=== PATIENT | male | born 1960 | race Caucasian/White ===

== ENCOUNTER → 2019-01-14 | Outpatient (CLI) | payer OTHER, SELFPAY ==
[2019-01-14 20:23] VITALS: BMI 35.0
[2019-01-14 22:23] LABS: Absolute Lymphocyte Count 1.96 X10^3/uL (0.83-4.51); Absolute Neutrophil Count 4.4 X10^3/uL (2.0-7.7); Basophil# 0.02 X10^3/uL; Basophil% 0.3 % (0-1); Eosinophil# 0.09 X10^3/uL; Eosinophils% 1.2 % (0-5); Hematocrit 44.5 % (40-54); Hemoglobin 14.8 g/dL (13.0-16.5); Lymphocyte # 1.96 X10^3/ul (4.0); Lymphocyte % 27.1 % (19-41); Mean Corp Hgb Conc 33.3 g/dL (32-36); Mean Corpuscular Hgb 30.7 pg (27.0-32.0); Mean Corpuscular Volume 92.3 fL (80-94); Mean Platelet Vol. 9.6 fl (6.2-12.0); Monocyte# 0.69 X10^3/uL; Monocyte% 9.6 % (0-10); NRBC Flagged by Analyzer 0 % (0-5); Neutrophil # 4.43 X10^3/uL (2.7-7.7); Neutrophil % 61.4 % (47-70); Platelet Count 278 K/mm3 (150-450); RBC Distribution Width CV 12.1 % (11.6-14.6); RBC Distribution Width SD 41.3 fl (35.1-43.9); Red Blood Count 4.82 M/mm3 (4.6-6.2); White Blood Count 7.2 K/mm3 (4.4-11.0)
[2019-01-14 22:40] LABS: AST(SGOT) 24 U/L (15-37); Alanine Aminotransfer ALT/SGPT 33 U/L (16-61); Albumin, Serum 3.4 g/dL (3.2-5.0); Alkaline Phosphatase 88 U/L (45-117); Anion Gap 6 (5-15); BUN 31 mg/dL (7-18); BUN/Creat Ratio 28.2 RATIO (10-20); Calcium,Total 8.9 mg/dL (8.5-10.1); Chloride 105 mmol/L (98-107); Cholesterol 221 mg/dL (200); EST Glomerular Filtration Rate 73 mL/min (>60); Est Glom Filt Rate - Afr Amer 89 mL/min (>60); Globulin 3.3 g/dL (2.2-4.2); Glucose 182 mg/dL (74-106); High Density Lipoprotein 46 mg/dL; PSA,Total - Annual Screen 0.44 ng/mL (0.00-4.00); Protein, Total 6.7 g/dL (6.4-8.2); Sodium Level 143 mmol/L (136-145); Triglycerides 277 mg/dL; Very Low Density Lipoprotein 55 mg/dL (5-40)
== END | disposition home or self-care (01) ==
PROVIDERS: Referring Provider Nurse Practitioner; Visit Provider Nurse Practitioner
DX: I10 Essential (primary) hypertension (principal); R35.0 Frequency of micturition
CPT/HCPCS: 80053; 80061; 84153; 85025; G0103

== ENCOUNTER → 2019-03-05 17:30 | Outpatient (CLI) | payer OTHER, SELFPAY ==
[2019-03-05 21:02] VITALS: BMI 34.7
[2019-03-06 01:35] LABS: Rheumatoid Factor < 10.0 IU/mL (<15); Thyroid Stim Hormone (TSH) 0.85 uIU/mL (0.358-3.74)
[2019-03-08 21:04] LABS: ANTINUCLEAR ANTIBODIES DIRECT Negative (Negative)
== END ==
PROVIDERS: Referring Provider Nurse Practitioner; Visit Provider Nurse Practitioner
DX: G62.9 Polyneuropathy, unspecified (principal); M25.50 Pain in unspecified joint; R73.9 Hyperglycemia, unspecified
CPT/HCPCS: 84443; 86038; 86225; 86235; 86431

== ENCOUNTER → 2020-01-26 | Outpatient (CLI) | payer OTHER, SELFPAY ==
[2020-01-26 17:58] VITALS: BMI 35.6
[2020-01-26 21:38] LABS: AST(SGOT) 28 U/L (15-37); Absolute Lymphocyte Count 2.03 X10^3/uL (0.83-4.51); Absolute Neutrophil Count 6.4 X10^3/uL (2.0-7.7); Alanine Aminotransfer ALT/SGPT 39 U/L (16-61); Albumin, Serum 3.6 g/dL (3.2-5.0); Alkaline Phosphatase 71 U/L (45-117); Anion Gap 6 (5-15); BUN 23 mg/dL (7-18); BUN/Creat Ratio 22.8 RATIO (10-20); Basophil# 0.03 X10^3/uL; Basophil% 0.3 % (0-1); Calcium,Total 9.4 mg/dL (8.5-10.1); Chloride 104 mmol/L (98-107); Cholesterol 229 mg/dL (200); Creatinine, Serum 1.01 mg/dL (0.70-1.30); EST Glomerular Filtration Rate 81 mL/min (>60); Eosinophil# 0.13 X10^3/uL; Eosinophils% 1.4 % (0-5); Est Glom Filt Rate - Afr Amer 98 mL/min (>60); Globulin 3.7 g/dL (2.2-4.2); Glucose 155 mg/dL (74-106); Hematocrit 46.4 % (40-54); Hemoglobin 15.3 g/dL (13.0-16.5); High Density Lipoprotein 56 mg/dL; Lymphocyte # 2.03 X10^3/ul (4.0); Lymphocyte % 21.6 % (19-41); Mean Corpuscular Hgb 31.2 pg (27.0-32.0); Mean Corpuscular Volume 94.5 fL (80-94); Mean Platelet Vol. 10.1 fl (6.2-12.0); Monocyte# 0.78 X10^3/uL; Monocyte% 8.3 % (0-10); NRBC Flagged by Analyzer 0 % (0-5); Neutrophil # 6.38 X10^3/uL (2.7-7.7); PSA,Total - Annual Screen 0.46 ng/mL (0.00-4.00); Platelet Count 284 K/mm3 (150-450); Potassium 3.5 mmol/L (3.5-5.1); Protein, Total 7.3 g/dL (6.4-8.2); RBC Distribution Width CV 12.4 % (11.6-14.6); RBC Distribution Width SD 42.8 fl (35.1-43.9); Red Blood Count 4.91 M/mm3 (4.6-6.2); Sodium Level 139 mmol/L (136-145); Triglycerides 142 mg/dL; Very Low Density Lipoprotein 28 mg/dL (5-40); White Blood Count 9.4 K/mm3 (4.4-11.0)
== END | disposition home or self-care (01) ==
LOC: OLS.AHF 21:12 → LABSPEC 01-27 07:18
PROVIDERS: Referring Provider Nurse Practitioner; Visit Provider Nurse Practitioner
DX: I10 Essential (primary) hypertension (principal); R35.0 Frequency of micturition; Z12.5 Encounter for screening for malignant neoplasm of prostate
CPT/HCPCS: 80053; 80061; 84153; 85025; G0103

== ENCOUNTER → 2021-02-07 00:01 | Outpatient (CLI) | payer OTHER, SELFPAY ==
[2021-02-07 00:08] LABS: Absolute Lymphocyte Count 1.69 X10^3/uL (0.83-4.51); Absolute Neutrophil Count 5.9 X10^3/uL (2.0-7.7); Basophil# 0.03 X10^3/uL; Basophil% 0.3 % (0-1); Eosinophil# 0.18 X10^3/uL; Hemoglobin 13.8 g/dL (13.0-16.5); Lymphocyte # 1.69 X10^3/ul (0.83-4.51); Lymphocyte % 18.6 % (19-41); Mean Corp Hgb Conc 32.9 g/dL (32-36); Mean Corpuscular Hgb 31.8 pg (27.0-32.0); Mean Corpuscular Volume 96.8 fL (80-94); Monocyte# 1.33 X10^3/uL; Monocyte% 14.6 % (0-10); NRBC Flagged by Analyzer 0 % (0-5); Neutrophil # 5.85 X10^3/uL (2.7-7.7); Neutrophil % 64.3 % (47-70); Platelet Count 288 K/mm3 (150-450); RBC Distribution Width CV 12.7 % (11.6-14.6); RBC Distribution Width SD 44.4 fl (35.1-43.9); Red Blood Count 4.34 M/mm3 (4.6-6.2); White Blood Count 9.1 K/mm3 (4.4-11.0)
[2021-02-07 00:29] LABS: ALB/GLOB Ratio 0.9 RATIO (0.9-2.4); AST(SGOT) 25 U/L (15-37); Alanine Aminotransfer ALT/SGPT 32 U/L (16-61); Albumin, Serum 3.3 g/dL (3.2-5.0); Alkaline Phosphatase 84 U/L (45-117); Anion Gap 4 (5-15); BUN 27 mg/dL (7-18); BUN/Creat Ratio 29.3 RATIO (10-20); Calcium,Total 9.1 mg/dL (8.5-10.1); Chloride 104 mmol/L (98-107); Cholesterol 187 mg/dL (200); Creatinine, Serum 0.92 mg/dL (0.70-1.30); EST Glomerular Filtration Rate 89 mL/min (>60); Est Glom Filt Rate - Afr Amer 108 mL/min (>60); Globulin 3.7 g/dL (2.2-4.2); Glucose 108 mg/dL (74-106); High Density Lipoprotein 46 mg/dL; Potassium 3.3 mmol/L (3.5-5.1); Sodium Level 136 mmol/L (136-145); Triglycerides 130 mg/dL; Very Low Density Lipoprotein 26 mg/dL (5-40)
[2021-02-07 00:30] LABS: PSA,Total - Annual Screen 0.56 ng/mL (0.00-4.00); Thyroid Stim Hormone (TSH) 0.86 uIU/mL (0.358-3.74)
== END ==
PROVIDERS: PCP Nurse Practitioner; Referring Provider Nurse Practitioner; Visit Provider Nurse Practitioner
DX: I10 Essential (primary) hypertension (principal); J30.2 Other seasonal allergic rhinitis; M25.521 Pain in right elbow; M25.522 Pain in left elbow; R35.0 Frequency of micturition
CPT/HCPCS: 80053; 80061; 84153; 84439; 84443; 85025; G0103

== ENCOUNTER → 2021-12-17 | Outpatient (CLI) | payer OTHER, SELFPAY ==
[2021-12-17 21:44] LABS: AST(SGOT) 38 U/L (15-37); Alanine Aminotransfer ALT/SGPT 57 U/L (16-61); Albumin, Serum 3.6 g/dL (3.2-5.0); Alkaline Phosphatase 85 U/L (45-117); Anion Gap 5 (5-15); BUN 21 mg/dL (7-18); BUN/Creat Ratio 15.9 RATIO (10-20); Calcium,Total 9.4 mg/dL (8.5-10.1); Chloride 103 mmol/L (98-107); Cholesterol 222 mg/dL (200); Creatinine, Serum 1.32 mg/dL (0.70-1.30); EST Glomerular Filtration Rate 59 mL/min (>60); Est Glom Filt Rate - Afr Amer 71 mL/min (>60); Globulin 3.5 g/dL (2.2-4.2); Glucose 94 mg/dL (74-106); High Density Lipoprotein 46 mg/dL; Potassium 4.3 mmol/L (3.5-5.1); Protein, Total 7.1 g/dL (6.4-8.2); Sodium Level 139 mmol/L (136-145); Triglycerides 305 mg/dL; Very Low Density Lipoprotein 61 mg/dL (5-40)
[2021-12-17 21:50] LABS: Absolute Lymphocyte Count 2.18 X10^3/uL (0.83-4.51); Absolute Neutrophil Count 5.3 X10^3/uL (2.0-7.7); Basophil# 0.02 X10^3/uL; Basophil% 0.2 % (0-1); Eosinophil# 0.23 X10^3/uL; Eosinophils% 2.6 % (0-5); Hematocrit 42.4 % (40-54); Hemoglobin 14.3 g/dL (13.0-16.5); Lymphocyte # 2.18 X10^3/ul (0.83-4.51); Lymphocyte % 24.5 % (19-41); Mean Corp Hgb Conc 33.7 g/dL (32-36); Mean Corpuscular Hgb 33.6 pg (27.0-32.0); Mean Corpuscular Volume 99.5 fL (80-94); Mean Platelet Vol. 9.6 fl (6.2-12.0); Monocyte# 1.15 X10^3/uL; Monocyte% 12.9 % (0-10); NRBC Flagged by Analyzer 0 % (0-5); Neutrophil # 5.29 X10^3/uL (2.7-7.7); Neutrophil % 59.4 % (47-70); Platelet Count 252 K/mm3 (150-450); RBC Distribution Width CV 13.4 % (11.6-14.6); RBC Distribution Width SD 48.2 fl (35.1-43.9); Red Blood Count 4.26 M/mm3 (4.6-6.2); White Blood Count 8.9 K/mm3 (4.4-11.0)
[2021-12-20 14:06] LABS: PSA, Free 0.16 ng/mL; PSA, Free % 29.9 % (.); PSA, Total Ultrasensitive 0.536 ng/mL (0.000-4.000)
== END | disposition home or self-care (01) ==
PROVIDERS: PCP Nurse Practitioner; Visit Provider Nurse Practitioner
DX: I10 Essential (primary) hypertension (principal)
CPT/HCPCS: 80053; 80061; 84153; 84154; 85025

== ENCOUNTER → 2023-03-19 | Outpatient (CLI) | payer BC, SELFPAY ==
[2023-03-19 22:15] LABS: Absolute Lymphocyte Count 2.55 X10^3/uL (0.83-4.51); Absolute Neutrophil Count 5.8 X10^3/uL (2.0-7.7); Basophil# 0.03 X10^3/uL; Basophil% 0.3 % (0-1); Eosinophil# 0.11 X10^3/uL; Eosinophils% 1.1 % (0-5); Hematocrit 44.3 % (40-54); Hemoglobin 14.6 g/dL (13.0-16.5); Lymphocyte # 2.55 X10^3/ul (0.83-4.51); Lymphocyte % 25.7 % (19-41); Mean Corpuscular Hgb 32.6 pg (27.0-32.0); Mean Corpuscular Volume 98.9 fL (80-94); Mean Platelet Vol. 9.5 fl (6.2-12.0); Monocyte# 1.41 X10^3/uL; Monocyte% 14.2 % (0-10); NRBC Flagged by Analyzer 0 % (0-5); Neutrophil # 5.78 X10^3/uL (2.7-7.7); Neutrophil % 58.4 % (47-70); Platelet Count 285 K/mm3 (150-450); RBC Distribution Width CV 13.9 % (11.6-14.6); RBC Distribution Width SD 50.4 fl (35.1-43.9); Red Blood Count 4.48 M/mm3 (4.6-6.2); White Blood Count 9.9 K/mm3 (4.4-11.0)
[2023-03-19 22:45] LABS: ALB/GLOB Ratio 0.9 RATIO (0.9-2.4); AST(SGOT) 26 U/L (15-37); Alanine Aminotransfer ALT/SGPT 40 U/L (16-61); Albumin, Serum 3.4 g/dL (3.2-5.0); Alkaline Phosphatase 81 U/L (45-117); Anion Gap 6 (5-15); BUN 22 mg/dL (7-18); BUN/Creat Ratio 20.2 RATIO (10-20); Calcium,Total 8.8 mg/dL (8.5-10.1); Chloride 104 mmol/L (98-107); Cholesterol 201 mg/dL (200); Creatinine, Serum 1.09 mg/dL (0.70-1.30); EST Glomerular Filtration Rate 73 mL/min (>60); Est Glom Filt Rate - Afr Amer 88 mL/min (>60); Globulin 3.6 g/dL (2.2-4.2); Glucose 104 mg/dL (74-106); High Density Lipoprotein 49 mg/dL; PSA,Total - Annual Screen 0.64 ng/mL (0.00-4.00); Potassium 3.7 mmol/L (3.5-5.1); Sodium Level 139 mmol/L (136-145); Thyroid Stim Hormone (TSH) 1.58 uIU/mL (0.358-3.74); Triglycerides 204 mg/dL; Very Low Density Lipoprotein 41 mg/dL (5-40)
== END | disposition home or self-care (01) ==
PROVIDERS: PCP Nurse Practitioner; Visit Provider Nurse Practitioner
DX: I10 Essential (primary) hypertension (principal); L40.50 Arthropathic psoriasis, unspecified; G62.9 Polyneuropathy, unspecified; R35.0 Frequency of micturition
CPT/HCPCS: 80053; 80061; 84153; 84443; 85025; G0103

== ENCOUNTER → 2024-09-23 | Outpatient (CLI) | payer BC, SELFPAY ==
--- OUTSIDE RECORDS SUMMARY | 2024-09-24 03:08 | XMS RPT_ITS | CCD ---
Author Organization [facility] CliniSytn Care Team Providers Care Fresh Work Wrapper Layer Name Role Phone TENNILLE COLBERT Unavailable Unavailable ROSNECK, TENNILLE Unavailable Unavailable MAIN, BENNETT A Referring Unavailable MAIN, BENNETT A Referring Unavailable MAIN, BENNETT A Referring Unavailable MAIN, BENNETT A Referring Unavailable MAIN, BENNETT A Referring Unavailable MAIN, BENNETT A Referring Unavailable MAIN, BENNETT A Referring Unavailable MAIN, BENNETT A Referring Unavailable MAIN, BENNETT A Referring Unavailable MAIN, BENNETT A Referring Unavailable MAIN, BENNETT A Referring Unavailable MAIN, BENNETT A Referring Unavailable MAIN, BENNETT A Referring Unavailable MAIN, BENNETT A Referring Unavailable MAIN, BENNETT A Referring Unavailable MAIN, BENNETT A Referring Unavailable MAIN, BENNETT A Referring Unavailable MAIN, BENNETT A Referring Unavailable MAIN, BENNETT A Referring Unavailable MAIN, BENNETT A Referring Unavailable MAIN, BENNETT A Referring Unavailable Pcp, No Unavailable Unavailable [place] DIRECTOR CHILD.ASSISTANT TRACK AND FIELD COACH, Dmitri L Primary Care Provide r Pcp, No Unavailable Unavailable [place] DIRECTOR CHILD.ASSISTANT TRACK AND FIELD COACH, Dmitri L Primary Care Provide r Ian CAKE STRIPPER, Dmitri Attending Unavailable [place] CAKE STRIPPER, Dmitri Primary Care Unavailable Pcp DIRECTOR CHILD, No Unavailable Unavailable [place] DIRECTOR CHILD.ASSISTANT TRACK AND FIELD COACH, Dmitri L Primary Care Provide r [place] DIRECTOR CHILD-ASSISTANT TRACK AND FIELD COACH, Dmitri L Primary Care Provide r Pcp DIRECTOR CHILD, No Unavailable Unavailable BOSTON, DMITRI L Primary Care Unavailable BOSTON, DMITRI L Primary Care Unavailable LOU LEAL Attending UnavailSRAVANI Jennings Attending Unavailable BOSTON, DMITRI L Primary Care Unavailable SRAVANI ALLEN Attending Unavailable [place], DMITRI L Primary Care Unavailable CASSANDRA SULLIVAN Attending Unavailab le BOSTON, DMITRI L Primary Care Unavailable CASSANDRA SULLIVAN Attending Unavailab DMITRI Carter Primary Care Unavailable CASSANDRA SULLIVAN Attending Unavailab DMITRI Carter Primary Care Unavailable Allergies Allergy Classification Reported Allergen(s) Allergy Type Date of Onset Reaction(s) Facility (3 sources) meloxicam; Translations: [MELOXICAM] Drug Allergy 07-22-2024 Rash [facility] Other [facility] Medications Current Medications Medication Drug Class(es) Dates Sig (Normalized) Sig (Original) 0.8 ml adalimumab 50 mg/ml auto-injector (11 sources) Tumor Necrosis Factor Shannan Start: 01-28-2022 HUMIRA PEN 40 mg/0.8 mL 01/28/2022 Active Start: 12-17-2021 Adalimumab (Hu ana) 40 mg/0.8 mL syringe kit Active 0 SC .COMPLEX December 16, 2021 11:00pm inject one - 40 mg/0.8 mL syringe every 2 weeks subcut [id number] 200 actuat albuterol 0.09 mg/actuat metered dose inhaler (9 sources) beta2-Adrenergic Agonist Start: 07-22-2024 take 2 puff(s) by inhalation every four hours as needed for wheezing albuterol HFA (PROVENTIL HFA, VENTOLIN HFA) 90 mcg/actuation inhaler Inhale 2 puffs as instructed every 4 hours as needed for wheezing/shortness of breath. 1 each 07/22/2024 Active Start: 08-27-2019 End: 03-19-2023 take 1 puff(s) by inhalation every four hours Albuterol Sulfate (Proair Hfa) 90 mcg/actuation HFA aerosol inhaler Active 2 PUFF INHALATION Q4H 8.5 March 19, 2023 7:40pm take 2 puff(s) by in halation every six hours for wheezing albuterol 90 mcg/actuation inhaler Inhale 2 puffs every 6 hours if needed for wheezing. Active ascorbic acid 1000 mg oral tablet (6 sources) Vitamin C take 1 tablet by mouth once daily Ascorbic Acid 1,000 mg tablet 1 tab(s) orally once a day for 30 day(s) Active b complex 0.4 mg tablet (1 source) take 1 tablet by mouth once daily b complex 0.4 mg tablet Take 1 tablet by mouth once daily. Active chlorthalidone 25 mg oral tablet (19 sources) Thiazide-like Diuretic Start: 01-15-20 End: 03-19-20 take 25 mg by mouth once daily Chlorthalidone Active 25 MG PO DAILY 90 March 19, 2023 7:40pm Comment on above: Take 25 mg by mouth once daily. cholecalciferol 0.01 mg oral tablet (6 sources) Vitamin D cholecalciferol (VITAMIN D3) 400 unit tab as directed orally once a day for 30 day(s) Active take 1 tablet by mouth once brian y cholecalciferol (Vitamin D3) 25 MCG (1000 UT) tablet Take 1,000 Units by mouth once daily. Active cyclobenzaprine hydrochloride 10 mg oral tablet (8 sources) Muscle Relaxant Start: 03-19-2023 take 10 mg by mouth three times daily Cyclobenzaprine Active 10 MG PO THREE TIMES A DAY 60 March 19, 2023 12:00am Start: 03-18-2023 End: 09-13-2024 take 1 tablet by mouth every eight hours as needed cyclobenzaprine (FLEXERIL) 10 mg tablet Take 1 tablet by mouth every 8 hours as needed. 8 tablet 03/18/2023 09/13/2024 Discontinued folic acid 1 mg oral tablet (12 sources) Start: 08-18-2020 folic acid 1 m g tablet 08/18/2020 Active lifitegrast 50 mg/ml ophthalmic solution (11 sources) Lymphocyte Function-Associate d Antigen-1 Antagonist Start: 02-15-2022 End: 02-15-2023 take 1 drop(s) into the eye(s) twice daily XIIDRA 5 % ophthalmic drops INSTILL 1 DROP IN BOTH EYES TWICE DAILY 60 mL 2 03/01/2022 Active Start: 06-27-2021 End: 02-15-2022 take 1 drop(s) into the eye(s) twice daily XIIDRA 5 % ophthalmic drops USE 1 DROP IN EYES TWICE DAILY. 60 mL 2 06/27/2021 02/15/2022 Discontinued Comment on above: Use 1 Drop in both e yes twice daily. USE 1 DROP IN EYES T WICE DAILY. INSTILL 1 DROP IN JANE TH EYES TWICE DAILY lisinopril 10 mg oral tablet (18 sources) Angiotensin Converting Enzyme Inhibitor Start: 01-15-20 End: 03-19-20 take 10 mg by mouth once daily Lisinopril Active 10 MG PO DAILY March 19, 2023 7:41pm Comment on above: Take 10 mg by mouth once daily. loratadine 10 mg disintegrating oral tablet (1 source) take 1 tablet by mouth once daily loratadine (Claritin Reditabs) 10 mg disintegrating tablet Dissolve 10 mg in the mouth once daily. Active methotrexate 2.5 mg oral tablet (12 sources) Folate Analog Metabolic Inhibitor Start: 02-07-20 take 7.5 mg by mouth every week Methotrexate Sodium Active 7.5 MG PO EVERY WEEK February 05, 2021 11:00pm Start: 08-30-2020 methotrexate 2 .5 mg tablet 08/30/2020 Active methylPREDNISolone (1 source) Corticosteroid Start: 05-20-2024 methylPREDNISolone (Medrol Dospak) 4 mg tablets Indications: Pharyngitis, unspecified etiology , Dysfunction of both eustachian tubes Follow schedule on package instructions 21 tablet 05/20/2024 Active 24 hr metoprolol succinate 50 mg extended release oral tablet (6 sources) beta-Adrenergic Shannan take 1 tablet by mouth once daily metoprolol succinate ER (TOPROL XL) 50 mg 24 hr tablet TAKE 1 TABLET (50 MG) ORALLY DAILY Active phenylephrine hydrochloride 25 mg/ml ophthalmic solution (1 source) alpha-1 Adrenergic Agonist Start: 02-15-2022 End: 02-16-2022 PHENYLephrine 2.5 % 1 Drop (AK-DILATE, SUDHA-SYNEPHRINE) predniSONE 20 mg oral tablet (1 source) Start: 03-19-2023 take 40 mg by mouth once daily Prednisone Active 40 MG PO DAILY March 19, 2023 12:00am proparacaine hydrochloride 5 mg/ml ophthalmic solution (1 source) Local Anesthetic Start: 02-15-2022 End: 02-16-2022 proparacaine 0.5 % 1 Drop (ALCAINE) sulfaSALAzine 500 mg delayed release oral tablet (10 sources) Aminosalicylate Start: 04-06-2024 take 3 tablets by mouth twice daily sulfaSALAzine (Azulfidine) [address] tablet TAKE 3 TABLETS ORALLY 2 TIMES A DAY 30 DAY(S) 04/06/2024 Active Start: 04-10-2021 take 2 tablets by mo [facility] twice daily sulfaSALAzine EC (AZULFIDINE EN) 500 mg EC tablet 2 TAB(S) ORALLY 2 TIMES A DAY 30 DAYS 04/10/2021 Active Comment on above: 2 TAB(S) ORALLY 2 TI MES A DAY 30 DAYS traMADol hydrochloride 50 mg oral tablet (1 source) Opioid Agonist Start: 03-19-20 take 50 mg by mouth twice daily Tramadol Active 50 MG PO TWICE A DAY 28 March 19, 2023 12:00am tropicamide 10 mg/ml ophthalmic solution (1 source) Anticholinergic Start: 02-16-20 End: 02-17-20 tropicamide 1 % 1 Drop (MYDRIACYL) 24 hr upadacitinib 15 mg extended release oral tablet (6 sources) Start: 04-09-19 Rinvoq 15 mg tablet extended release 24 hr 04/09/2024 Active Start: 08-22-2023 take 1 tablet by lena th once daily RINVOQ 15 mg tablet 1 tablet Orally Once a day for 30 days 08/22/2023 Active vitamin b12 1 mg oral tablet (6 sources) Vitamin B12 take 1 tablet by mouth once daily cyanocobalamin (VITAMIN B-12) 1,000 mcg tab 1 tab(s) orally once a day for 30 day(s) Active vitamin e 180 mg oral capsule (1 source) take 1 capsule by mouth once daily vitamin E 180 mg (400 unit) capsule Take 400 Units by mouth once daily. Active Completed/Discontinued Medications Medication Drug Class(es) Dates Sig (Normalized) Sig (Original) acetaminophen 500 mg oral tablet (1 source) Start: 01-26-2018 End: 02-15-2022 take 500-1000 mg by mouth every six hours as needed acetaminophen (ACETAMINOPHEN EXTRA STRENGTH) 500 mg tablet Take 1-2 tablets by mouth every 6 hours as needed for Pain. 60 tablet 0 01/26/2018 02/15/2022 Discontinued (Discontinued by another Health Care Provider) Comment on above: Take 1-2 tablets by mouth every 6 hours as needed for Pain. amoxicillin 875 mg / clavulanate 125 mg oral tablet (2 sources) Penicillin-class Antibacterial Start: 12-23-2017 End: 03-26-2018 take 1 tablet by mouth twice daily Amoxicillin-Pot Clavulanate Discontinued 1 TABLET PO TWICE A DAY December 22, 2017 11:00pm March 26, 2018 8:49pm baloxavir marboxil 40 mg oral tablet (2 sources) Start: 03-26-2018 End: 03-05-2019 take 1 tablet by mouth once Baloxavir Marboxil (Xofluza) 40 mg tablet Discontinued 40 MG PO ONCE March 26, 2018 12:00am March 05, 2019 5:20pm as a single dose betamethasone 3 mg/ml / betamethasone acetate 3 mg/ml injectable suspension (4 sources) Corticosteroid Start: 09-13-2024 End: 09-13-2024 betamethasone acetate-betamethas one sodium phosphate 12 mg injection (CELESTONE) Start: 09-13-2024 End: 09-13-2024 12 mg, Injection - FOR ORTHO USE ONLY, ONCE, 1 dose, Starting on Fri09/13/24 at 0837, Until Fri09/13/24 at 0837 Start: 06-11-2024 End: 06-11-2024 betamethasone acetate-betame thasone sodium phosphate 12 mg injection (CELESTONE) Start: 06-11-2024 End: 06-11-2024 12 mg, Injection - FOR ORTHO USE ONLY, ONCE, 1 dose, Starting on Fri06/11/24 at 0814, Until Fri06/11/24 at 0814 30 ml bupivacaine hydrochloride 5 mg/ml injection (4 sources) Amide Local Anesthetic Start: 02-27-2024 End: 02-27-2024 BUPivacaine (PF) 0.5 % (5 mg/mL) 8 mL injection Start: 02-27-2024 End: 02-27-2024 8 mL, Injection - FOR ORTHO USE ONLY, ONCE, 1 dose, Starting on Fri02/27/24 at 1124, Until Fri02/27/24 at 1124 Start: 10-31-2023 End: 10-31-2023 BUPivacaine (PF) 0.5 % (5 mg /mL) 8 mL injection cefuroxime 500 mg oral tablet (3 sources) Cephalosporin Antibacterial Start: 07-31-2022 End: 03-19-2023 take 500 mg by mouth twice daily Cefuroxime Axetil Discontinued 500 MG PO TWICE A DAY July 30, 2022 11:00pm March 19, 2023 7:40pm Start: 03-26-2018 End: 04-05-2018 take 500 mg by mouth every twelve hours Cefuroxime Axetil Discontinued 500 MG PO Q12H 24 01March 26, 2018 12:00am April 05, 2018 12:09am gabapentin 100 mg oral capsule (2 sources) Anti-epileptic Agent Start: 03-05-2019 End: 01-26-2020 take 100 mg by mouth four times daily Gabapentin Discontinued 100 MG PO .qid 120 March 05, 2019 12:00am January 26, 2020 4:59pm hydroxychloroquine sulfate 200 mg oral tablet (1 source) Antimalarial, Antirheumatic Agent Start: 07-14-2020 End: 02-15-2022 take 2 tablets by mouth once daily hydrOXYchloroQUINE (PLAQUENIL) 200 mg tablet Take 400 mg by mouth once daily. 0 07/14/2020 02/15/2022 Discontinued (Discontinued by another Health Care Provider) Comment on above: Take 400 mg by mouth once daily. 10 ml lidocaine hydrochloride 10 mg/ml injection (4 sources) Antiarrhythmic, Amide Local Anesthetic Start: 09-13-2024 End: 09-13-2024 lidocaine (PF) 10 mg/mL (1 %) 3 mL injection (XYLOCAINE) Start: 09-13-2024 End: 09-13-2024 3 mL, Injection - FOR ORTHO USE ONLY, ONCE, 1 dose, Starting on Fri09/13/24 at 0837, Until Fri09/13/24 at 0837 Start: 06-11-2024 End: 06-11-2024 lidocaine (PF) 10 mg/mL (1 % ) 3 mL injection (XYLOCAINE) Start: 06-11-2024 End: 06-11-2024 3 mL, Injection - FOR ORTHO USE ONLY, ONCE, 1 dose, Starting on Fri06/11/24 at 0814, Until Fri06/11/24 at 0814 meloxicam 15 mg oral tablet (2 sources) Nonsteroidal Anti-inflammatory Drug Start: 03-15-2019 End: 01-26-2020 take 15 mg by mouth once daily Meloxicam Discontinued 15 MG PO daily March 15, 2019 12:00am January 26, 2020 5:00pm oseltamivir 75 mg oral capsule (2 sources) Neuraminidase Inhibitor Start: 03-26-2018 End: 03-31-2018 take 1 capsule by mouth twice daily Oseltamivir (Tamiflu) 75 mg capsule Discontinued 75 MG PO TWICE A DAY 10 March 26, 2018 12:00am March 31, 2018 12:09am 1 ml triamcinolone acetonide 40 mg/ml injection (4 sources) Corticosteroid Start: 02-27-2024 End: 02-27-2024 triamcinolone acetonide 80 mg injection (KeNALog 40) Start: 02-27-2024 End: 02-27-2024 80 mg, Injection - FOR ORTHO USE ONLY, ONCE, 1 dose, Starting on Fri02/27/24 at 1124, Until Fri02/27/24 at 1124 Start: 10-31-2023 End: 10-31-2023 triamcinolone acetonide 80 m g injection (KeNALog 40) Problems Active Problems Problem Classification Problem Date Documented Date Episodic/Chronic Cataract (1 source) Bilateral senile combined form cataracts of eyes; Translations: [Combined forms of age-related cataract, bilateral] Chronic Chronic obstructive pulmonary disease and bronchiectasis (3 sources) Bronchitis; Translations: [Bronchitis, not specified as acute or chronic] Onset: 07-22-2024 12-23-2017 Episodic Essential hypertension (14 sources) Hypertensive disorder; Translations: [Essential (primary) hypertension] Onset: 01-22-2018 01-22-2018 Chronic Gout and other crystal arthropathies (5 sources) Calcium pyrophosphate deposition disease; Translations: [Other chondrocalcinosis, unspecified site] 10-31-2023 Chronic Inflammation; infection of eye (except that caused by tuberculosis or sexually transmitteddisease) (9 sources) Bilateral punctate keratitis of eyes; Translations: [Punctate keratitis, bilateral] Onset: 07-03-2019 07-03-2019 Chronic Osteoarthritis (10 sources) Arthritis of elbow; Translations: [Primary osteoarthritis, unspecified elbow] Onset: 11-14-2009 11-14-2009 Chronic Other connective tissue disease (2 sources) Other symptoms and signs involving the musculoskeletal system; Translations: [Left leg weakness] Onset: 07-06-2018 Episodic Other eye disorders (1 source) Bilateral vitreous floaters; Translations: [Other vitreous opacities, bilateral] Chronic Other inflammatory condition of skin (2 sources) Psoriatic arthritis; Translations: [Arthropathic psoriasis, unspecified] 02-06-2021 Chronic Other injuries and conditions due to external causes (2 sources) Unspecified injury of muscle, fascia and tendon of the posterior muscle group at thigh level, left thigh, sequela; Translations: [Left hamstring injury, sequela] Onset: 07-06-2018 Episodic Other lower respiratory disease (1 source) Shortness of breath; Translations: [SOB (shortness of breath)] Onset: 07-22-2024 Episodic Other nervous system disorders (2 sources) Polyneuropathy; Translations: [Polyneuropathy, unspecified] 03-05-2019 Chronic Other nervous system disorders (9 sources) Ulnar neuritis; Translations: [Lesion of ulnar nerve, unspecified upper limb] Onset: 06-20-2011 06-20-2011 Chronic Other nervous system disorders (9 sources) Ulnar nerve entrapment; Translations: [Lesion of ulnar nerve, unspecified upper limb] Onset: 07-02-2011 07-02-2011 Chronic Other nervous system disorders (1 source) Other acute postprocedural pain; Translations: [Other acute postprocedural pain] Onset: 01-26-2018 Episodic Other non-traumatic joint disorders (8 sources) Pain in left knee; Translations: [Pain in joint, lower leg] Onset: 10-31-2023 10-21-2023 Episodic Other upper respiratory disease (2 sources) Seasonal allergy; Translations: [Other seasonal allergic rhinitis] 12-15-2018 Chronic Other upper respiratory infections (2 sources) Maxillary sinusitis; Translations: [Chronic maxillary sinusitis] 03-26-2018 Chronic Other upper respiratory infections (3 sources) Sore throat symptom; Translations: [Acute pharyngitis, unspecified] 05-20-2024 Episodic Otitis media and related conditions (3 sources) Otitis media; Translations: [Otitis media, unspecified, bilateral] 03-26-2018 Episodic Rheumatoid arthritis and related disease (10 sources) Rheumatoid arthritis; Translations: [Rheumatoid arthritis, unspecified] Onset: 07-28-2020 07-28-2020 Chronic Unclassified (1 source) Physical Therapy Onset: 01-19-2018 Past or Other Problems Problem Classification Problem Date Documented Date Episodic/Chronic Allergic reactions (4 sources) Allergic reaction to drug; Translations: [Allergy, unspecified, initial encounter] 05-29-2019 Episodic Complications of surgical procedures or medical care (9 sources) Difficult intubation; Translations: [Failed or difficult intubation, initial encounter] Onset: 01-22-2018 01-22-2018 Episodic Genitourinary symptoms and ill-defined conditions (2 sources) Increased frequency of urination; Translations: [Frequency of micturition] 02-06-2021 Episodic Influenza (2 sources) Influenza due to Influenza A virus subtype H1N1; Translations: [Influenza due to other identified influenza virus with other respiratory manifestations] 03-26-2018 Episodic Open wounds of head; neck; and trunk (18 sources) Conjunctival laceration; Translations: [Ocular laceration without prolapse or loss of intraocular tissue, right eye, initial encounter] Onset: 11-13-2018 11-13-2018 Episodic Other aftercare (9 sources) Taking high risk medication; Translations: [Other fdc (current) drug therapy] Onset: 07-28-2020 07-28-2020 Episodic Other aftercare (9 sources) Drug therapy finding; Translations: [Other fdc (current) drug therapy] Onset: 07-28-2020 07-28-2020 Episodic Other connective tissue disease (1 source) Musculoskeletal pain; Translations: [Myalgia, other site] 03-19-2023 Episodic Other eye disorders (10 sources) Tear film insufficiency; Translations: [Dry eye syndrome of bilateral lacrimal glands] Onset: 07-28-2020 Episodic Other eye disorders (10 sources) Meibomian gland dysfunction of bilateral eyes; Translations: [Meibomian gland dysfunction right eye, upper and lower eyelids] Onset: 07-03-2019 Episodic Other eye disorders (9 sources) Conjunctival cyst of right eye; Translations: [Conjunctival cysts, right eye] Onset: 11-18-2018 11-18-2018 Episodic Other inflammatory condition of skin (2 sources) Pruritus of skin; Translations: [Pruritus, unspecified] 05-29-2019 Episodic Other injuries and conditions due to external causes (1 source) Injury of musculoskeletal system; Translations: [Other injury of unspecified body region, initial encounter] 03-19-2023 Episodic Other lower respiratory disease (2 sources) Dyspnea; Translations: [Shortness of breath] 08-27-2019 Episodic Other non-traumatic joint disorders (2 sources) Joint pain; Translations: [Pain in unspecified joint] 03-05-2019 Episodic Other skin disorders (9 sources) Skin lesion; Translations: [Disorder of the skin and subcutaneous tissue, unspecified] Onset: 07-03-2019 07-03-2019 Episodic Residual codes; unclassified (2 sources) Edema of lower extremity; Translations: [Localized edema] 01-14-2019 Episodic Spondylosis; intervertebral disc disorders; other back problems (18 sources) Cervical radiculopathy; Translations: [Radiculopathy, cervical region] Onset: 02-20-2012 02-20-2012 Episodic Spondylosis; intervertebral disc disorders; other back problems (2 sources) Spondylosis; intervertebral disc disorders; other back problems 11-05-2021 Sprains and strains (20 sources) Strain of muscle, fascia and tendon of the posterior muscle group at thigh level, left thigh, initial encounter; Translations: [Rupture of hamstring tendon] Onset: 01-21-2018 01-21-2018 Episodic Unclassified (2 sources) removed ulnar nerve for pain 11-05-2021 Results Test Name Value Interpretation Reference Range Facility [facility] 09-13-2024 CNOV Office Visit (ORMDNA ) GREY ALONZO ([id number]) 1960 M Date Time Provider Department 09/13/24 7:45 AM SRAVANI ALLEN During your visit today, we recorded the following information about you: Sravani Allen PA-C 09/13/2024 8:38 AM Signed Mr. Grey Alonzo presents today for left knee corticosteroid injection. He has osteoarthritis and has been treated with injections in the past. Large Joint Arthro/Inj: L knee joint 09/13/2024 8:37 AM The procedure site was prepped in the usual sterile fashion. Site: L knee joint Aspirate: 45 mL clear and serous Medications: 12 mg betamethasone acetate-betamethasone sodium phosphate 6 mg/mL Anesthetics: 3 mL lidocaine (PF) 10 mg/mL (1 %) Outcome: Tolerated well, no immediate complications Post-injection instructions were reviewed with the patient and the patient voiced understanding of these instructions. Informed Consent Consent Obtained: Verbal [place] Protocol A moment to CARE was completed. SIGN IN Personnel directly involved with the procedure wore the appropriate PPE. Special Equipment: N/A Patient/Surrogate Stated/Verified: Patient name, Date of , Relevant allergies and Intended procedure TIME OUT Relevant labs, photos, and/or imaging studies have been reviewed. Consent documented and matches the intended procedure. Correct side/site marked and visible. Medications required for procedure verified. No fire risk assessment and interventions applicable. No implant(s) inserted. SIGN OUT No specimen collected. Sravani Allen PA-C Allergies As of Date: 09/13/2024 Noted Allergy Reaction MELOXICAM 07/22/2024 2 - Rash Date Reviewed: 09/13/2024 Reviewed by: Sravani Allen PA-C - Fully Assessed Reason for Visit: Established Patient [175] Follow Up [171] Primary Visit Diagnosis:Chronic pain of left knee [M25.562, G89.29] Other Visit Diagnoses:Pseudogout [M11.20] Primary osteoarthritis of left knee [M17.12] Order(s):Large Joint Arthro/Inj: L knee joint [[id number]] Order #: [id number] [] betamethasone acetate-betamethasone sodium phosphate 12 mg injection (CELESTONE)Disp: Rfl: [] lidocaine (PF) 10 mg/mL (1 %) 3 mL injection (XYLOCAINE)Disp: Rfl: Prescriptions as of 09/13/2024 - albuterol HFA (PROVENTIL HFA, VENTOLIN HFA) 90 mcg/actuation inhaler Inhale 2 puffs as instructed every 4 hours as needed for wheezing/shortness of breath. - RINVOQ 15 mg tablet 1 tablet Orally Once a day for 30 days - metoprolol succinate ER (TOPROL XL) 50 mg 24 hr tablet TAKE 1 TABLET (50 MG) ORALLY DAILY - cyanocobalamin (VITAMIN B-12) 1,000 mcg tab 1 tab(s) orally once a day for 30 day(s) - cholecalciferol (VITAMIN D3) 400 unit tab as directed orally once a day for 30 day(s) - Ascorbic Acid 1,000 mg tablet 1 tab(s) orally once a day for 30 day(s) - XIIDRA 5 % ophthalmic drops INSTILL 1 DROP IN BOTH EYES TWICE DAILY - HUMIRA PEN 40 mg/0.8 mL - sulfaSALAzine EC (AZULFIDINE EN) 500 mg EC tablet 2 TAB(S) ORALLY 2 TIMES A DAY 30 DAYS - methotrexate 2.5 mg tablet - folic acid 1 mg tablet - chlorthalidone (HYGROTON) 25 mg tablet Take 25 mg by mouth once daily. - lisinopril (ZESTRIL, PRINIVIL) 10 mg tablet Take 10 mg by mouth once daily. Problem List As Of Date 09/13/2024 Noted Resolved Elbow Arthritis [M19.029] 11/14/2009 Ulnar neuritis [G56.20] 06/20/2011 Ulnar nerve entrapment [G56.20] 07/02/2011 Cervical radiculopathy [M54.12] 02/20/2012 Cervicalgia [M54.2] 04/15/2012 Left proximal hamstring tendon rupture [S76.312*01/21/2018 Rupture of left proximal hamstring tendon [S76.*01/21/2018 Hamstring tendon rupture [S76.319A] 01/21/2018 Essential hypertension [I10] 01/22/2018 Difficult intubation [T88.4XXA] 01/22/2018 Conjunctival laceration, right, initial encount*11/13/2018 Conjunctival cyst of right eye [H11.441] 11/18/2018 Conjunctival laceration, right, sequela [S05.31*03/20/2019 Benign skin lesion [L98.9] 07/03/2019 Punctate keratitis of both eyes [H16.143] 07/03/2019 Meibomian gland dysfunction (MGD) of upper and *07/03/2019 High risk medication use [Z79.899] 07/28/2020 Long-term use of Plaquenil [Z79.899] 07/28/2020 Rheumatoid arthritis (HCC) [M06.9] 07/28/2020 Dry eye syndrome, bilateral [H04.123] 07/28/2020 Prescriptions ordered this encounter Disp Refills Start End BETAMETHASONE ACETATE AND SODIUM JASWANT* 09/13/2024 09/13/2024 Route: Inj-ORTHO LIDOCAINE (PF) 10 MG/ML (1 %) INJECT* 09/13/2024 09/13/2024 Route: Inj-ORTHO Medications Discontinued During This Encounter Prescriptions - cyclobenzaprine (FLEXERIL) 10 mg tablet (Discontinued) Reported on 10/31/2023 Encounter Status:Closed by SRAVANI ALLEN on 09/13/[address] [facility] Large Joint Arthro/Inj: L kn ee jointon 09-13-2024 Sravani Allen PA-C 09/13/2024 8:38 AM Large Joint Arthro/Inj: L knee joint 09/13/2024 8:37 AM The procedure site was prepped in the usual sterile fashion. Site: L knee joint Aspirate: 45 mL clear and serous Medications: 12 mg betamethasone acetate-betamethasone sodium phosphate 6 mg/mL Anesthetics: 3 mL lidocaine (PF) 10 mg/mL (1 %) Outcome: Tolerated well, no immediate complications Post-injection instructions were reviewed with the patient and the patient voiced understanding of these instructions. Informed Consent Consent Obtained: Verbal [place] Protocol A moment to CARE was completed. SIGN IN Personnel directly involved with the procedure wore the appropriate PPE. Special Equipment: N/A Patient/Surrogate Stated/Verified: Patient name, Date of , Relevant allergies and Intended procedure TIME OUT Relevant labs, photos, and/or imaging studies have been reviewed. Consent documented and matches the intended procedure. Correct side/site marked and visible. Medications required for procedure verified. No fire risk assessment and interventions applicable. No implant(s) inserted. SIGN OUT No specimen collected. [facility] HNO ID: [id number] Author: BERNARDO CRENSHAW RT(R) Service: Radiology Author Type: Technologist Type: Allied Health Filed: 07/22/2024 05:09 Note Text: Radiology Service Progress Note DATE OF SERVICE: July 22, 2024 TIME: 5:09 AM PATIENT IDENTITY VERIFICATION COMPLETED USING TWO (2) STANDARD IDENTIFIERS: Name and Date of confirmed by patient verbally and Name and Date of confirmed by identification band. FALL SCREENING: Has the patient had 2 falls in the last year or 1 fall with injury or currently using an Ambulatory Assistive Device (Walker, Cane, Wheelchair, Crutches, etc.)? Emergency Room Patient: Screened in ED PATIENT GENDER DATA: Assigned male at PATIENT RELEVANT IMPLANT DATA REVIEWED: Not Applicable PATIENT PRESENTS WITH AN IMPLANTABLE OR ATTACHED ELEMENTARY ASSISTANT PRINCIPAL: No ALLERGIES: Reviewed and unchanged CONTRAST ALLERGY: NO. EXAM: CT -CONTRAST INDUCED NEPHROPATHY RISK FACTORS: Patient age > 60 years CREATININE: Creatinine Date Value Ref Range Status 07/22/2024 0.87 0.73 - 1.22 mg/dL Final 03/18/2023 0.90 0.73 - 1.22 mg/dL Final 01/22/2018 0.93 0.73 - 1.22 mg/dL Final Estimated Glomerular Filtration Rate Date Value Ref Range Status 07/22/2024 98 >=60 mL/min/1.73m? Final Comment: Estimated Glomerular Filtration Rate (eGFR) is calculated using the 2020 CKD-EPI creatinine equation. This equation utilizes serum creatinine, sex, and age as parameters. The creatinine assay has traceable calibration to isotope dilution-mass spectrometry. Refer to KDIGO guidelines for clinical interpretation. In patients with unstable renal function, e.g. those with acute kidney injury, the eGFR may not accurately reflect actual GFR. eGFR- Date Value Ref Range Status 01/22/2018 >60 Final P.O.C.T. RESULTS: POC done: Yes, See Lab Tab July 22, 2024 TREATMENT: N/A PERIPHERAL IV DATA: Inpatient - refer to LDA documentation RADIOLOGY DEPARTMENT: CT; Exam(s) Completed: PE Study SIGNATURE: RT Ilsa(R) PATIENT NAME: Grey Alonzo DATE: July 22, 2024 TIME: 5:09 AM Normal [facility] CBC W Auto Differential pane l (Bld)on 07-22-2024 Basophils (Bld) [#/Vol] 10*3/uL Normal <0.11 [facility] Comment on above: Order Comment: Noe sanders Type: BLOOD SPECIMEN Ordering Facility: [facility] Address: [address] [place] [address] Performed By: #### L [id number], 22927-9, 95431-5 #### [facility] CLIA [id number] [address] [place] Basophils/100 WBC (Bld) 0.2 % Normal [facility] Comment on above: Order Comment: Noe sanders Type: BLOOD SPECIMEN Ordering Facility: [facility] Address: [address] [place] [address] Performed By: #### L [id number], 01778-9, 40309-5 #### [facility] CLIA [id number] [address] [place] [address] [place] Differential cell count method Nom (Bld) Auto Normal [facility] Comment on above: Order Comment: Speci men Type: BLOOD SPECIMEN Ordering Facility: [facility] Address: [address] [place] [address] Performed By: #### L [id number], 39821-3, 19474-0 #### [facility] CLIA [id number] [address] [place] [address] [place] Eosinophils (Bld) [#/Vol] 0.10 10*3/uL Normal <0.46 [facility] Comment on above: Order Comment: Speci men Type: BLOOD SPECIMEN Ordering Facility: [facility] Address: [address] [place] [address] Performed By: #### L [id number], 64476-9, 76052-0 #### [facility] CLIA [id number] [address] Eosinophils/100 WBC (Bld) 1.1 % Normal [facility] Comment on above: Order Comment: Speci men Type: BLOOD SPECIMEN Ordering Facility: [facility] Address: [address] [place] [address] Performed By: #### L [id number], 22584-1, 57854-4 #### [facility] CLIA [id number] [address] [place] Erythrocyte distribution width (RBC) [Ratio] 13.2 % Normal 11.5-15.0 [facility] Comment on above: Order Comment: Speci men Type: BLOOD SPECIMEN Ordering Facility: [facility] Address: [address] [place] [address] Performed By: #### L [id number], 54793-7, 52253-9 #### [facility] CLIA [id number] [address] [place] Hematocrit (Bld) [Volume fraction] 40.6 % Normal 39.0-51.0 [facility] Comment on above: Order Comment: Speci men Type: BLOOD SPECIMEN Ordering Facility: [facility] Address: [address] [place] [address] Performed By: #### L [id number], 14775-5, 20789-5 #### [facility] CLIA [id number] [address] [place] [address] [place] Hemoglobin (Bld) [Mass/Vol] 13.6 g/dL Normal 13.0-17.0 [facility] Comment on above: Order Comment: Speci men Type: BLOOD SPECIMEN Ordering Facility: [facility] Address: [address] [place] [address] Performed By: #### L [id number], 70004-1, 52532-4 #### [facility] CLIA [id number] [address] [place] [address] [place] Immature granulocytes (Bld) [#/Vol] 0.03 10*3/uL Normal <0.10 [facility] Comment on above: Order Comment: Speci men Type: BLOOD SPECIMEN Ordering Facility: [facility] Address: [address] [place] [address] Performed By: #### L [id number], 01220-3, 38842-7 #### [facility] CLIA [id number] [address] [place] Immature granulocytes/100 WBC (Bld) 0.3 % Normal [facility] Comment on above: Order Comment: Speci men Type: BLOOD SPECIMEN Ordering Facility: [facility] Address: [address] [place] [address] Performed By: #### L [id number], 90505-5, 97896-9 #### [facility] CLIA [id number] [address] [place] [address] [place] Lymphocytes (Bld) [#/Vol] 1.67 10*3/uL Normal 1.00-4.00 [facility] Comment on above: Order Comment: Speci men Type: BLOOD SPECIMEN Ordering Facility: [facility] Address: [address] [place] [address] Performed By: #### L [id number], 32514-1, 30634-9 #### [facility] CLIA [id number] [address] [place] Lymphocytes/100 WBC (Bld) 18.4 % Normal [facility] Comment on above: Order Comment: Speci men Type: BLOOD SPECIMEN Ordering Facility: [facility] Address: [address] [place] [address] Performed By: #### L [id number], 98853-7, 38039-6 #### [facility] CLIA [id number] [address] [place] MCH (RBC) [Entitic mass] 32.7 pg Normal 26.0-34.0 [facility] Comment on above: Order Comment: Speci men Type: BLOOD SPECIMEN Ordering Facility: [facility] Address: [address] [place] [address] Performed By: #### L [id number], 74259-4, 91107-2 #### [facility] CLIA [id number] [address] MCHC (RBC) [Mass/Vol] 33.5 g/dL Normal 30.5-36.0 [facility] Comment on above: Order Comment: Speci men Type: BLOOD SPECIMEN Ordering Facility: [facility] Address: [address] [place] [address] Performed By: #### L [id number], 39588-8, 76129-3 #### [facility] CLIA [id number] [address] OF [facility] MCV (RBC) [Entitic vol] 97.6 fL Normal 80.0-100.0 [facility] Comment on above: Order Comment: Speci men Type: BLOOD SPECIMEN Ordering Facility: [facility] Address: [address] [place] [address] Performed By: #### L [id number], 74135-9, 13006-0 #### [facility] CLIA [id number] [address] Monocytes (Bld) [#/Vol] 1.40 10*3/uL High <0.87 [facility] Comment on above: Order Comment: Speci men Type: BLOOD SPECIMEN Ordering Facility: [facility] Address: [address] [place] [address] Performed By: #### L [id number], 40990-8, 75482-2 #### [facility] CLIA [id number] [address] [place] [address] [place] Monocytes/100 WBC (Bld) 15.4 % Normal [facility] Comment on above: Order Comment: Speci men Type: BLOOD SPECIMEN Ordering Facility: [facility] Address: [address] [place] [address] Performed By: #### L [id number], 48964-7, 60709-4 #### [facility] CLIA [id number] [address] [place] [address] [place] Neutrophils (Bld) [#/Vol] 5.88 10*3/uL Normal 1.45-7.50 [facility] Comment on above: Order Comment: Speci men Type: BLOOD SPECIMEN Ordering Facility: [facility] Address: [address] [place] [address] Performed By: #### L [id number], 32422-1, 29282-1 #### [facility] CLIA [id number] [address] [place] [address] [place] Neutrophils/100 WBC (Bld) 64.6 % Normal [facility] Comment on above: Order Comment: Speci men Type: BLOOD SPECIMEN Ordering Facility: [facility] Address: [address] [place] [address] Performed By: #### L [id number], 18924-4, 17887-5 #### [facility] CLIA [id number] [address] [place] [address] [place] Nucleated RBC (Bld) [#/Vol] 10*3/uL Normal <0.01 [facility] Comment on above: Order Comment: Speci men Type: BLOOD SPECIMEN Ordering Facility: [facility] Address: [address] [place] [address] Performed By: #### L [id number], 63208-8, 54009-6 #### [facility] CLIA [id number] [address] [place] [address] [place] Nucleated RBC/100 WBC (Bld) [Ratio] 0.0 /100 WBC Normal [facility] Comment on above: Order Comment: Speci men Type: BLOOD SPECIMEN Ordering Facility: [facility] Address: [address] [place] [address] Performed By: #### L [id number], 54238-5, 80235-8 #### [facility] CLIA [id number] [address] [place] [address] [place] Platelet mean volume (Bld) [Entitic vol] 9.7 fL Normal 9.0-12.7 [facility] Comment on above: Order Comment: Speci men Type: BLOOD SPECIMEN Ordering Facility: [facility] Address: [address] [place] [address] Performed By: #### L [id number], 33459-6, 88408-0 #### [facility] CLIA [id number] [address] [place] [address] [place] Platelets (Bld) [#/Vol] 217 10*3/uL Normal 150-400 [facility] Comment on above: Order Comment: Speci men Type: BLOOD SPECIMEN Ordering Facility: [facility] Address: [address] [place] [address] Performed By: #### L [id number], 60485-0, 33479-1 #### [facility] CLIA [id number] [address] [place] [address] [place] RBC (Bld) [#/Vol] 4.16 10*6/uL Low 4.20-6.[address] [facility] Comment on above: Order Comment: Speci men Type: BLOOD SPECIMEN Ordering Facility: [facility] Address: [address] [place] [address] Performed By: #### L [id number], 99927-2, 02705-9 #### [facility] CLIA [id number] [address] [place] WBC (Bld) [#/Vol] 9.10 10*3/uL Normal 3.70-11.[address] [facility] Comment on above: Order Comment: Speci men Type: BLOOD SPECIMEN Ordering Facility: [facility] Address: [address] [place], [place] [address] Performed By: #### L [id number], 47450-5, 96358-9 #### [facility] CLIA [id number] [address] [place] [address] [facility] CTA CHEST (NON GATED) W IVCO N PEon 07-22-2024 CTA CHEST (NON GATED) W IVCON PE * * *Final Report* * * DATE OF EXAM: Jul 22 2024 5:11AM [facility] [place] - CTA CHEST (NON GATED) W IVCON PE / PROCEDURE REASON: Pulmonary embolism (PE) suspected, high prob * * * * Physician Interpretation * * * * EXAMINATION: CHEST CT WITH CONTRAST (PULMONARY EMBOLISM PROTOCOL) CLINICAL HISTORY: Shortness of breath, weakness. Technique: Spiral CT acquisition of the chest from the thoracic inlet to the upper abdomen following IV contrast. Axial 1 and 3 mm thick slices plus coronal and sagittal reformatted images. MQ: CTCP_5 Contrast: 80 mL Omnipaque [address] Radiation dose: Integrated Dose-length product (DLP) for this visit = 833.67 mGy*cm CT Dose Reduction Employed: Automated exposure control(AEC) and iterative recon Comparison: No relevant prior studies available. RESULT: Limitations: None. Evaluation for thromboembolic disease: No appreciable pulmonary emboli. Lines, tubes, and devices: None. Lung parenchyma, pleura and airways: Asymmetric elevation of the LEFT hemidiaphragm with trivial lingular and LEFT lower lobe atelectasis. Mediastinum and imaged lower neck: Mild coronary artery calcifications. Bones and soft tissues: Chronic anterior LEFT fourth and fifth rib fractures. Mild degenerative changes of the thoracic spine. Upper abdomen: Unremarkable. Localizer images: No significant findings. IMPRESSION: 1. Negative for pulmonary embolism. 2. Asymmetric elevation of the LEFT hemidiaphragm with minimal LEFT basilar atelectasis. Retail Customer Service Specialist: PSCB Transcribe Date/Time: Jul 22 2024 5:20A Dictated by : TYLOR MARCELINO MD This examination was interpreted and the report reviewed and electronically signed by: TYLOR MARCELINO MD on Jul 22 2024 5:38AM EST [id number] Normal [facility] Comprehensive metabolic 2000 panelon 07-22-2024 Albumin [Mass/Vol] 3.8 g/dL Low 3.9-4.9 [facility] Comment on above: Order Comment: Speci men Type: BLOOD SPECIMEN Ordering Facility: [facility] Address: [address] [place] [address] Performed By: #### L [id number], 61653-5, 58452-9 #### [facility] CLIA [id number] [address] [place] ALP [Catalytic activity/Vol] 75 U/L Normal 38-113 [facility] Comment on above: Order Comment: Speci men Type: BLOOD SPECIMEN Ordering Facility: [facility] Address: [address] [place] [address] Performed By: #### L [id number], 20102-0, 59083-5 #### [facility] CLIA [id number] [address] [place] [address] [place] ALT [Catalytic activity/Vol] 40 U/L Normal 10-54 [facility] Comment on above: Order Comment: Speci men Type: BLOOD SPECIMEN Ordering Facility: [facility] Address: [address] [place] [address] Performed By: #### L [id number], 63475-5, 67334-4 #### [facility] CLIA [id number] [address] [place] [address] [place] Anion gap [Moles/Vol] 8 mmol/L Normal 8-15 [facility] Comment on above: Order Comment: Speci men Type: BLOOD SPECIMEN Ordering Facility: [facility] Address: [address] [place] [address] Performed By: #### L [id number], 86813-3, 69079-0 #### [facility] CLIA [id number] [address] [place] [address] [place] AST [Catalytic activity/Vol] 50 U/L High 14-40 [facility] Comment on above: Order Comment: Speci men Type: BLOOD SPECIMEN Ordering Facility: [facility] Address: [address] [place] [address] Performed By: #### L [id number], 38296-4, 86994-2 #### [facility] CLIA [id number] [address] [place] [address] [place] Bilirubin [Mass/Vol] 0.5 mg/dL Normal 0.2-1.3 [facility] Comment on above: Order Comment: Speci men Type: BLOOD SPECIMEN Ordering Facility: [facility] Address: [address] [place] [address] Performed By: #### L [id number], 59534-2, 20699-1 #### [facility] CLIA [id number] [address] [place] [address] [place] Calcium [Mass/Vol] 9.0 mg/dL Normal 8.5-10.2 [facility] Comment on above: Order Comment: Speci men Type: BLOOD SPECIMEN Ordering Facility: [facility] Address: [address] [place] [address] Performed By: #### L [id number], 03669-2, 35989-7 #### [facility] CLIA [id number] [address] [place] [address] [place] Chloride [Moles/Vol] 105 mmol/L Normal 98-107 [facility] Comment on above: Order Comment: Speci men Type: BLOOD SPECIMEN Ordering Facility: [facility] Address: [address] [place] [address] Performed By: #### L [id number], 85537-9, 38238-3 #### [facility] CLIA [id number] [address] [place] [address] [place] CO2 [Moles/Vol] 25 mmol/L Normal 22-30 [facility] Comment on above: Order Comment: Speci men Type: BLOOD SPECIMEN Ordering Facility: [facility] Address: [address] [place] [address] Performed By: #### L [id number], 58999-6, 86445-1 #### [facility] CLIA [id number] [address] [place] [address] [place] Creatinine [Mass/Vol] 0.87 mg/dL Normal 0.73-1.22 [facility] Comment on above: Order Comment: Speci men Type: BLOOD SPECIMEN Ordering Facility: [facility] Address: [address] [place] [address] Performed By: #### L [id number], 10536-6, 70207-2 #### [facility] CLIA [id number] [address] Creatinine and Glomerular filtration rate.predicted panel (S/P/Bld) 98 mL/min/1.73m??? Normal >=60 [facility] Comment on above: Order Comment: Noe sanders Type: BLOOD SPECIMEN Ordering Facility: [facility] Address: [address] [place] [address] Result Comment: Kadi mated Glomerular Filtration Rate (eGFR) is calculated using the 2020 CKD-EPI creatinine equation. This equation utilizes serum creatinine, sex, and age as parameters. The creatinine assay has traceable calibration to isotope dilution-mass spectrometry. Refer to KDIGO guidelines for clinical interpretation. In patients with unstable renal function, e.g. those with acute kidney injury, the eGFR may not accurately reflect actual GFR. Performed By: #### L [id number], 44438-1, 27813-0 #### [facility] CLIA [id number] [address] Glucose [Mass/Vol] 114 mg/dL High 74-99 [facility] Comment on above: Order Comment: Noe sanders Type: BLOOD SPECIMEN Ordering Facility: [facility] Address: [address] [place] [address] Result Comment: The [place] Diabetes Association (ADA) provides guidance for cutoff values for fasting glucose and random glucose. The ADA defines fasting as no caloric intake for at least 8 hours. Fasting plasma glucose results between 100 to 125 mg/dL indicate increased risk for diabetes (prediabetes). Fasting plasma glucose results greater than or equal to 126 mg/dL meet the criteria for diagnosis of diabetes. In the absence of unequivocal hyperglycemia, results should be confirmed by repeat testing. In a patient with classic symptoms of hyperglycemia or hyperglycemic crisis, random plasma glucose results greater than or equal to 200 mg/dL meet the criteria for diagnosis of diabetes. Reference: Standards of Medical Care in Diabetes 2016, [place] [employer] Association. Diabetes Care. 2016.39(Suppl 1). Performed By: #### L [id number], 23867-9, 34487-6 #### [facility] CLIA [id number] [address] [place] Potassium [Moles/Vol] 3.5 mmol/L Low 3.7-5.1 [facility] Comment on above: Order Comment: Speci men Type: BLOOD SPECIMEN Ordering Facility: [facility] Address: [address] [place] [address] Performed By: #### L [id number], 99089-5, 28815-9 #### [facility] CLIA [id number] [address] [place] [address] [place] Protein [Mass/Vol] 6.5 g/dL Normal 6.3-8.0 [facility] Comment on above: Order Comment: Speci men Type: BLOOD SPECIMEN Ordering Facility: [facility] Address: [address] [place] [address] Performed By: #### L [id number], 30368-9, 08753-1 #### [facility] CLIA [id number] [address] [place] [facility] Sodium [Moles/Vol] 138 mmol/L Normal 136-144 [facility] Comment on above: Order Comment: Speci men Type: BLOOD SPECIMEN Ordering Facility: [facility] Address: [address] [place] [address] Performed By: #### L [id number], 29488-2, 42034-0 #### [facility] CLIA [id number] [address] [place] Urea nitrogen [Mass/Vol] 27 mg/dL High 9-24 [facility] Comment on above: Order Comment: Speci men Type: BLOOD SPECIMEN Ordering Facility: [facility] Address: [address] [place] [address] Performed By: #### L [id number], 04096-6, 54284-4 #### [facility] CLIA [id number] [address] [place] D dimer FEU PPP-mCncon 07-22 Fibrin D-dimer FEU (PPP) [Mass/Vol] 1460 ng/mL FEU High <500 [facility] Comment on above: Order Comment: Speci men Type: BLOOD SPECIMEN Ordering Facility: [facility] Address: [address] [place] [address] [place] [address] Performed By: #### 4 8065-7 #### [facility] CLIA [id number] [address] [place] [address] [place] ED NOTEon 07-22-2024 ED NOTE HNO ID: [id number] Author: FARRAH BOUCHER RN Service: ? Author Type: Registered Nurse Type: ED Notes Filed: 07/22/2024 06:13 Note Text: .Patient discharged, given verbal and written discharge instructions. Patient verbalized understanding. Nurse discussed medication that were prescribed and follow up appointments and signs/symptoms of worsening conditions, and reasons why to come back to the emergency department. [facility] ED PROV NOTEon 07-22-2024 ED PROV NOTE HNO ID: [id number] Author: LOU LEAL MD Service: ? Author Type: Physician Type: ED Provider Notes Filed: 07/22/2024 05:46 Note Text: ED Provider Note Patient Name: Grey Alonzo : 1960 SERVICE DATE: 07/22/24 History Patient presents with: Shortness of Breath: Patient ambulatory to triage with complaints of shortness of breath and feels like his throat is closing up and cannot get enough oxygen. Patient states at work today there was a lot of pollen in the air. 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 Hay fever Hearing deficit right ear Hypertension Neck pain Rheumatoid arthritis (HCC) PAST SURGICAL HISTORY Procedure Laterality Date KNEE SURGERY HX Left PAST SURGICAL HISTORY OF 4-12 right elbow PAST SURGICAL HISTORY OF 1997 right elbow PAST SURGICAL HISTORY OF 2014 C SPINE FAMILY HISTORY Problem Relation Age of Onset Headache Mother Hypertension Mother Alcohol/Drug Father Allergies Father pen/sulfa Diabetes Father Heart Father Thyroid Father Cancer Brother espohageal Cancer Maternal Grandfather esophageal Glaucoma Paternal Grandmother Social History Tobacco Use Smoking status: Never Smokeless tobacco: Former Quit date: 02/23/2014 Vaping Use Vaping status: Never Used Substance and Sexual Activity Alcohol use: No Drug use: No Sexual activity: Not on file Comment: Not asked ALLERGIES Allergen Reactions Meloxicam Rash Review of Systems Constitutional: Negative for chills, diaphoresis and fever. Respiratory: Positive for cough and shortness of breath. Negative for wheezing. Cardiovascular: Negative for chest pain. Physical Exam Vitals [07/22/24 0333] BP Pulse Temp Temp src Resp SpO2 Weight Height 152/86 77 36.5 ?C (97.7 ?F) Oral 18 98 % 113 kg (249 lb 1.9 oz) 1.753 m (5' 9) Physical Exam Vitals and nursing note reviewed. Constitutional: Appearance: He is well-developed. HENT: Right Ear: External ear normal. Left Ear: External ear normal. Nose: Nose normal. Eyes: General: Lids are normal. Lids are everted, no foreign bodies appreciated. Conjunctiva/sclera: Conjunctivae normal. Neck: Trachea: Trachea normal. Cardiovascular: Rate and Rhythm: Normal rate and regular rhythm. Heart sounds: Normal heart sounds. Pulmonary: Effort: Pulmonary effort is normal. Breath sounds: Normal breath sounds. Abdominal: General: Bowel sounds are normal. There is no distension. Palpations: Abdomen is soft. Musculoskeletal: General: Normal range of motion. Right shoulder: Normal. Left shoulder: Normal. Cervical back: No deformity. Thoracic back: No deformity. Right ankle: Normal. Left ankle: Normal. Skin: General: Skin is warm and dry. Neurological: Mental Status: He is alert and oriented to person, place, and time. GCS: GCS eye subscore is 4. GCS verbal subscore is 5. GCS motor subscore is 6. Cranial Nerves: No cranial nerve deficit. Sensory: No sensory deficit. Deep Tendon Reflexes: Reflexes are normal and symmetric. Psychiatric: Attention and Perception: Attention and perception normal. Diagnostic Testing ED Labs Ordered and Reviewed - No data to display Procedures ED Course / Clinical Impression Clinical Impressions as of 07/22/24 0577 SOB (shortness of breath) Bronchitis Hypertension, unspecified type MDM / Disposition / Plan 63-year-old rheumatoid hypertension comes into the ER with just kind of a cough it was kind of a phlegmy cough now its kind of a dry cough feels like his throat is closing up he feels like just has trouble breathing. No chest pain no double vision no blurry vision no other constitutional signs or symptoms nothing else makes it better or worse he is used albuterol at home usually it helps but this time it did not Physical exam Afebrile hypertensive otherwise normal Cardiac regular rate rhythm Pulmonary exam clear to auscultation no rales rhonchi or crackles good aeration Abdomen soft nontender HEENT throat is a little red but no exudate no bulging the peritonsillar pillars Differential diagnosis #1 bronchitis #2 asthma #3 ACS #4 pulmonary embolus #5 allergic rhinitis Results for orders placed or performed during the hospital encounter of 07/22/24 -COMPLETE BLOOD COUNT AND DIFFERENTIAL: Result Value Ref Range WBC 9.10 3.70 - 11.00 k (more content not included)... Normal [facility] EKGon 07-22-2024 Electrocardiogram Ventricular Rate : 7 7 BPM Atrial Rate : 77 BPM P-R Interval : 186 ms QRS Duration : 94 ms Q-T Interval : 410 ms QTC Calculation(Bazett) : 463 ms Calculated P [place] : 39 degrees Calculated R [place]ut[place] : 40 degrees Calculated T [place]ut[place] : 19 degrees NORMAL SINUS RHYTHM NORMAL ECG Confirmed by LOU LEAL MD ([id number]) on 07/22/2024 3:44:50 AM NAME : GREY ALONZO PID : [id number] : 1960 Gender : Male Race : ORD : Procedure Date : Jul 22 2024 03:35:32 Edit Date : Jul 22 2024 03:44:53 Diagnosis: NORMAL SINUS RHYTHM NORMAL ECG Confirmed by LOU LEAL MD ([id number]) on 07/22/2024 3:44:50 AM Test Reason : Location : 1 : ER ED Overread By : LOU LEAL MD Edited By : LOU LEAL MD Referred By : , Acquired by : mary [facility] Fibrin D-dimer FEU (PPP) [Yoel ss/Vol]on 07-22-2024 D DIMER AGE-RELATED CUTOFF 620 ng/mL FEU [facility] Comment on above: Order Comment: Speci men Type: BLOOD SPECIMEN Ordering Facility: [facility] Address: [address] [place], [place] [id number] Performed By: #### [id number] #### [facility] CLIA [id number] [address] HIGH SENSITIVITY TROPONIN T (INITIAL)on 07-22-2024 Troponin T.cardiac High sensitivity method [Mass/Vol] 12 ng/L High <12 [facility] Comment on above: Order Comment: Speci men Type: BLOOD SPECIMEN Ordering Facility: [facility] Address: [address] [place] [address] Performed By: #### L [id number], [id number], [id number] #### [facility] CLIA [id number] [address] HIGH SENSITIVITY TROPONIN T (SECOND)on 07-22-2024 Troponin T.cardiac High sensitivity method [Mass/Vol] 11 ng/L Normal <12 [facility] Comment on above: Order Comment: Speci men Type: BLOOD SPECIMEN Ordering Facility: [facility] Address: [address] [place] [address] Performed By: #### L [id number] #### [facility] CLIA [id number] [address] NT-proBNP [facility] 07-22 Natriuretic peptide.B prohormone N-Terminal [Mass/Vol] <36 Normal <125 [facility] Comment on above: Order Comment: Speci men Type: BLOOD SPECIMEN Ordering Facility: [facility] Address: [address] [place] [address] Performed By: #### L [id number], [id number], [id number] #### [facility] CLIA [id number] [address] OF [place] XR CHEST 1V FRONTALon 2024 XR CHEST 1V FRONTAL * * *Final Report* * * DATE OF EXAM: Jul 22 2024 4:07AM MDX [id number] - XR CHEST 1V FRONTAL / PROCEDURE REASON: Shortness of breath * * * * Physician Interpretation * * * * EXAMINATION: CHEST RADIOGRAPH (SINGLE VIEW AP OR PA) CLINICAL HISTORY: Shortness of breath MQ: XC1_5 Comparison: None RESULT: Lines, tubes, and devices: None. Lungs and pleura: Lung volumes diminished. No consolidation. No lung mass. No pleural effusion or pneumothorax. Cardiomediastinal silhouette: Cardiomediastinal silhouette accentuated by portable AP technique and low lung volumes. Other: Postsurgical changes from cervical fusion partially visualized. IMPRESSION: No acute radiographic abnormality. Retail Customer Service Specialist: MELISSA Transcribe Date/Time: Jul 22 2024 4:25A Dictated by : INÉS BOCANEGRA MD This examination was interpreted and the report reviewed and electronically signed by: INÉS BOCANEGRA MD on Jul 22 2024 4:25AM EST [id number] [facility] CNOVon 06-11-2024 CNOV Office Visit (ORMDNA ) GREY ALONZO ([id number]) 1960 M Date Time Provider Department 06/11/24 7:45 AM SRAVANI ALLEN During your visit today, we recorded the following information about you: Sravani Allen PA-C 06/11/2024 8:14 AM Signed Mr. Grey Alonzo presents today for left knee aspiration and corticosteroid injection. Today he rates his pain a 4 on a scale of 0 to 10. His last injection was 02/27/2024 and his last aspiration was 05/28/2024. Large Joint Arthro/Inj: L knee joint 06/11/2024 8:14 AM The procedure site was prepped in the usual sterile fashion. Site: L knee joint Aspirate: 38 mL clear and serous Medications: 12 mg betamethasone acetate-betamethasone sodium phosphate 6 mg/mL Anesthetics: 3 mL lidocaine (PF) 10 mg/mL (1 %) Outcome: Tolerated well, no immediate complications Post-injection instructions were reviewed with the patient and the patient voiced understanding of these instructions. Informed Consent Consent Obtained: Verbal [place] Protocol A moment to CARE was completed. SIGN IN Personnel directly involved with the procedure wore the appropriate PPE. Special Equipment: N/A Patient/Surrogate Stated/Verified: Patient name, Date of , Relevant allergies and Intended procedure TIME OUT Relevant labs, photos, and/or imaging studies have been reviewed. Consent documented and matches the intended procedure. Correct side/site marked and visible. Medications required for procedure verified. No fire risk assessment and interventions applicable. No implant(s) inserted. Sravani Allen PA-C Allergies As of Date: 06/11/2024 (No Known Allergies) Date Reviewed: 06/11/2024 Reviewed by: Sravani Allen PA-C - Fully Assessed Reason for Visit: Established Patient [175] Knee Pain [132] Injections [199] Primary Visit Diagnosis:Chronic pain of left knee [M25.562, G89.29] Other Visit Diagnosis:Pseudogout [M11.20] Order(s):Large Joint Arthro/Inj: L knee joint [NBN732] Order #: [id number] [] betamethasone acetate-betamethasone sodium phosphate 12 mg injection (CELESTONE)Disp: Rfl: [] lidocaine (PF) 10 mg/mL (1 %) 3 mL injection (XYLOCAINE)Disp: Rfl: Prescriptions as of 06/11/2024 - RINVOQ 15 mg tablet 1 tablet Orally Once a day for 30 days - metoprolol succinate ER (TOPROL XL) 50 mg 24 hr tablet TAKE 1 TABLET (50 MG) ORALLY DAILY - cyanocobalamin (VITAMIN B-12) 1,000 mcg tab 1 tab(s) orally once a day for 30 day(s) - cholecalciferol (VITAMIN D3) 400 unit tab as directed orally once a day for 30 day(s) - Ascorbic Acid 1,000 mg tablet 1 tab(s) orally once a day for 30 day(s) - cyclobenzaprine (FLEXERIL) 10 mg tablet Take 1 tablet by mouth every 8 hours as needed. - XIIDRA 5 % ophthalmic drops INSTILL 1 DROP IN BOTH EYES TWICE DAILY - HUMIRA PEN 40 mg/0.8 mL - sulfaSALAzine EC (AZULFIDINE EN) 500 mg EC tablet 2 TAB(S) ORALLY 2 TIMES A DAY 30 DAYS - methotrexate 2.5 mg tablet - folic acid 1 mg tablet - chlorthalidone (HYGROTON) 25 mg tablet Take 25 mg by mouth once daily. - lisinopril (ZESTRIL, PRINIVIL) 10 mg tablet Take 10 mg by mouth once daily. 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] 07/02/2011 Cervical radiculopathy [M54.12] 02/20/2012 Cervicalgia [M54.2] 04/15/2012 Left proximal hamstring tendon rupture [S76.312*01/21/2018 Rupture of left proximal hamstring tendon [S76.*01/21/2018 Hamstring tendon rupture [S76.319A] 01/21/2018 Essential hypertension [I10] 01/22/2018 Difficult intubation [T88.4XXA] 01/22/2018 Conjunctival laceration, right, initial encount*11/13/2018 Conjunctival cyst of right eye [H11.441] 11/18/2018 Conjunctival laceration, right, sequela [S05.31*03/20/2019 Benign skin lesion [L98.9] 07/03/2019 Punctate keratitis of both eyes [H16.143] 07/03/2019 Meibomian gland dysfunction (MGD) of upper and *07/03/2019 High risk medication use [Z79.899] 07/28/2020 Long-term use of Plaquenil [Z79.899] 07/28/2020 Rheumatoid arthritis (HCC) [M06.9] 07/28/2020 Dry eye syndrome, bilateral [H04.123] 07/28/2020 Prescriptions ordered this encounter Disp Refills Start End BETAMETHASONE ACETATE AND SODIUM JASWANT* 06/11/2024 06/11/2024 Route: Inj-ORTHO LIDOCAINE (PF) 10 MG/ML (1 %) INJECT* 06/11/2024 06/11/2024 Route: Inj-ORTHO Encounter Status:Closed by SRAVANI ALLEN on 06/11/[address] [facility] Large Joint Arthro/Inj: L kn ee jointon 06-11-2024 Sravani Allen PA-C 06/11/2024 8:14 AM Large Joint Arthro/Inj: L knee joint 06/11/2024 8:14 AM The procedure site was prepped in the usual sterile fashion. Site: L knee joint Aspirate: 38 mL clear and serous Medications: 12 mg betamethasone acetate-betamethasone sodium phosphate 6 mg/mL Anesthetics: 3 mL lidocaine (PF) 10 mg/mL (1 %) Outcome: Tolerated well, no immediate complications Post-injection instructions were reviewed with the patient and the patient voiced understanding of these instructions. Informed Consent Consent Obtained: Verbal [place] Protocol A moment to CARE was completed. SIGN IN Personnel directly involved with the procedure wore the appropriate PPE. Special Equipment: N/A Patient/Surrogate Stated/Verified: Patient name, Date of , Relevant allergies and Intended procedure TIME OUT Relevant labs, photos, and/or imaging studies have been reviewed. Consent documented and matches the intended procedure. Correct side/site marked and visible. Medications required for procedure verified. No fire risk assessment and interventions applicable. No implant(s) inserted. [facility] CNOVon 05-28-2024 CNOV Office Visit (ORMDNA ) JEFERSONGREY LOPZE ([id number]) 1960 M Date Time Provider Department 05/28/24 9:00 AM CASSANDRA SULLIVAN During your visit today, we recorded the following information about you: Cassandra Sullivan DO 05/28/2024 9:32 AM Signed Follow Up Visit Chief Complaint Grey Alonzo is a 63 year old male who presents today for follow up office visit. Patient presents with: Left Knee - Follow Up, Knee Pain History of Present Illness PAIN EVALUATION 05/24/2024 1028 Pain Level: 4 Pain Location: Knee-Left Description: Aching;Tightness Frequency: Continuous Intervention/Comfort measure: Medication;Splinting HPI: Grey Alonzo is a 63 year old male for a follow up visit left knee pain. Patient received a cortisone injection at last office visit. He states that he has noticed improvement in pain since. Still some swelling and minimal pains. Patient recently on prednisone taper, last dose was this past Friday. Pain history is noted as above. Denies calf pain, numbness, tingling, fever, chills or other constitutional symptoms. Is there any overall improvement in your condition? Yes, with injection Any new injury, since being seen last: No REVIEW OF SYMPTOMS: Patient did not have, and does not currently have, any weight loss, malaise, fever, chills, headache, chest pain, chest pressure, palpitations, cough, shortness of breath, orthopnea, paroxsymal nocturnal dyspnea, nausea, vomiting, diarrhea, constipation, melena, hematochezia, urinary difficulties, prolonged bleeding, easily bruising, heat or cold intolerance, new onset joint pain or swelling, new onset extremity weakness or numbness, new onset auditory or visual disturbances, lightheadedness, dizziness, partial loss of consciousness or full loss of consciousness. Current Outpatient Medications Medication Sig RINVOQ 15 mg tablet 1 tablet Orally Once a day for 30 days metoprolol succinate ER (TOPROL XL) 50 mg 24 hr tablet TAKE 1 TABLET (50 MG) ORALLY DAILY cyanocobalamin (VITAMIN B-12) 1,000 mcg tab 1 tab(s) orally once a day for 30 day(s) cholecalciferol (VITAMIN D3) 400 unit tab as directed orally once a day for 30 day(s) Ascorbic Acid 1,000 mg tablet 1 tab(s) orally once a day for 30 day(s) XIIDRA 5 % ophthalmic drops INSTILL 1 DROP IN BOTH EYES TWICE DAILY HUMIRA PEN 40 mg/0.8 mL sulfaSALAzine EC (AZULFIDINE EN) 500 mg EC tablet 2 TAB(S) ORALLY 2 TIMES A DAY 30 DAYS methotrexate 2.5 mg tablet folic acid 1 mg tablet chlorthalidone (HYGROTON) 25 mg tablet Take 25 mg by mouth once daily. cyclobenzaprine (FLEXERIL) 10 mg tablet Take 1 tablet by mouth every 8 hours as needed. (Patient not taking: Reported on 10/31/2023) lisinopril (ZESTRIL, PRINIVIL) 10 mg tablet Take 10 mg by mouth once daily. (Patient not taking: Reported on 10/31/2023) No current facility-administered medications for this visit. Physical Exam Vitals: There were no vitals taken for this visit. Psych: Pleasant, good affect and mood General Appearance: Well appearing, alert, in no acute distress, well-hydrated, well nourished.. Skin: Skin color, texture, turgor normal, no suspicious rashes or lesions. Peripheral Pulses: Normal. Neurologic: Gait normal. Reflexes normal and symmetric. Sensation grossly intact.. Lymph Nodes: No cervical lymphadenopathy, No supraclavicular lymphadenopathy, No axillary lymphadenopathy., and No inguinal lymphadenopathy.. Respiratory: No recent pulmonary infection, hemoptysis, chronic cough, or shortness of breath at rest Rheumatologic: Joint deformities: left knee pain Ortho Exam Assessment and Plan Radiographs: No imaging to review. Impression: Encounter Diagnosis ICD-10-CM 1. Chronic pain of left knee M25.562 G89.29 2. Pseudogout M11.20 Today, in detail, through a thorough evaluation, we discussed possible etiologies of pain and our plans for further diagnostic and therapeutic interventions. We discussed strategies for decreasing pain and improving strength, stability and motion. Patient's questions were answered in detailed. Patient verbalizes understanding and agrees with the treatment plan as discussed. Left knee aspiration today only Discussed recent illness/bronchitis/ etc and feeling better but diff to work outside in cold weather as affects lungs, etc Follow up in 2-3 weeks for left knee aspiration/steroid injection with Caryn LEARY as just recently finished oral steroids, not horrendous knee pain today and mostly swelling so aspiration and defer injection for now Patient aware and in agreement of plan. All questions answered. Large Joint Arthro/Inj: L knee joint 05/28/2024 9:30 AM The procedure site was prepped in the usual sterile fashion. Site: L knee joint Aspirate: 35 mL clear and yellow Outcome: Tolerated well, no immediate complications Post-injec (more content not included)... Normal [facility] Large Joint Arthro/Inj: L kn ee jointon 05-28-2024 Cassandra Sullivan ie, DO 05/28/2024 9:32 AM Large Joint Arthro/Inj: L knee joint 05/28/2024 9:30 AM The procedure site was prepped in the usual sterile fashion. Site: L knee joint Aspirate: 35 mL clear and yellow Outcome: Tolerated well, no immediate complications Post-injection instructions were reviewed with the patient and the patient voiced understanding of these instructions. Informed Consent Consent Obtained: Verbal [place] Protocol A moment to CARE was completed. SIGN IN Personnel directly involved with the procedure wore the appropriate PPE. Special Equipment: Yes Patient/Surrogate Stated/Verified: Patient name, Date of , Relevant allergies and Intended procedure TIME OUT Relevant labs, photos, and/or imaging studies have been reviewed. Intended patient and procedure match the source document(s). Consent documented and matches the intended procedure. Correct side/site marked and visible. Medications required for procedure verified. Fire risk assessed and interventions discussed. No implant(s) inserted. SIGN OUT All instruments, equipment, possible retained foreign bodies accounted for. [facility] POCT rapid strep A manually resultedon 05-20-2024 Interpretation and review of laboratory results Normal [facility] Work Phone: POC Rapid Strep Negative Negative [facility] Work Phone: [facility] Work Phone: CNOVon 02-27-2024 CNOV Office Visit (ORMDNA ) WINGGREY Isela ([id number]) 1960 M Date Time Provider Department 02/27/24 9:30 AM CASSANDRA SULLIVAN During your visit today, we recorded the following information about you: Cassandra Sullivan DO 02/27/2024 11:25 AM Signed Follow Up Visit Chief Complaint Grey Alonzo is a 63 year old male who presents today for follow up office visit. Patient presents with: Left Knee - Follow Up, Knee Pain History of Present Illness PAIN EVALUATION 02/27/2024 0933 Pain Level: 5 Pain Location: Knee-Left Description: Sore;Aching;Throbbing Duration Amount of Time: 8 Duration Units: Months Frequency: Continuous Intervention/Comfort measure: -- cortisone injection HPI: Grey Alonzo is a 63 year old male for a follow up visit left knee pain. Patient had a cortisone injection in October that gave about 3-4 weeks of relief. He continues to have moderate constant pains in the knee. He is taking Aleve for pain. Pain history is noted as above. Denies calf pain, numbness, tingling, fever, chills or other constitutional symptoms. Is there any overall improvement in your condition? No Any new injury, since being seen last: No REVIEW OF SYMPTOMS: Patient did not have, and does not currently have, any weight loss, malaise, fever, chills, headache, chest pain, chest pressure, palpitations, cough, shortness of breath, orthopnea, paroxsymal nocturnal dyspnea, nausea, vomiting, diarrhea, constipation, melena, hematochezia, urinary difficulties, prolonged bleeding, easily bruising, heat or cold intolerance, new onset joint pain or swelling, new onset extremity weakness or numbness, new onset auditory or visual disturbances, lightheadedness, dizziness, partial loss of consciousness or full loss of consciousness. Current Outpatient Medications Medication Sig RINVOQ 15 mg tablet 1 tablet Orally Once a day for 30 days metoprolol succinate ER (TOPROL XL) 50 mg 24 hr tablet TAKE 1 TABLET (50 MG) ORALLY DAILY cyanocobalamin (VITAMIN B-12) 1,000 mcg tab 1 tab(s) orally once a day for 30 day(s) cholecalciferol (VITAMIN D3) 400 unit tab as directed orally once a day for 30 day(s) Ascorbic Acid 1,000 mg tablet 1 tab(s) orally once a day for 30 day(s) XIIDRA 5 % ophthalmic drops INSTILL 1 DROP IN BOTH EYES TWICE DAILY HUMIRA PEN 40 mg/0.8 mL sulfaSALAzine EC (AZULFIDINE EN) 500 mg EC tablet 2 TAB(S) ORALLY 2 TIMES A DAY 30 DAYS methotrexate 2.5 mg tablet folic acid 1 mg tablet chlorthalidone (HYGROTON) 25 mg tablet Take 25 mg by mouth once daily. cyclobenzaprine (FLEXERIL) 10 mg tablet Take 1 tablet by mouth every 8 hours as needed. (Patient not taking: Reported on 10/31/2023) lisinopril (ZESTRIL, PRINIVIL) 10 mg tablet Take 10 mg by mouth once daily. (Patient not taking: Reported on 10/31/2023) No current facility-administered medications for this visit. Physical Exam Vitals: There were no vitals taken for this visit. Psych: Pleasant, good affect and mood General Appearance: Well appearing, alert, in no acute distress, well-hydrated, well nourished.. Skin: Skin color, texture, turgor normal, no suspicious rashes or lesions. Peripheral Pulses: Normal. Neurologic: Gait normal. Reflexes normal and symmetric. Sensation grossly intact.. Lymph Nodes: No cervical lymphadenopathy, No supraclavicular lymphadenopathy, No axillary lymphadenopathy., and No inguinal lymphadenopathy.. Respiratory: No recent pulmonary infection, hemoptysis, chronic cough, or shortness of breath at rest Rheumatologic: Joint deformities: left knee pain Right Knee Exam Right knee exam is normal. Muscle Strength The patient has normal right knee strength. Tenderness The patient is experiencing no tenderness. Range of Motion Extension: normal Flexion: normal Tests Ted: Anterior - negative Posterior - negative Drawer: Anterior - negative Posterior - negative Other Erythema: absent Sensation: normal Pulse: present Swelling: none Left Knee Exam Tenderness The patient is experiencing tenderness in the medial joint line and lateral joint line. Range of Motion Extension: normal Flexion: normal Tests Ted: Anterior - negative Posterior - negative Drawer: Anterior - negative Posterior - negative Other Erythema: absent Sensation: normal Pulse: present Swelling: moderate Comments: Neg homans bilaterally Assessment and Plan Radiographs: I have independently reviewed films and my findings are the same. and I have reviewed the images with the patient and family. Impression: Encounter Diagnosis ICD-10-CM 1. Chronic pain of left knee M25.562 G89.29 2. Pseudogout M11.20 Today, in detail, through a thorough evaluation, we discussed possible etiologies of pain and our plans for further diagnostic and therapeutic interventions. We discusse (more content not included)... Normal [facility] Large Joint Arthro/Inj: L kn ee jointon 02-27-2024 Cassandra Sullivan, DO 02/27/2024 11:25 AM Large Joint Arthro/Inj: L knee joint Informed Consent Consent Obtained: Verbal [place] Protocol A moment to CARE was completed. SIGN IN Personnel directly involved with the procedure wore the appropriate PPE. Special Equipment: Yes Patient/Surrogate Stated/Verified: Patient name, Date of , Relevant allergies and Intended procedure TIME OUT Intended patient and procedure match the source document(s). Consent documented and matches the intended procedure. Relevant labs, photos, and/or imaging studies have been reviewed. Correct side/site marked and visible. Medications required for procedure verified. Fire risk assessed and interventions discussed. No implant(s) inserted. 02/27/2024 11:24 AM The procedure site was prepped in the usual sterile fashion. Site: L knee joint Aspirate: 40 mL clear and yellow Medications: 80 mg triamcinolone acetonide 40 mg/mL Anesthetics: 8 mL BUPivacaine (PF) 0.5 % (5 mg/mL) Outcome: Tolerated well, no immediate complications Post-injection instructions were reviewed with the patient and the patient voiced understanding of these instructions. SIGN OUT All instruments, equipment, possible retained foreign bodies accounted for. [facility] XR Knee - left 4 Viewson IMPRESSION: Advanced osteoarthrosis with chondrocalcinosis and joint effusion. Retail Customer Service Specialist: MELISSA Transcribe Date/Time: Nov 02 2023 10:03A Dictated by : TENNILLE GIRON MD This examination was interpreted and the report reviewed and electronically signed by: TENNILLE GIRON MD on Nov 02 2023 10:06AM [facility] * * *Final Report* * * DATE OF EXAM: Oct 31 2023 7:47AM MARCIA 5202 - XR KNEE 4V AP/PA BOTH+LAT/KERWIN LT / PROCEDURE REASON: M25.562-Left knee pain, unspecified chronicity * * * * Physician Interpretation * * * * PROCEDURE: Left knee INDICATION: Left knee pain, unspecified chronicity .left knee pain TECHNIQUE: XR KNEE 4V AP/PA BOTH+LAT/KERWIN LT COMPARISON: None FINDINGS: Significant medial joint compartment narrowing with tricompartment spur formation, lateral tibial translation chondrocalcinosis. No fracture. Moderate joint effusion. Mild degenerative changes in the right knee. [facility] Provider, Agueda Sanchez - 11/02/2023 * * *Final Report* * * DATE OF EXAM: Oct 31 2023 7:47AM MARCIA 5202 - XR KNEE 4V AP/PA BOTH+LAT/KERWIN LT / PROCEDURE REASON: M25.562-Left knee pain, unspecified chronicity * * * * Physician Interpretation * * * * PROCEDURE: Left knee INDICATION: Left knee pain, unspecified chronicity .left knee pain TECHNIQUE: XR KNEE 4V AP/PA BOTH+LAT/KERWIN LT COMPARISON: None FINDINGS: Significant medial joint compartment narrowing with tricompartment spur formation, lateral tibial translation chondrocalcinosis. No fracture. Moderate joint effusion. Mild degenerative changes in the right knee. IMPRESSION IMPRESSION: Advanced osteoarthrosis with chondrocalcinosis and joint effusion. Retail Customer Service Specialist: PSCB Transcribe Date/Time: Nov 02 2023 10:03A Dictated by : TENNILLE GIRON MD This examination was interpreted and the report reviewed and electronically signed by: TENNILLE GIRON MD on Nov 02 2023 10:06AM EST [facility] XR Knee - left 4 ViewsOrdere d By: Ccjc Provider on 11-02-2023 [facility] CNOVon 10-31-2023 CNOV Office Visit (ORMDNA ) GREY ALONZO ([id number]) 1960 M Date Time Provider Department 10/31/23 8:00 AM CASSANDRA SULLIVAN During your visit today, we recorded the following information about you: Cassandra Sullivan DO 10/31/2023 8:42 AM Signed Large Joint Arthro/Inj: L knee joint Informed Consent Consent Obtained: Verbal [place] Protocol A moment to CARE was completed. SIGN IN Sign in communication not applicable due to emergent procedure. Personnel directly involved with the procedure wore the appropriate PPE. Special Equipment: N/A Patient/Surrogate Stated/Verified: Patient name, Date of , Relevant allergies and Intended procedure TIME OUT Intended patient and procedure match the source document(s). Relevant labs, photos, and/or imaging studies have been reviewed. Correct side/site marked and visible. Medications required for procedure verified. No fire risk assessment and interventions applicable. No implant(s) inserted. 10/31/2023 8:21 AM The procedure site was prepped in the usual sterile fashion. Site: L knee joint Medications: 80 mg triamcinolone acetonide 40 mg/mL Anesthetics: 8 mL BUPivacaine (PF) 0.5 % (5 mg/mL) Outcome: Tolerated well, no immediate complications Post-injection instructions were reviewed with the patient and the patient voiced understanding of these instructions. SIGN OUT All instruments, equipment, possible retained foreign bodies accounted for. Reason for Visit/Chief Complaint Grey Alonzo is a 63 year old male who presents today for a new evaluation of following complaint: Patient presents with: Left Knee - New, Knee Pain, Swelling History of Present Illness: PAIN EVALUATION 10/30/2023 1800 Pain Level: 7 Pain Location: Knee-Left Description: Stiffness;Throbbing;Tightness Duration Units: Months Frequency: Continuous Intervention/Comfort measure: Medication;Cold;Heat HPI: Grey Alonzo is a 63 year old male presenting today with left knee pain. Patient states that he has been having knee pain for about 7-8 weeks now. He states he just woke up one morning and was experiencing medial knee pain. He does complain of some pain on the lateral aspect of his knee too. Pain history is noted as above. Denies calf pain, numbness, tingling, fever, chills or other constitutional symptoms. Previous Treatments: Ice: Yes Heat: Yes Brace: No NSAIDs: Yes, Aleve Injections: No Surgeries: No Physical Therapy: No Review of Systems: Patient did not have, and does not currently have, any weight loss, malaise, fever, chills, headache, chest pain, chest pressure, palpitations, cough, shortness of breath, orthopnea, paroxsymal nocturnal dyspnea, nausea, vomiting, diarrhea, constipation, melena, hematochezia, urinary difficulties, prolonged bleeding, easily bruising, heat or cold intolerance, new onset joint pain or swelling, new onset extremity weakness or numbness, new onset auditory or visual disturbances, lightheadedness, dizziness, partial loss of consciousness or full loss of consciousness. Current Outpatient Medications on File Prior to Visit Medication Sig RINVOQ 15 mg tablet 1 tablet Orally Once a day for 30 days metoprolol succinate ER (TOPROL XL) 50 mg 24 hr tablet TAKE 1 TABLET (50 MG) ORALLY DAILY cyanocobalamin (VITAMIN B-12) 1,000 mcg tab 1 tab(s) orally once a day for 30 day(s) cholecalciferol (VITAMIN D3) 400 unit tab as directed orally once a day for 30 day(s) Ascorbic Acid 1,000 mg tablet 1 tab(s) orally once a day for 30 day(s) XIIDRA 5 % ophthalmic drops INSTILL 1 DROP IN BOTH EYES TWICE DAILY HUMIRA PEN 40 mg/0.8 mL sulfaSALAzine EC (AZULFIDINE EN) 500 mg EC tablet 2 TAB(S) ORALLY 2 TIMES A DAY 30 DAYS methotrexate 2.5 mg tablet folic acid 1 mg tablet chlorthalidone (HYGROTON) 25 mg tablet Take 25 mg by mouth once daily. cyclobenzaprine (FLEXERIL) 10 mg tablet Take 1 tablet by mouth every 8 hours as needed. (Patient not taking: Reported on 10/31/2023) lisinopril (ZESTRIL, PRINIVIL) 10 mg tablet Take 10 mg by mouth once daily. (Patient not taking: Reported on 10/31/2023) No current facility-administered medications on file prior to visit. ALLERGIES No Known Allergies Physical Exam: Vitals: There were no vitals taken for this visit. Psych: Pleasant, good affect and mood General Appearance: Well appearing, alert, in no acute distress, well-hydrated, well nourished.. Skin: Skin color, texture, turgor normal, no suspicious rashes or lesions. Peripheral Pulses: Normal. Neurologic: Gait normal. Reflexes normal and symmetric. Sensation grossly intact.. Lymph Nodes: No cervical lymphadenopathy, No supraclavicular lymphadenopathy, No axillary lymphadenopathy., and No inguinal lymphadenopathy.. Respiratory: No recent pulmonary infection, hemoptysis, chronic cough, or shor (more content not included)... Normal [facility] CYTOLOGY NON-GYNon 4 CASE REPORT Normal [facility] Comment on above: Order Comment: Speci men Type: SPECIMEN OBTAINED BY [facility]IR[employer] Ordering Facility: [facility] Address: [address] [place] [address] Result Comment: [facility] Cytology Report Case: [id number] Authorizing Provider: Cassandra Sullivan DO Collected: 10/31/2023 08:35 AM Ordering Location: Orthopaedics Received: 10/31/2023 10:29 AM Pathologist: Chelsey Anthony MD Specimen: Knee, Left Performed By: #### C YTONON #### [facility] CLIA [id number] [address] [place] [address] [facility] CLIA [id number] [address] CLINICAL HISTORY left knee pain Normal [facility] Comment on above: Order Comment: Speci men Type: SPECIMEN OBTAINED BY ASPIRATION Ordering Facility: [facility] Address: [address] [place] [address] Performed By: #### C YTONON #### [facility] CLIA [id number] [address] [place] [address] [facility] CLIA [id number] [address] FINAL DIAGNOSIS Normal [facility] Comment on above: Order Comment: Speci men Type: SPECIMEN OBTAINED BY [facility]IRATION Ordering Facility: [facility] Address: [address] [place] [address] Result Comment: A - Knee, Left, Fine Needle Aspirate Negative for malignant cells. Mixed inflammation with macrophages and neutrophils. The following cell blocks were associated with this case: A1 Cell Block, Alcohol Fixed Performed By: #### C YTONON #### [facility] CLIA [id number] [address] [place] [address] [facility] CLIA [id number] [address] FINAL PERFORMING LAB Normal [facility] Comment on above: Order Comment: Speci men Type: SPECIMEN OBTAINED BY [employer]IR[employer] Ordering Facility: [facility] Address: [address] [place] [address] Result Comment: Tech nical component, product marketing analyst screening performed at [facility], [address] [place] [address] CLIA# [id number] Diagnostic interpretation performed at [facility], [address] [place] [address] CLIA# [id number] Yarn Examiner: Edi Jones M.D. Performed By: #### C YTONON #### [facility] CLIA [id number] [address] [place], [place] [address] CLIA [id number] [address] GROSS DESCRIPTION A. Knee, Left Normal [facility] Comment on above: Order Comment: Speci men Type: SPECIMEN OBTAINED BY [employer]IRATION Ordering Facility: [facility] Address: [address] [place] [address] Result Comment: 20 c c clear yellow fluid in two syringes. ThinPrep and Cell Block prepared. Performed By: #### C YTONON #### [facility] CLIA [id number] [address] [place] [address] [facility] CLIA [id number] [address] Laboratory - Specimen inform ationOrdered By: Julienne Freeman on 10-31-2023 Color (Syn fld) Yellow Yellow [facility] Large Joint Arthro/Inj: L kn ee jointon 10-31-2023 Cassandra Sullivan, DO 10/31/2023 8:42 AM Large Joint Arthro/Inj: L knee joint Informed Consent Consent Obtained: Verbal [place] Protocol A moment to CARE was completed. SIGN IN Sign in communication not applicable due to emergent procedure. Personnel directly involved with the procedure wore the appropriate PPE. Special Equipment: N/A Patient/Surrogate Stated/Verified: Patient name, Date of , Relevant allergies and Intended procedure TIME OUT Intended patient and procedure match the source document(s). Relevant labs, photos, and/or imaging studies have been reviewed. Correct side/site marked and visible. Medications required for procedure verified. No fire risk assessment and interventions applicable. No implant(s) inserted. 10/31/2023 8:21 AM The procedure site was prepped in the usual sterile fashion. Site: L knee joint Medications: 80 mg triamcinolone acetonide 40 mg/mL Anesthetics: 8 mL BUPivacaine (PF) 0.5 % (5 mg/mL) Outcome: Tolerated well, no immediate complications Post-injection instructions were reviewed with the patient and the patient voiced understanding of these instructions. SIGN OUT All instruments, equipment, possible retained foreign bodies accounted for. [facility] SYNOVIAL FLUID MANUAL DIFFon 10-31-2023 Diff Total Synovial Fluid 100 cells counted [facility] Lymph%, SF 12 [facility] Macro%, SF 79 [facility] Neut%, SF 8 0 - <25 [facility] Synovial Cell% 1 [facility] DIF TTL, SYNOVIAL FLUID 100 cells counted Normal [facility] Comment on above: Order Comment: Speci men Type: FLUID SPECIMEN Ordering Facility: [facility] Address: [address] [place] [address] Performed By: #### Neo CANNON [id number] #### [facility] CLIA [id number] [address] [place] [address] [place] #### SFCRID #### [facility] CLIA [id number] [address] [place] [address] [place] [facility] CLIA [id number] [address] [place] [address] [place] LYMPH%, SF [address] [facility] Comment on above: Order Comment: Speci men Type: FLUID SPECIMEN Ordering Facility: [facility] Address: [address] [place] [address] Performed By: #### Neo CANNON [id number] #### [facility] CLIA [id number] [address] [place] [address] [place] #### SFCRID #### [facility] CLIA [id number] [address] [place] [address] [place] [facility] CLIA [id number] [address] [place] [address] [place] MACRO%, SF [address] [facility] Comment on above: Order Comment: Speci men Type: FLUID SPECIMEN Ordering Facility: [facility] Address: [address] [place] [address] Performed By: #### Neo CANNON [id number] #### [facility] CLIA [id number] [address] [place] [address] [place] #### SFCRID #### [facility] CLIA [id number] [address] [place] [address] [place] [facility] CLIA [id number] [address] [place] [address] [place] NEUT% 8 Normal 0-<[address] [facility] Comment on above: Order Comment: Speci men Type: FLUID SPECIMEN Ordering Facility: [facility] Address: [address] [place] [address] Performed By: #### Neo CANNON [id number] #### [facility] CLIA [id number] [address] [place] [address] [place] #### SFCRID #### [facility] CLIA [id number] [address] [place] [address] [place] [facility] CLIA [id number] [address] [place] [address] [place] SYNOVIAL C1% [address] [facility] Comment on above: Order Comment: Speci men Type: FLUID SPECIMEN Ordering Facility: [facility] Address: [address] [place] [address] Performed By: #### Neo CANNON [id number] #### [facility] CLIA [id number] [address] OF [place] #### SFCRID #### [facility] CLIA [id number] [address] [place] [address] [place] [facility] CLIA [id number] [address] [place] [address] [place] SYNOVIAL FLUID, CRYSTAL ID/P ATHOLOGIST INTERPRETATIONon 10-31-2023 CRYSTAL PRELIM, SF PRELIMINARY REPORT P ositive for crystals with polarizing properties of calcium pyrophosphate. SEE FINAL SF PATH REVIEW Normal [facility] Comment on above: Order Comment: Speci men Type: FLUID SPECIMEN Ordering Facility: [facility] Address: [address] [place] [address] Performed By: #### Neo CANNON [id number] #### [facility] CLIA [id number] [address] [place] [address] [place] #### SFCRID #### [facility] CLIA [id number] [address] [place] [address] [place] [facility] CLIA [id number] [address] [place] [address] [place] CRYSTAL REVIEW Reviewed by Avery Cortez MD, PhD Normal [facility] Comment on above: Order Comment: Speci men Type: FLUID SPECIMEN Ordering Facility: [facility] Address: [address] [place] [address] Performed By: #### Neo CANNON [id number] #### [facility] CLIA [id number] [address] [place] [address] [place] #### SFCRID #### [facility] CLIA [id number] [address] [place] [address] [place] [facility] CLIA [id number] [address] [place] [address] [place] Crystals LM Nom (Syn fld) Positive for crystals with polarizing properties of calcium pyrophosphate. Abnormal None seen [facility] Comment on above: Order Comment: Speci men Type: FLUID SPECIMEN Ordering Facility: [facility] Address: [address] [place] [address] Performed By: #### Neo CANNON [id number] #### [facility] CLIA [id number] [address] [place] [address] [place] #### SFCRID #### [facility] CLIA [id number] [address] [place] [address] [place] [facility] CLIA [id number] [address] [place] [address] [place] SYNOVIAL FLUID, ROUTINEOrder ed By: Julienne Freeman on 10-31-2023 Clarity (Unsp spec) Slightly Cloudy Abnormal Clear [facility] Clarity (Unsp spec) Clear Clear [facility] Interpretation and review of laboratory results Abnormal [facility] RBC Manual cnt (Syn fld) [#/Vol] /uL NINF - 2000 /uL [facility] Specimen source Nom (Unsp spec) Knee, Left [facility] WBC Manual cnt (Syn fld) [#/Vol] 396 /uL High 0 - 200 /uL [facility] SYNOVIAL FLUID, ROUTINEon Clarity (Unsp spec) Clear Normal Clear [facility] Comment on above: Order Comment: Speci men Type: FLUID SPECIMEN Ordering Facility: [facility] Address: [address] [place] [address] Performed By: #### Neo CANNON [id number] #### [facility] CLIA [id number] [address] OF [place] #### SFCRID #### [facility] CLIA [id number] [address] [place] [address] [place] [facility] CLIA [id number] [address] [place] [address] [place] Color (Syn fld) Yellow Normal Yellow [facility] Comment on above: Order Comment: Speci men Type: FLUID SPECIMEN Ordering Facility: [facility] Address: [address] [place] [address] Performed By: #### Neo CANNON [id number] #### [facility] CLIA [id number] [address] [place] [address] [place] #### SFCRID #### [facility] CLIA [id number] [address] [place] [address] [place] [facility] CLIA [id number] [address] [place] [address] [place] RBC Manual cnt (Syn fld) [#/Vol] <2000 Normal <[address] [facility] Comment on above: Order Comment: Speci men Type: FLUID SPECIMEN Ordering Facility: [facility] Address: [address] [place] [address] Performed By: #### Neo CANNON [id number] #### [facility] CLIA [id number] [address] [place] [address] [place] #### SFCRID #### [facility] CLIA [id number] [address] [place] [address] [place] [facility] CLIA [id number] [address] [place] [address] [place] Specimen source Nom (Unsp spec) Knee, Left Normal [facility] Comment on above: Order Comment: Speci men Type: FLUID SPECIMEN Ordering Facility: [facility] Address: [address] [place] [address] Performed By: #### Neo CANNON [id number] #### [facility] CLIA [id number] [address] [place] [address] [place] #### SFCRID #### [facility] CLIA [id number] [address] [place] [address] [place] [facility] CLIA [id number] [address] [place] [address] [place] WBC Manual cnt (Syn fld) [#/Vol] 396 /uL High 0-[address] [facility] Comment on above: Order Comment: Speci men Type: FLUID SPECIMEN Ordering Facility: [facility] Address: [address] [place] [address] Performed By: #### Neo CANNON [id number] #### [facility] CLIA [id number] [address] [place] [address] [place] #### SFCRID #### [facility] CLIA [id number] [address] [place] [address] [place] [facility] CLIA [id number] [address] [place] [address] [place] XR KNEE 4V AP/PA BOTH+LAT/ME R LTon 10-31-2023 XR KNEE 4V AP/PA BOTH+LAT/KERWIN LT * * *Final Report* * * DATE OF EXAM: Oct 31 2023 7:47AM MARCIA 5202 - XR KNEE 4V AP/PA BOTH+LAT/KERWIN LT / PROCEDURE REASON: M25.562-Left knee pain, unspecified chronicity * * * * Physician Interpretation * * * * PROCEDURE: Left knee INDICATION: Left knee pain, unspecified chronicity .left knee pain TECHNIQUE: XR KNEE 4V AP/PA BOTH+LAT/KERWIN LT COMPARISON: None FINDINGS: Significant medial joint compartment narrowing with tricompartment spur formation, lateral tibial translation chondrocalcinosis. No fracture. Moderate joint effusion. Mild degenerative changes in the right knee. IMPRESSION: Advanced osteoarthrosis with chondrocalcinosis and joint effusion. Retail Customer Service Specialist: [facility] Transcribe Date/Time: Nov 02 2023 10:03A Dictated by : TENNILLE GIRON MD This examination was interpreted and the report reviewed and electronically signed by: TENNILLE GIRON MD on Nov 02 2023 10:06AM EST [id number] Normal [facility] XR Knee - left 4 Viewson Radiology Study observation (narrative) [facility] CBC W/Diff, Automatedon 12-1 Absolute Lymph 2.55 X10 3/uL Normal 0.83-4.51 [facility] Comment on above: Performed By: #### L 100.0100, L500.4050, L501.9910, L501.9520, L500.4100 #### [facility] [address] [place], [address] Absolute Neut 5.8 X10 3/uL Normal 2.0-7.7 [facility] Comment on above: Performed By: #### L 100.0100, L500.4050, L501.9910, L501.9520, L500.4100 #### [facility] [address] [place], [address] Basophils/100 WBC (Bld) 0.3 % Normal 0-1 [facility] Comment on above: Performed By: #### L 100.0100, L500.4050, L501.9910, L501.9520, L500.4100 #### [facility] [address] [place], [address] Eosinophils/100 WBC (Bld) 1.1 % Normal 0-5 [facility] Comment on above: Performed By: #### L 100.0100, L500.4050, L501.9910, L501.9520, L500.4100 #### [facility] [address] [place], [address] Erythrocyte distribution width (RBC) [Ratio] 13.9 % Normal 11.6-14.6 [facility] Comment on above: Performed By: #### L 100.0100, L500.4050, L501.9910, L501.9520, L500.4100 #### [facility] [address] [place], [address] Hematocrit (Bld) [Volume fraction] 44.3 % Normal 40-54 [facility] Comment on above: Performed By: #### L 100.0100, L500.4050, L501.9910, L501.9520, L500.4100 #### [facility] [address] [place], [address] Hemoglobin (Bld) [Mass/Vol] 14.6 g/dL Normal 13.0-16.5 [facility] Comment on above: Performed By: #### L 100.0100, L500.4050, L501.9910, L501.9520, L500.4100 #### [facility] [address] [place], [address] IG% 0.300 Normal 0.0-0.9 [facility] Comment on above: Result Comment: IG% - Immature Granulocytes (promyelocytes, myelocytes and metamyelocytes) > 1% indicates that a LEFT SHIFT is Present. Performed By: #### L 100.0100, L500.4050, L501.9910, L501.9520, L500.4100 #### [facility] [address] [place], [address] Lymphocytes/100 WBC (Bld) 25.7 % Normal 19-41 [facility] Comment on above: Performed By: #### L 100.0100, L500.4050, L501.9910, L501.9520, L500.4100 #### [facility] [address] [place], [address] MCH (RBC) [Entitic mass] 32.6 pg High 27.0-32.0 [facility] Comment on above: Performed By: #### L 100.0100, L500.4050, L501.9910, L501.9520, L500.4100 #### [facility] [address] [place], [address] MCHC (RBC) [Mass/Vol] 33.0 g/dL Normal 32-36 [facility] Comment on above: Performed By: #### L 100.0100, L500.4050, L501.9910, L501.9520, L500.4100 #### [facility] [address] [place], [address] MCV (RBC) [Entitic vol] 98.9 fL High 80-94 [facility] Comment on above: Performed By: #### L 100.0100, L500.4050, L501.9910, L501.9520, L500.4100 #### [facility] [address] [place], [address] Monocytes/100 WBC (Bld) 14.2 % High 0-10 [facility] Comment on above: Performed By: #### L 100.0100, L500.4050, L501.9910, L501.9520, L500.4100 #### [facility] [address] [place], [address] Neutrophils/100 WBC (Bld) 58.4 % Normal 47-70 [facility] Comment on above: Performed By: #### L 100.0100, L500.4050, L501.9910, L501.9520, L500.4100 #### [facility] [address] [place], [address] Nucleated RBC (Bld) [#/Vol] 0 10*3/uL Normal 0-5 [facility] Comment on above: Performed By: #### L 100.0100, L500.4050, L501.9910, L501.9520, L500.4100 #### [facility] [address] [place], [address] Platelet mean volume (Bld) [Entitic vol] 9.5 fL Normal 6.2-12.0 [facility] Comment on above: Performed By: #### L 100.0100, L500.4050, L501.9910, L501.9520, L500.4100 #### [facility] [address] [place], [address] Platelets (Bld) [#/Vol] 285 10*3/uL Normal 150-450 [facility] Comment on above: Performed By: #### L 100.0100, L500.4050, L501.9910, L501.9520, L500.4100 #### [facility] [address] [place], [address] RBC (Bld) [#/Vol] 4.48 10*6/uL Low 4.6-6.2 [facility] Comment on above: Performed By: #### L 100.0100, L500.4050, L501.9910, L501.9520, L500.4100 #### [facility] [address] [place], [address] RDW SD 50.4 fl High 35.1-43.9 [facility] Comment on above: Performed By: #### L 100.0100, L500.4050, L501.9910, L501.9520, L500.4100 #### [facility] [address] [place], [address] WBC (Bld) [#/Vol] 9.9 10*3/uL Normal 4.4-11.0 [facility] Comment on above: Performed By: #### L 100.0100, L500.4050, L501.9910, L501.9520, L500.4100 #### [facility] [address] [place], [address] Comprehensive Metabolic Prof [facility] 03-20-2023 Albumin [Mass/Vol] 3.4 g/dL Normal 3.2-5.0 [facility] Comment on above: Performed By: #### L 100.0100, L500.4050, L501.9910, L501.9520, L500.4100 #### [facility] [address] [place], [address] Albumin/Globulin [Mass ratio] 0.9 {ratio} Normal 0.9-2.4 [facility] Comment on above: Performed By: #### L 100.0100, L500.4050, L501.9910, L501.9520, L500.4100 #### [facility] [address] [place], [address] ALK P 81 U/L Normal 45-117 [facility] Comment on above: Performed By: #### L 100.0100, L500.4050, L501.9910, L501.9520, L500.4100 #### [facility] [address] [place], [address] ALT [Catalytic activity/Vol] 40 U/L Normal 16-61 [facility] Comment on above: Performed By: #### L 100.0100, L500.4050, L501.9910, L501.9520, L500.4100 #### [facility] [address] [place], [address] AST [Catalytic activity/Vol] 26 U/L Normal 15-37 [facility] Comment on above: Performed By: #### L 100.0100, L500.4050, L501.9910, L501.9520, L500.4100 #### [facility] [address] [place], [address] Bilirubin [Mass/Vol] 0.40 mg/dL Normal 0.20-1.00 [facility] Comment on above: Result Comment: For patients on eltrombopag therapy, use of Dimension [place] TBIL is not recommended. Performed By: #### L 100.0100, L500.4050, L501.9910, L501.9520, L500.4100 #### [facility] [address] [place], [address] BUN/CRE 20.2 RATIO High 10-20 [facility] Comment on above: Performed By: #### L 100.0100, L500.4050, L501.9910, L501.9520, L500.4100 #### [facility] [address] [place], [address] CA,Total 8.8 mg/dL Normal 8.5-10.1 [facility] Comment on above: Performed By: #### L 100.0100, L500.4050, L501.9910, L501.9520, L500.4100 #### [facility] [address] [place], [address] Chloride [Moles/Vol] 104 mmol/L Normal 98-107 [facility] Comment on above: Performed By: #### L 100.0100, L500.4050, L501.9910, L501.9520, L500.4100 #### [facility] [address] [place], [address] CO2 [Moles/Vol] 29.0 mmol/L Normal 21.0-32.0 [facility] Comment on above: Performed By: #### L 100.0100, L500.4050, L501.9910, L501.9520, L500.4100 #### [facility] [address] [place], [address] Creatinine [Mass/Vol] 1.09 mg/dL Normal 0.70-1.30 [facility] Comment on above: Result Comment: The validity of the calculated GFR GFRAA in patients over 70 years has not been determined. Clinical correlation is essential. Performed By: #### L 100.0100, L500.4050, L501.9910, L501.9520, L500.4100 #### [facility] [address] [place], [address] EST GFR - AA 88 mL/min Normal >60 [facility] Comment on above: Result Comment: Afri can [place] GFR Calc Performed By: #### L 100.0100, L500.4050, L501.9910, L501.9520, L500.4100 #### [facility] [address] [place], [address] GAP 6 Normal 5-15 [facility] Comment on above: Performed By: #### L 100.0100, L500.4050, L501.9910, L501.9520, L500.4100 #### [facility] [address] [place], [address] GFR/1.73 sq M.predicted among non-blacks MDRD (S/P/Bld) [Vol rate/Area] 73 mL/min/{1.73_m2} Normal >60 [facility] Comment on above: Result Comment: Non- GFR Calc Performed By: #### L 100.0100, L500.4050, L501.9910, L501.9520, L500.4100 #### [facility] [address] [place], [address] Globulin (S) [Mass/Vol] 3.6 g/dL Normal 2.2-4.2 [facility] Comment on above: Performed By: #### L 100.0100, L500.4050, L501.9910, L501.9520, L500.4100 #### [facility] [address] [place], [address] Glucose [Mass/Vol] 104 mg/dL Normal 74-106 [facility] Comment on above: Result Comment: Fast ing Glucose result from 100 to 125 mg/dL suggests IMPAIRED HOMEOSTASIS per A.D.A. criteria. Performed By: #### L 100.0100, L500.4050, L501.9910, L501.9520, L500.4100 #### [facility] [address] [place], [address] Potassium [Moles/Vol] 3.7 mmol/L Normal 3.5-5.1 [facility] Comment on above: Performed By: #### L 100.0100, L500.4050, L501.9910, L501.9520, L500.4100 #### [facility] [address] [place], [address] Sodium [Moles/Vol] 139 mmol/L Normal 136-145 [facility] Comment on above: Performed By: #### L 100.0100, L500.4050, L501.9910, L501.9520, L500.4100 #### [facility] [address] [place], [address] T PROT 7.0 g/dL Normal 6.4-8.2 [facility] Comment on above: Performed By: #### L 100.0100, L500.4050, L501.9910, L501.9520, L500.4100 #### [facility] [address] [place], [address] Urea nitrogen [Mass/Vol] 22 mg/dL High 7-18 [facility] Comment on above: Performed By: #### L 100.0100, L500.4050, L501.9910, L501.9520, L500.4100 #### [facility] [address] [place], [address] Lipid Profileon 03-20-2023 Cholesterol [Mass/Vol] 201 mg/dL High 200 [facility] Comment on above: Result Comment: <200 mg/dL Desirable 200-240 mg/dL Borderline >240 mg/dL High Risk Performed By: #### L 100.0100, L500.4050, L501.9910, L501.9520, L500.4100 #### [facility] [address] [place], [address] Cholesterol in HDL [Mass/Vol] 49 mg/dL Normal [facility] Comment on above: Result Comment: The drugs N-Acetylcysteine and Metamizole may falsely depress this assay. Reference Range HDL <40 mg/dL Low HDL Cholesterol HDL >or= 60 mg/dL High HDL Cholesterol Performed By: #### L 100.0100, L500.4050, L501.9910, L501.9520, L500.4100 #### [facility] [address] [place], [address] Cholesterol in LDL [Mass/Vol] 111 mg/dL Normal 0-130 [facility] Comment on above: Performed By: #### L 100.0100, L500.4050, L501.9910, L501.9520, L500.4100 #### [facility] [address] [place], [address] Cholesterol in VLDL [Mass/Vol] 41 mg/dL High 5-40 [facility] Comment on above: Performed By: #### L 100.0100, L500.4050, L501.9910, L501.9520, L500.4100 #### [facility] [address] [place], [address] Triglyceride [Mass/Vol] 204 mg/dL High [facility] Comment on above: Result Comment: The drugs N-Acetylcysteine and Metamizole may falsely depress this assay. Serum Triglycerides Reference Interval Normal <150 mg/dL Borderline high 150 - 199 mg/dL High 200 - 499 mg/dL Very High > or = 500 mg/dL Performed By: #### L 100.0100, L500.4050, L501.9910, L501.9520, L500.4100 #### [facility] [address] [place], [address] PSA,Total - Annual Screenon 03-20-2023 PSA,TOT SCREEN 0.64 ng/mL Normal 0.00-4.00 [facility] Comment on above: Result Comment: This test was performed using the TPSA assay method for the [employer] chemistry system. Values obtained with different assay methods cannot be used interchangably. When changing PSA assays in the course of monitoring a patient, additional sequential testing should be carried out to confirm baseline values. Performed By: #### L 100.0100, L500.4050, L501.9910, L501.9520, L500.4100 #### [facility] [address] [place], [address] Thyroid Stim Hormone (TSH)on 03-20-2023 TSH 1.58 uIU/mL Normal 0.358-3.74 [facility] Comment on above: Performed By: #### L 100.0100, L500.4050, L501.9910, L501.9520, L500.4100 #### [facility] [address] [place], [address] Absolute lymphocyte countOrd ered By: Dmitri Boston on 03-19-2023 Lymphocytes Auto (Unsp spec) [#/Vol] 2.55 10*3/uL 0.83-4.51 [facility] Basophil percentageOrdered B y: Dmitri Boston on 03-19-2023 Basophils/100 WBC (Bld) 0.3 % 0-1 [facility] Bilirubin [Mass/Vol] 0.40 mg/dL 0.20-1.00 [facility] Comment on above: For patients on eltr ombopag therapy, use of Dimension [place] TBIL is not recommended. Chloride [Moles/Vol] 104 mmol/L 98-107 [facility] Cholesterol [Mass/Vol] 201 mg/dL <200 [facility] Comment on above: <200 mg/dL Desirable 200-240 mg/dL Borderline >240 mg/dL High Risk Eosinophils/100 WBC (Bld) 1.1 % 0-5 [facility] Glucose [Mass/Vol] 104 mg/dL 74-106 [facility] Comment on above: Fasting Glucose resu lt from 100 to 125 mg/dL suggests IMPAIRED HOMEOSTASIS per A.D.A. criteria. Neutrophils (Bld) [#/Vol] 5.8 10*3/uL 2.0-7.7 [facility] Neutrophils/100 WBC (Bld) 58.4 % 47-70 [facility] Potassium [Moles/Vol] 3.7 mmol/L 3.5-5.1 [facility] Protein [Mass/Vol] 7.0 g/dL 6.4-8.2 [facility] Sodium [Moles/Vol] 139 mmol/L 136-145 [facility] Triglyceride [Mass/Vol] 204 mg/dL <199 [facility] Comment on above: The drugs N-Acetylcy steine and Metamizole may falsely depress this assay.Serum Triglycerides Reference Interval Normal <150 mg/dL Borderline high 150 - 199 mg/dL High 200 - 499 mg/dL Very High > or = 500 mg/dL WBC (Bld) [#/Vol] 9.9 10*3/uL 4.4-11.0 [facility] Blood erythrocytes count (nu mber/volume)Ordered By: Dmitri Boston on 03-19-2023 RBC (Bld) [#/Vol] 4.48 10*6/uL 4.6-6.2 [facility] Blood hemoglobin measurement (mass/volume)Ordered By: Dmitri Boston on 03-19-2023 Hemoglobin (Bld) [Mass/Vol] 14.6 g/dL 13.0-16.5 [facility] Blood lymphocytes/100 leukoc ytesOrdered By: Dmitri Boston on 03-19-2023 Lymphocytes/100 WBC (Bld) 25.7 % 19-41 [facility] Blood monocytes/100 leukocyt esOrdered By: Dmitri Boston on 03-19-2023 Monocytes/100 WBC (Bld) 14.2 % 0-10 [facility] Blood platelet mean volumeOr dered By: Dmitri Boston on 03-19-2023 Platelet mean volume (Bld) [Entitic vol] 9.5 fL 6.2-12.0 [facility] Determination of erythrocyte mean corpuscular volume (MCV)Ordered By: Dmitri Boston on 03-19-2023 MCV (RBC) [Entitic vol] 98.9 fL 80-94 [facility] Hematocrit Auto (Bld) [Volum e fraction]Ordered By: Dmitri Boston on 03-19-2023 Hematocrit (Bld) [Volume fraction] 44.3 % 40-54 [facility] - Chemistry and C hemistry - challengeOrdered By: Dmitri Boston on 03-19-2023 ALP [Catalytic activity/Vol] 81 U/L 45-117 [facility] ALT [Catalytic activity/Vol] 40 U/L 16-61 [facility] CO2 [Moles/Vol] 29.0 mmol/L 21.0-32.0 [facility] Globulin (S) [Mass/Vol] 3.6 g/dL 2.2-4.2 [facility] Urea nitrogen/Creatinine [Mass ratio] 20.2 mg/mg 10-20 [facility] - Hematology and Cell countsOrdered By: Dmitri Boston on 03-19-2023 Erythrocyte distribution width (RBC) [Entitic vol] 50.4 fL 35.1-43.9 [facility] Erythrocyte distribution width (RBC) [Ratio] 13.9 % 11.6-14.6 [facility] Immature granulocytes/100 WBC (Bld) 0.300 % 0.0-0.9 [facility] Comment on above: IG% - Immature Granu locytes (promyelocytes, myelocytes and metamyelocytes) > 1% indicates that a LEFT SHIFT is Present. MCH (RBC) [Entitic mass] 32.6 pg 27.0-32.0 [facility] Nucleated RBC/100 WBC (Bld) [Ratio] 0 % 0-5 [facility] MCHC Auto (RBC) [Mass/Vol]Or dered By: Dmitri Boston on 03-19-2023 MCHC (RBC) [Mass/Vol] 33.0 g/dL 32-36 [facility] No Panel InformationOrdered By: Dmitri Boston on 03-19-2023 Estimated GFR (MDRD) Amer 88 mL/min >60 [facility] Comment on above: GFR Calc Estimated GFR (MDRD) Non-Af Amer 73 mL/min >60 [facility] Comment on above: Non- GFR Calc Prostate Specific Antigen Screen 0.64 ng/mL 0.00-4.00 [facility] Comment on above: This test was perfor med using the TPSA assay method for [employer] chemistry system. Values obtained with differentassay methods cannot be used interchangably.When changing PSA assays in the course of monitoring apatient, additional sequential testing should be carriedout to confirm baseline values. Thyroid Stimulating Hormone (TSH) 1.58 uIU/mL 0.358-3.74 [facility] Platelets bldOrdered By: Jono Boston on 03-19-2023 Platelets (Bld) [#/Vol] 285 10*3/uL 150-450 [facility] Serum or plasma albumin jamila urement (mass/volume)Ordered By: Dmitri Boston on 03-19-2023 Albumin [Mass/Vol] 3.4 g/dL 3.2-5.0 [facility] Serum or plasma albumin/glob ulin mass ratioOrdered By: Dmitri Boston on 03-19-2023 Albumin/Globulin [Mass ratio] 0.9 {ratio} 0.9-2.4 [facility] Serum or plasma calcium jamila urement (mass/volume)Ordered By: Dmitri Boston on 03-19-2023 Calcium [Mass/Vol] 8.8 mg/dL 8.5-10.1 [facility] Serum or plasma cholesterol in HDL measurement (mass/volume)Ordered By: Dmitri Boston on 03-19-2023 Cholesterol in HDL [Mass/Vol] 49 mg/dL >40 [facility] Comment on above: The drugs N-Acetylcy steine and Metamizole may falsely depress this assay. Reference Range HDL <40 mg/dL Low HDL Cholesterol HDL >or= 60 mg/dL High HDL Cholesterol Serum or plasma cholesterol in VLDL measurement (mass/volume)Ordered By: Dmitri Boston on 03-19-2023 Cholesterol in VLDL [Mass/Vol] 41 mg/dL 5-40 [facility] Serum or plasma creatinine m easurement (mass/volume)Ordered By: Dmitri Boston on 03-19-2023 Creatinine [Mass/Vol] 1.09 mg/dL 0.70-1.30 [facility] Comment on above: The validity of the calculated GFR & GFRAA in patients over 70 years has not been determined. Clinical correlation is essential. Serum or plasma low density lipoprotein (LDL) cholesterol measurement (mass/volume)Ordered By: Dmitri Boston on 03-19-2023 Cholesterol in LDL [Mass/Vol] 111 mg/dL 0-130 [facility] Serum or plasma urea nitroge n measurement (mass/volume)Ordered By: Dmitri Boston on 03-19-2023 Urea nitrogen [Mass/Vol] 22 mg/dL 7-18 [facility] Thin prep Papanicolaou smear with manual screeningOrdered By: Dmitri Boston on 03-19-2023 Thin prep Papanicolaou smear with manual screening 26 U/L 15-37 [facility] Thin prep Papanicolaou smear with manual screening 6 5-15 [facility] Absolute lymphocyte counton 12-17-2021 Lymphocytes Auto (Unsp spec) [#/Vol] 2.18 10*3/uL 0.83-4.51 [facility] Work Phone: Basophil percentageon 2021 Basophils/100 WBC (Bld) 0.2 % 0-1 [facility] Work Phone: Bilirubin [Mass/Vol] 0.30 mg/dL 0.20-1.00 [facility] Work Phone: Comment on above: For patients on eltr ombopag therapy, use of Dimension [place] TBIL is not recommended. Chloride [Moles/Vol] 103 mmol/L 98-107 [facility] Work Phone: Cholesterol [Mass/Vol] 222 mg/dL <200 [facility] Work Phone: Comment on above: <200 mg/dL Desirable 200-240 mg/dL Borderline >240 mg/dL High Risk Eosinophils/100 WBC (Bld) 2.6 % 0-5 [facility] Work Phone: Glucose [Mass/Vol] 94 mg/dL 74-106 [facility] Work Phone: Neutrophils (Bld) [#/Vol] 5.3 10*3/uL 2.0-7.7 [facility] Work Phone: Neutrophils/100 WBC (Bld) 59.4 % 47-70 [facility] Work Phone: [phone] Potassium [Moles/Vol] 4.3 mmol/L 3.5-5.1 [facility] Work Phone: Comment on above: Slight Hemolysis, Re sult may be falsely increased. Protein [Mass/Vol] 7.1 g/dL 6.4-8.2 [facility] Work Phone: [phone] Sodium [Moles/Vol] 139 mmol/L 136-145 [facility] Work Phone: Triglyceride [Mass/Vol] 305 mg/dL <199 [facility] Work Phone: Comment on above: The drugs N-Acetylcy steine and Metamizole may falsely depress this assay.Serum Triglycerides Reference Interval Normal <150 mg/dL Borderline high 150 - 199 mg/dL High 200 - 499 mg/dL Very High > or = 500 mg/dL WBC (Bld) [#/Vol] 8.9 10*3/uL 4.4-11.0 [facility] Work Phone: Blood erythrocytes count (nu mber/volume)on 12-17-2021 RBC (Bld) [#/Vol] 4.26 10*6/uL 4.6-6.2 [facility] Work Phone: Blood hemoglobin measurement (mass/volume)on 12-17-2021 Hemoglobin (Bld) [Mass/Vol] 14.3 g/dL 13.0-16.5 [facility] Work Phone: Blood lymphocytes/100 leukoc yteson 12-17-2021 Lymphocytes/100 WBC (Bld) 24.5 % 19-41 [facility] Work Phone: [phone] Blood monocytes/100 leukocyt eson 12-17-2021 Monocytes/100 WBC (Bld) 12.9 % 0-10 [facility] Work Phone: Blood platelet mean volumeon 12-17-2021 Platelet mean volume (Bld) [Entitic vol] 9.6 fL 6.2-12.0 [facility] Work Phone: Determination of erythrocyte mean corpuscular volume (MCV)on 12-17-2021 MCV (RBC) [Entitic vol] 99.5 fL 80-94 [facility] Work Phone: Hematocrit Auto (Bld) [Volum e fraction]on 12-17-2021 Hematocrit (Bld) [Volume fraction] 42.4 % 40-54 [facility] Work Phone: Laboratory - Chemistry and C hemistry - challengeon 12-17-2021 ALP [Catalytic activity/Vol] 85 U/L 45-117 [facility] Work Phone: ALT [Catalytic activity/Vol] 57 U/L 16-61 [facility] Work Phone: CO2 [Moles/Vol] 31.0 mmol/L 21.0-32.0 [facility] Work Phone: Globulin (S) [Mass/Vol] 3.5 g/dL 2.2-4.2 [facility] Work Phone: Urea nitrogen/Creatinine [Mass ratio] 15.9 mg/mg 10-20 [facility] Work Phone: Laboratory - Hematology and Cell countson 12-17-2021 Erythrocyte distribution width (RBC) [Entitic vol] 48.2 fL 35.1-43.9 [facility] Work Phone: Erythrocyte distribution width (RBC) [Ratio] 13.4 % 11.6-14.6 [facility] Work Phone: Immature granulocytes/100 WBC (Bld) 0.400 % 0.0-0.9 [facility] Work Phone: Comment on above: IG% - Immature Granu locytes (promyelocytes, myelocytes and metamyelocytes) > 1% indicates that a LEFT SHIFT is Present. MCH (RBC) [Entitic mass] 33.6 pg 27.0-32.0 [facility] Work Phone: Nucleated RBC/100 WBC (Bld) [Ratio] 0 % 0-5 [facility] Work Phone: MCHC Auto (RBC) [Mass/Vol]on 12-17-2021 MCHC (RBC) [Mass/Vol] 33.7 g/dL 32-36 [facility] Work Phone: No Panel Informationon 12-17 Estimated GFR (MDRD) Amer 71 mL/min >60 [facility] Work Phone: Comment on above: GFR Calc Estimated GFR (MDRD) Non-Af Amer 59 mL/min >60 [facility] Work Phone: Comment on above: Non- GFR Calc Percent Free Prostate Specific Ag 0.16 ng/mL N/A [facility] Work Phone: Comment on above: Tere ECLIA methodol ogy. Prostate Specific Ag, Ultra-Sensitv 0.536 ng/mL 0.000-4.00 0 [facility] Work Phone: Comment on above: Tere ECLIA methodol ogy.According to the [place] [employer], Serum PSAshould decrease and remain at undetectable levels afterradical prostatectomy. The AUA defines biochemicalrecurrence as an initial PSA value 0.200 ng/mL or greaterfollowed by a subsequent confirmatory PSA value 0.200 ng/mLor greater. Values obtained with different assay methods orkits cannot be used interchangeably. Results cannot beinterpreted as absolute evidence of the presence or absenceof malignant disease. Platelets bldon 12-17-2021 Platelets (Bld) [#/Vol] 252 10*3/uL 150-450 [facility] Work Phone: Serum or plasma albumin jamila urement (mass/volume)on 12-17-2021 Albumin [Mass/Vol] 3.6 g/dL 3.2-5.0 [facility] Work Phone: Serum or plasma albumin/glob ulin mass ratioon 12-17-2021 Albumin/Globulin [Mass ratio] 1.0 {ratio} 0.9-2.4 [facility] Work Phone: Serum or plasma calcium jamila urement (mass/volume)on 12-17-2021 Calcium [Mass/Vol] 9.4 mg/dL 8.5-10.1 [facility] Work Phone: Serum or plasma cholesterol in HDL measurement (mass/volume)on 12-17-2021 Cholesterol in HDL [Mass/Vol] 46 mg/dL >40 [facility] Work Phone: Comment on above: The drugs N-Acetylcy steine and Metamizole may falsely depress this assay. Reference Range HDL <40 mg/dL Low HDL Cholesterol HDL >or= 60 mg/dL High HDL Cholesterol Serum or plasma cholesterol in VLDL measurement (mass/volume)on 12-17-2021 Cholesterol in VLDL [Mass/Vol] 61 mg/dL 5-40 [facility] Work Phone: Serum or plasma creatinine m easurement (mass/volume)on 12-17-2021 Creatinine [Mass/Vol] 1.32 mg/dL 0.70-1.30 [facility] Work Phone: Comment on above: The validity of the calculated GFR & GFRAA in patients over 70 years has not been determined. Clinical correlation is essential. Serum or plasma free prostat e specific antigen/total prostate specific antigen ratioon 12-17-2021 Free PSA/Total PSA [Mass fraction] 29.9 % . [facility] Work Phone: Comment on above: The table below list s the probability of prostate cancer formen with non-suspicious TRISH results and total PSA between4 and 10 ng/mL, by patient age (Salma et al, BERNARDO 1998,279:1542). % Free PSA 50-64 yr 65-75 yr 0.00-10.00% 56% 55% 10.01-15.00% 24% 35% 15.01-20.00% 17% 23% 20.01-25.00% 10% 20% >25.00% 5% 9%Please note: Salma et al did not make specific recommendations regarding the use of percent free PSA for any other population of men.Performed at: [employer] [id number] Director: Sly Sandoval PhD, Phone: [phone] Serum or plasma low density lipoprotein (LDL) cholesterol measurement (mass/volume)on 12-17-2021 Cholesterol in LDL [Mass/Vol] 115 mg/dL 0-130 [facility] Work Phone: Serum or plasma urea nitroge n measurement (mass/volume)on 12-17-2021 Urea nitrogen [Mass/Vol] 21 mg/dL 7-18 [facility] Work Phone: Thin prep Papanicolaou smear with manual screeningon 12-17-2021 Thin prep Papanicolaou smear with manual screening 38 U/L 15-37 [facility] Work Phone: Comment on above: Slight Hemolysis, Re sult may be falsely increased. Thin prep Papanicolaou smear with manual screening 5 5-15 [facility] Work Phone: CORONAVIRUS 2019 BY PCRon CORONAVIRUS 2019,PCR DETECTED Abnormal Not Detected [facility] Comment on above: Result Comment: . This assay is designed to detect the N, ORF1ab and/or S genes of SARS-CoV-2 via nucleic acid amplification. A Negative (NOT DETECTED) result does not preclude 2019-nCoV infection since the adequacy of sample collection and/or low viral burden may result in presence of viral nucleic acids below the clinical sensitivity of this test method. Negative (NOT DETECTED) result should not be used as the sole basis for treatment or other patient management decisions. Rather negative results should be combined with clinical observations, patient history, and epidemiological information to make patient management decisions. Fact sheet for providers: https://www.fda.gov/media/187164/download Fact sheet for patients: https://www.fda.gov/media/761846/download This test has received FDA Emergency Use Authorization (EUA) and has been verified by [facility] ([facility]). This test is only authorized for the duration of time that circumstances exist to justify the authorization of the emergency use of in vitro diagnostic tests for the detection of SARS-CoV-2 virus and/or diagnosis of COVID-19 infection under section 564(b)(1) of the Act, 21 U.S.C. 360bbb-3(b)(1), unless the authorization is terminated or revoked sooner. [facility] is certified under CLIA-88 as qualified to perform high complexity testing. Testing is performed in the [facility] laboratories located at [address] [place] [address]. Performed By: #### C OV19 #### [address] [place] [address] DATE OF SYMPTOM ONSET [YYYYMMDD]? 04/14/2020 Normal [facility] Comment on above: Performed By: #### C OV19 #### [address] [place] [address] Covid 19 Resultson 1 Covid 19 Results POSITIVE COVID-[address] Coronaviruses are common world-wide and are the cause of many common colds. SARS-COV2 is a new coronavirus that began circulating worldwide in 2019 so we are calling it COVID-19. It has been estimated that four out of five patients with COVID-19 will recover at home without the need for medical attention. Symptoms of COVID-19 include cough, fever, shortness of breath, loss of taste or smell and other flu-like symptoms including chills, sore muscles, sore throat, and headache. Severe illness is more common in older people and people with other health problems such as high blood pressure, obesity, and immune system problems. If the test is positive, you have COVID-19. You will be contacted by the ordering physicians office and instructed to remain on home isolation, in accordance with CDC guidelines. You may also be contacted by the [facility] to see if any of your close contacts may have been exposed to the virus and need to quarantine. If the test is negative, you likely do not have COVID-19 at this time, but you still may have a different illness that can spread to other people (like Influenza, or the Flu) and could still be at risk for getting COVID-19. We recommend that you stay away from other people to limit the spread of illness until your symptoms are improving and you are fever-free for 24 hours without the use of fever lowering medications such as acetaminophen or ibuprofen. No test is 100% accurate so if you are still concerned you may have COVID-19, talk to your doctor about the need to continue to stay away from others. Medicines Acetaminophen (Tylenol and others) is generally safe. Anti-inflammatory medications, such as Ibuprofen (Advil or Motrin) or Naproxen (Aleve) can also be used. Oqet-vol-zrtgdvu cough and cold medicines can be used according to the instructions on the package. Some gyem-snb-hxsbxlp medicines also contain acetaminophen. Make sure you are not taking more than your recommended dose For those not hospitalized, there is no specific treatment available for this illness. Antibiotics do not treat Coronaviruses. Follow-Up Follow up with your doctor by scheduling a virtual visit or consider follow-up at one of our urgent care fever clinics. If you are having difficulty breathing, or are very weak and having difficulty standing, this is a medical emergency. Call 911 or have someone take you to the nearest emergency room immediately. If possible, wear a facemask. Additional guidance from the CDC for patients who tested POSITIVE for COVID-19 How to isolate: Isolate yourself in a specific room at home and limit your contact with others. Use a separate bathroom from other members of the household, when possible. Leave home only to get essential medical care. Do not go to work, school or public areas. Avoid using public transportation, ride-sharing, or taxis. Restrict contact with pets and other animals. If you must care for your pet or be around animals while you are sick, wash your hands before and after your interaction and wear a facemask. Make sure that shared spaces in the home have good airflow, such as by an air conditioner or an opened window, weather permitting. Personal Hygiene Procedures: Wear a face mask when in the same room as other people or pets. If a face mask interferes with your breathing, others should wear a mask when sharing space with you. Frequent hand-washing: wash your hands with soap and water for at least 20 seconds. If soap and water are not available, use alcohol-based hand embedded software test engineer. Avoid touching your eyes, nose, and mouth with unwashed hands. Household Hygiene Procedures: Avoid sharing personal household items such as dishes, glassware, cups, eating utensils, towels or bedding with other people or pets in your home. After use, these items should be washed with soap and hot water. Disinfect all high-touch surfaces every day with antibacterial cleaning solutions such as Lysol wipes, bleach, cleansers, etc. High-touch surfaces include tabletops, doorknobs, bathroom fixtures, toilets, phones, keyboards, tablets and bedside tables. Immediately clean any surfaces that may have blood, poop or body fluids on them, using antibacterial cleaning solutions such as Lysol wipes, bleach, cleansers, etc. If clothing or bedding come into contact with blood, poop or body fluids, they should be washed immediately. Follow the directions on the laundry detergent and clothing labels but hot water is recommended when possible. Stopping home isolation precautions: If possible, consult your doctor before stopping home isolation precautions. According to the CDC, you can discontinue home isolation precautions when you have met both of these criteria: Your fever and respiratory symptoms have been gone for 24 hours without the use of any medicines like ibuprofen (Motrin) and acetaminophen (Tylenol). It has been at least 10 days since your symptoms first appeared. If you are immunosuppressed OR you were admitted to the hospital for this, you should wait until it has been 14 days since your symptoms first appeared. Guidelines for Those Living With and/or Caring For Persons with COVID-19: Read and follow all the recommendations outlined in this handout. Do not permit visitors in the home unless there is an essential need. Wear a facemask when in the same room as the patient. Wear a facemask and gloves (disposable if available) when you touch or have contact with the patient's blood, poop, or body fluids including saliva, phlegm, nasal mucus, vomit or urine. Clean or throw away facemasks and gloves after use and wash your hands with soap and water. You will need to quarantine (stay away from others) for 14 days after your last contact with your family member with COVID-19. The person with COVID-19 is considered contagious 48 hours prior to symptoms beginning (or starting with the day of the positive test if they have no symptoms) for a total of 10 days. Additional resources: [facility] COVID Hotline at 6-716-6LQHZYZ ( ). COVID-19 Careline at (available 24 hours per day, seven days a week if you or a loved one is experiencing anxiety related to the coronavirus pandemic). Clinical research opportunities: is conducting research studies to develop better testing and treatments for COVID. Do you want any information on how to participate Call [phone]. Websites: hospitals.org or www.CDC.gov Follow My Health / My [facility] (for other test results): Revised 02/22/2020 Electronic Signatures: Adelia Delvalle (ADMIN) (Signature pending) Authored Last Updated: 18-Apr-2020 16:12 by Adelia [employer] (ADMIN) Normal [facility] CORONAVIRUS 2019 BY PCRon Lab Specimen Source Nasal, Nasopharyngeal Normal [facility] Comment on above: Performed By: #### C OV19 #### [facility] [address] [place] [address] ANES Nicole 01-26-2018 ANES POST HNO ID: [id number] thor: Julianne Mooney: AnesthesiologyAuthor Type: AnesthesiologistType: Anesthesia PostOpFiled: 01/26/2018 4:56 PMNote Text:POST ANESTHESIA EVALUATION NOTESERVICE DATE: 01/26/2018SERVICE TIME: 4:56 PMDOB: 1960Vitals: 01/27/1816Temp: 36.7 ?C (98 ?F) 36.6 ?C (97.9 ?F) 01/27/1816BP: 133/96 125/94 115/82 116/77 01/27/1816Pulse: 99 96 90 87 01/27/1816Resp: 20 14 18 18 01/27/1816SpO2: 92% 92% 92% 96%Validated Vital Signs: YesPOST ANES STATUS: No apparent anesthetic complications. The patient isappropriately hydrated with stable respiratory and cardiovascular status.Patient has safe and adequate airway control. The patient has appropriatepain relief and no significant post operative nausea or vomiting. Thepatient has achieved baseline mental status.Intra-Operative Events: No Significant Anesthesia EventsFurther assessment by Anesthesia Service: NoneOther Remarks:SIGNATURE: Julianne Zelaya MD PATIENT NAME: Grey AlonzoDATE: January 26, 2018 : 4:56 PM PAGER/CONTACT #: [phone] [facility] ANES PREOPon 01-26-2018 ANES PREOP HNO ID: [id number] thor: Julianne ZelayaService: AnesthesiologyAuthor Type: AnesthesiologistType: Anesthesia PreOpFiled: 01/26/2018 12:35 PMNote Text: ANESTHESIOLOGY DAY OF SURGERY NOTESERVICE DATE: 01/26/2018SERVICE TIME: 12:34 PMDOB: 2Procedure(s) (LRB):SUTURE OF HAMSTRING MUSCLE RUPTURE PRIMARY (Left)Surgeon(s):Tennille RosneckAhmad (Fel) BayomyEstimated body mass index is 32.19 kg/m? as calculated from the following: Height as of this encounter: 175.3 cm (5' 9). Weight as of this encounter: 98.9 kg (218 lb).Most recent hematocrit and potassium results:Hematocrit 43.6 01/22/2018Potassium 4.6 01/22/2018ANES DOS/PREOP NOTE:Vitals: 137BP: 135/86Pulse: 99Resp: 18Temp: 36.7 ?C (98 ?F)SpO2: 97%Weight: 98.9 kg (218 lb)Height: 175.3 cm (5' 9)ACTIVE PROBLEM LISTElbow ArthritisUlnar NeuritisUlnar Nerve EntrapmentCervical RadiculopathyCervicalgiaLeft Proximal Hamstring Tendon RuptureRupture of Left Proximal Hamstring TendonHamstring Tendon RuptureEssential HypertensionDifficult IntubationPAST MEDICAL HISTORYDiagnosis Date- Elbow disorder right Ulner nerve entrapment/bone spurs- Hay fever- Hearing deficit right ear- Hypertension- Neck painPAST SURGICAL HISTORYProcedure Laterality Date- KNEE SURGERY HX Left- PAST SURGICAL HISTORY OF 4-12 right elbow- PAST SURGICAL HISTORY OF 1997 right elbow- PAST SURGICAL HISTORY OF 2014 C SPINEFAMILY HISTORYProblem Relation Age of Onset- Headache Mother- Hypertension Mother- Alcohol/Drug Father- Allergies Father pen/sulfa- Diabetes Father- Heart Father- Thyroid Father- Cancer Brother espohageal- Cancer Maternal Grandfather esophagealSocial History:Social HistorySubstance Use Topics- Smoking status: Never Smoker- Smokeless tobacco: Former User Quit date: 02/23/2014- Alcohol use NoNo current facility-administered medications on file prior to encounter.Current Outpatient Prescriptions on File Prior to Encounter:chlorthalidone (HYGROTON) 25 mg tablet Take 25 mg by mouth once daily.lisinopril (ZESTRIL, PRINIVIL) 10 mg tablet Take 10 mg by mouth oncedaily.Current Facility-Administered Medications:lactated ringers infusion 5-30 mL/hr INTRAVENOUS CONTINUOUS Marshapilar Lew (Pa) Last Rate: 30 mL/hr at 01/26/18 1205 30 mL/hr at 01/26/18 1205ceFAZolin iv piggyback 2 g in D5W (iso-osmotic) 100 mL (ANCEF) 2 gINTRAVENOUS Pre-Op Once Marsha Weiss (Gibran) Banjacacetaminophen 1,000 mg tab(s) (TYLENOL) 1,000 mg ORAL Pre-Op Once JulianneEskildsendiazePAM 5 mg tab(s) (VALIUM) 5 mg ORAL Pre-Op Once Julianne Zelayapregabalin 75 mg cap(s) (LYRICA) 75 mg ORAL ONCE Julianne ZelayaAllergies: ALLERGIESNo Known AllergiesDOS EXAM: Adequate NPO status: YesAnesthetic risks, benefits, alternatives, personnel and consent discussed:YesPatient agrees to proceed: YesPrevious Anesthesia: No history of adverse event.Airway Assessment: MP 2; Neck ROM: Full ROM without neurologic symptoms;Airway Evaluation: No significant abnormalitiesSymptoms of Sleep Apnea: NoneDentition: Teeth intact. THICK DUNBAR.Additional Physical Exam:Lungs: Lungs clear to auscultation. Good diaphragmatic excursion.Cardiac: normal S1 and S2; no rubs, no murmurs, and no gallopsAdditional Pertinent Findings: N/ABlood Products: Not anticipated for this procedure.Anesthetic Plan: General, Standard ASA MonitorsPain Management Plan: Parenteral or OralASA Class: 2Other Medical Problems: NoneChronic Beta Shannan medication administered within 24 hours: N/AI have interviewed and examined the patient. I have reviewed the medicalrecord and/or the pre-anesthesia evaluation, pertinent labs, and testresults.Significant changes in the patient's condition since the History andPhysical, not otherwise documented in primary service progress notes: NoThis contains updated information obtained within 48 hours ofSurgery/Procedure.SIGNATURE : Julianne Zelaya MD PATIENT NAME: Grey Weiss GrillsDATE: January 26, 2018 : 12:34 PM CSN: [id number] [facility] BRIEF OP NOTon 01-26-2018 BRIEF OP NOT HNO ID: [id number] thor: Marychuy Beltre (Fel)omyService: Orthopaedic SurgeryAuthor Type: FellowType: Brief Op NoteFiled: 01/26/2018 4:00 PMNote Text:BRIEF OP NOTELOG ID: [id number]/Procedure Date: 01/26/2018Incision/Procedure Start Time: 2:27 PMIncision Close/Procedure End Time: 3:50 PMSurgeon(s)/Proceduralist(s) and Director Mobile(s):Surgeon(s) and Role: * Tennille Colbert - Primary * Marychuy Chou (Fel) - FellowGIBRAN Hidalgo-CProcedure(s): Left open proximal hamstring tendon repairAnesthesia: GeneralFindings: Retracted 3-tendon proximal avulsionEstimated Blood Loss: 30 mlsSpecimens: NoneComplications: NonePre-Op/Pre-Procedure Diagnosis: Rupture of left proximal hamstring tendon,initial encounter [S76.312A]Hamstring tendon rupture [S76.319A]Post-Op/Post-Proced ure Diagnosis: Rupture of left proximal hamstringtendon, initial encounter [S76.312A]Hamstring tendon rupture [S76.319A]PLAN:-Home from PACU when criteria tvo-Igkhk-bkuad oral pain regimen-NWB to LLE, hinged knee brace in 70deg flexion-Exchange dressing at 7 days-Follow up in 2 weeks for wound evaluationsSIGNATURE: Marychuy Chou MD PATIENT NAME: Grey AlonzoDATE: January 26, 2018 : 3:57 PM PAGER/CONTACT #: [facility] OPERATIVE NOon 01-26-2018 OPERATIVE NO HNO ID: [id number] thor: Tennille ColbertServincenzoe: Orthopaedic SurgeryAuthor Type: PhysicianType: Operative ReportFiled: 01/31/2018 10:45 AMNote Text:[facility] - Operative ReportGREY ALONZO LDOB: [birth year]AGE: 57.SEX: MMRN: [id number] TYPE: [facility] SVC: ORORLOCATION: [id number] PHYSICIAN: ARTEM Capps NUMBER: [id number] OF SURGERY/PROCEDURE: 01/26/2018INCISION/PROCEDURE START TIME: 1427.INCISION CLOSE/PROCEDURE END TIME: 1540.Please note, the fellow performed portions of the exposure and repairunder my direct guidance.PREOPERATIVE DIAGNOSIS: Left proximal hamstring avulsion.POSTOPERATIVE DIAGNOSIS: Left proximal hamstring avulsion.SURGEON: Tennille Colbert MDASSISTANT:1. Kayleen Corral M.D.2. Clau Lew PA-C.SURGERY/PROCEDURE: Left proximal hamstring repair.ANESTHESIA: generalOPERATIVE INDICATIONS: Pleasant male with left hip injury at work. Noissues prior to this. Exam history and imaging findings were consistentwith a left proximal hamstring avulsion. We discussed surgical andnonsurgical treatment options in this scenario as well as theexpectations, risks, benefits, and alternatives of both pathways. Hevoiced understanding of this and wished to proceed.DESCRIPTION OF PROCEDURE: The patient was brought to [facility], [address] on 01/26/18 after marking the appropriatesurgical extremity in the preoperative holding area. Brought into theoperative suite, placed on the operative table, induced under generalanesthesia. Placed in a prone position. Care was taken to pad all bonyprominences. The left lower extremity was then prepped and draped in theusual sterile fashion.After appropriate surgical time-out including all members of the surgicalteam, confirming the site and extremity, ensuring reception centre manager of 2 g IVAncef, an approximate 8-cm incision was made in the gluteal crease.Dissection was taken down to the gluteus susan fibers distally which atthe distal edge were then retracted proximally. The fascia over thehamstring was identified. We then exposed the ischium and the fasciallayer was incised. The patient was identified and the empty wall waspalpated. We then slowly dissected distally in line with the ischium andexposed the retracted 3 tendon hamstring tear. This was then mobilized.All adhesions medially and laterally were bluntly dissected. The sciaticnerve was palpated lateral to the fascia layer and protected during thecourse of the procedure. Once the tendon was freed up, the ischium wasthen prepared making a nice bleeding bed to accept 2 Mitek Super Quickanchors. Two limbs from each anchor were then run distally in the tendonin a Krackow fashion. Two mattresses more proximally with thecorresponding limbs with the knee in 90 degrees of flexion after copiousirrigation. The sutures were sequentially tied reducing the hamstringtendon onto the ischial bone in a very stable fashion. On completion ofthe knot tying, the knee was then taken to near full extension prior toany tension on the repair. At this point, the sciatic nerve was againpalpated. Copious irrigation was performed. There was no obviousbleeding. Layered closure was then performed with two 2-0 Vicryl,followed by running subcuticular Monocryl. Sterile dressing was placed.The patient was then awakened from general anesthesia and taken to PACU instable condition.COMPLICATIONS: None.SPECIMENS: None.FLUIDS: See anesthesia record.ZAC CappsR:[id number] #: [id number]: 01/26/2018 15:36:07 cc: [facility] PT EDon 01-26-2018 PT ED HNO ID: [id number] thor: Julienne Valenzuela) MARCIAL Patelervice: NursingAuthor Type: Registered NurseType: Patient EducationFiled: 01/26/2018 5:12 PMNote Text:POST OP LEARNING RESPONSEINSTRUCTION PROVIDED TO: Patient and family memberMETHOD OF INSTRUCTION: Written instruction - handoutsVerbal instructionPATIENT / FAMILY RESPONSE: Verbalizes understanding of: OEDC-ELYXWUVFDFVSGVUXAPCYA-Uc rrect actions to take to reduce postoperative complicationsFOLLOW-UP PLAN: Patient instructed to call with any further issuesSUPPLEMENTAL MATERIAL: NoneREFERRAL (RECOMMENDATION): NoneElectronically Signed By: Julienne Patel RN In Department: [facility] SURGERY - [facility] PT ED HNO ID: [id number] thor: MARCIAL Murry Rnervice: NursingAuthor Type: Registered NurseType: Patient EducationFiled: 01/26/2018 12:26 PMNote Text:PRE OP LEARNING ASSESSMENTPROCEDURE/SURGERY: SURGERY: left upper legREADINESS TO LEARNCOGNITIVE ABILITY: Alert and orientedMOTIVATION TO LEARN: EagerInterestedFAMILY SUPPORT: High - Very involved in pt carePATIENT LEARNS BEST BY: Verbal InstructionFACTORS AFFECTING LEARNING: NonePHYSICAL LIMITATIONS AFFECTING LEARNING: NoneElectronically Signed By: Josiane Eubanks RN In Department: [facility] SURGERY - [facility] NURSING PROGon 01-23-2018 Protein mass conc HNO ID: [id number] thor: Aletha TejedaRn) Artim, RNService: (none)Author Type: Registered NurseType: Nursing Progress NoteFiled: 01/23/2018 7:28 AMNote Text:PACC Nurse Progress NoteHistory AND Physical:PACC Visit Date: 01/22/18Original HANDP Date: N/AED visit Date: N/AOutside HANDP Scanned Date: N/ALabs Within Last 6 Months:CBC: Date 01/22/18 -within acceptable limits per anesthesia guidelines forplanned procedure.BMP/CMP: Date 01/22/18 -WNLImaging Within Last 12 Months:MRIX-ray- See chartCardiac Testing:EKG in last 12 Months: 01/22/18 - pendingBMI Percentile (PEDS):N/ARisk Assessment:N/AAnesthesia Review:N/ANarrative:N/APre-op Considerations:h/o Difficult intubation - email sent to Dr Mariano Das and OK to proceedat [facility]/o cervical spine surgery- good ROMAnesthesia Consult difficult airway Email sent to Dr Mariano Das- TATA toproceed at [facility] (as noted in HANDP)Chart Check:Fina Nolasco RNOctober 2017 7:26 AM [facility] HOSPon 01-21-2018 HOSP Patient:Estrada Alonzo LMRN: Height:5' 9(1.753 m)Weight:222 lb (100.699 kg)Outpatient Medications as of 01/26/18:aspirin, enteric coated (ADULT LOW DOSE ASPIRIN) 81 mg EC tabletoxyCODONE IR (ROXICODONE) 5 mg immediate release tabletacetaminophen (ACETAMINOPHEN EXTRA STRENGTH) 500 mg tabletibuprofen (MOTRIN) 600 mg tabletondansetron orally disintegrating (ZOFRAN ODT) 4 mg disintegrating tabletcyclobenzaprine (FLEXERIL) 5 mg tabletchlorthalidone (HYGROTON) 25 mg tabletlisinopril (ZESTRIL, PRINIVIL) 10 mg tabletAdmission/Clinic Administered Medications as of 01/26/18:lactated ringers infusionceFAZolin iv piggyback 2 g in D5W (iso-osmotic) 100 mL (ANCEF)Problem List: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]Ulnar neuritis [G56.20]Ulnar nerve entrapment [G56.20]Cervical radiculopathy [M54.12]Cervicalgia [M54.2]Left proximal hamstring tendon rupture [S76.312A]Rupture of left proximal hamstring tendon [S76.312A]Hamstring tendon rupture [S76.319A]Essential hypertension [I10]Difficult intubation [T88.4XXA]Allergies:No Known AllergiesDate Verified:01/26/18Lab ValuesLab Value Units Date High LowPOTA* 4.6 mmol/L 01/22/2018 5.1 3.7HEMA* 43.6 % 01/22/2018 51.0 39.0Progress Notes ([facility] [address]):Remedios Garcia RN, RN 01/21/2018 9:59 AM SignedORTHO CARE COORDINATION QUICK NOTEPatient has been identified by name and date of : YesCalled and spoke to patient.Confirmed surgery date of 01/26/2018.Advised he will need PAT. E-mail sent to PACC to contact him and schedule thesame.Episode/ orders created and routed.Pre op instructions sent via [employer].Staff message sent to [facility] Forms pool to create and submit C9(s) for thefollowin.) Diagnosis of Left proximal hamstring tendon rupture (if not already onclaim) - S76.312A2.) Pre admission testing and medical clearance3.) Crutches and crutch training4.) Proximal hamstring repair - CPT 752247.) Post op PT, 1-2 x's a week for 8-12 weeksSrikanth Ruvalcaba RN, RN 01/21/2018 10:45 AM SignedORTHO CARE COORDINATION QUICK NOTEPatient has been identified by name and date of : NoC9s stamped and faxed back to [facility].Copies will be uploaded to chart.Remedios Garcia RNProgress Notes ([facility] [address]):Tennille Colbert MD 01/20/2018 6:16 PM SignedDEPARTMENT OF ORTHOPAEDICSOctober 2017CC: left posterior thigh painHPI: Patient presents with a one-month history of left posterior thigh pain.Was at work and was moving a manhole cover twisted to move it and felt a popposteriorly. He subsequently developed bruising over the next few days that wassignificant all the way down to his foot. He currently denies any nerve typesymptoms. His pain is improving. He's able ambulate. He is not back to workyet. The injury happened on December 24, 2017. He denies any pain is buttockregion her hamstring prior.PAIN EVALUATION 01/20/2018 Pain Score: 5 Pain Location: - left hamstring Description: Aching Duration Amount of Time: - since 12/24/2017 Frequency: Continuous Intervention: Medication;Reposition;Relaxat ion;Cold;Exercise;Therapeutic techniques-CPRPPast Medical History:PAST MEDICAL HISTORYDiagnosis Date- Elbow disorder right Ulner nerve entrapment/bone spurs- Hay fever- Hearing deficit right ear- Hypertension- Neck painFamily History:FAMILY HISTORYProblem Relation Age of Onset- Headache Mother- Hypertension Mother- Alcohol/Drug Father- Allergies Father pen/sulfa- Diabetes Father- Heart Father- Thyroid Father- Cancer Brother espohageal- Cancer Maternal Grandfather esophagealSocial History:Medications:chlorthal idone (HYGROTON) 25 mg tablet Take 25 mg by mouth once daily.lisinopril (ZESTRIL, PRINIVIL) 10 mg tablet Take 10 mg by mouth once daily.hydroCHLOROthiazide (HYDRODIURIL, ESIDRIX) 25 mg tablet Take 25 mg by mouth oncedaily.Allergies: ALLERGIESNo Known AllergiesPhysical Exam: Physical exam reveals hip flexion 110? bilaterally internalrotation is 20 external rotation is 70? bilaterally. His negative Fabere testbilaterally. He has an 80? popliteal angle on the right 60? on the left.History leg raise that is less painful on the left compared to the right. Hehas tenderness palpation over the issue him on the left negative on the right.His ecchymosis is resolving. He is neurovascularly intact throughout both lowerextremities with 5 out of 5 dorsiflexion plantar flexion and EHL. He has 4+ outof 5 strength with resisted knee flexion 90 and 45? on the left 5/5 on theright. There is visible David muscle on the left of the hamstringReview of Systems:GENERAL: No weight loss, malaise or feversMUSCULOSKELETAL: See HPIImaging: MRI is reviewed and reveals full-thickness proximal hamstring avulsionwith large hematomaAssessment/Plan: Left proximal hamstring avulsionPlan for patient is discussed expectations reviewed. Surgical and nonsurgicaltreatment options are discussed. Given his activity level would recommendsurgical fixation. We discussed the expectations risks benefits andalternatives of surgical versus nonsurgical treatment options. He voicedunderstanding us wishes to proceed surgically. We'll get this set up for him inthe near future as our schedules intersect. All questions answered.Chayo Capps note was partially generated using [employer] voice recognition system, andthere may be some incorrect words, spellings, and punctuation that were notnoted in checking the note before saving. [facility] Vital Signs Date Time Vital Sign Value Performing Clinician Facility 05-20-2024 08:55-0500 Body height 175.3 cm Megan Rad PA-C Work Phone: [facility] 05-20-2024 08:55-0500 Body mass index (BMI) [Ratio] 36.59 kg/m2 Megan Rad PA-C Work Phone: [facility] 05-20-2024 08:55-0500 Body temperature 97.9 [degF] Megan Rad PA-C Work Phone: [facility] 05-20-2024 08:55-0500 Body weight 112.4 kg Megan Rad PA-C Work Phone: [facility] 05-20-2024 08:55-0500 Diastolic blood pressure 91 mm[Hg] Megan Rad PA-C Work Phone: [facility] 05-20-2024 08:55-0500 Heart rate 89 /min Megan Rad PA-C Work Phone: [facility] 05-20-2024 08:55-0500 Respiratory rate 18 /min Megan Rad PA-C Work Phone: [facility] 05-20-2024 08:55-0500 SaO2% (BldA) [Mass fraction] 95 % Megan Rad PA-C Work Phone: [facility] 05-20-2024 08:55-0500 Systolic blood pressure 127 mm[Hg] Megan Leroy PA-C Work Phone: [facility] 03-19-2023 19:34-0500 Body height 170.18 cm [facility] 03-19-2023 19:34-0500 Body mass index (BMI) [Ratio] 37.5 kg/m2 [facility] 03-19-2023 19:34-0500 Body temperature 98.1 [degF] [facility] 03-19-2023 19:34-0500 Body weight 108.86 kg [facility] 03-19-2023 19:34-0500 Diastolic blood pressure 60 mm[Hg] [facility] 03-19-2023 19:34-0500 Heart rate 92 /min [facility] 03-19-2023 19:34-0500 Respiratory rate 18 /min [facility] 03-19-2023 19:34-0500 SaO2% (BldA) [Mass fraction] 92 % [facility] 03-19-2023 19:34-0500 Systolic blood pressure 101 mm[Hg] [facility] 12-17-2021 19:30-0400 Body height 170.18 cm [facility] Work Phone: 12-17-2021 19:30-0400 Body mass index (BMI) [Ratio] 36.9 kg/m2 [facility] Work Phone: 12-17-2021 19:30-0400 Body temperature 97.9 [degF] [facility] Work Phone: 12-17-2021 19:30-0400 Body weight 107.04 kg [facility] Work Phone: 12-17-2021 19:30-0400 Diastolic blood pressure 70 mm[Hg] [facility] Work Phone: 12-17-2021 19:30-0400 Heart rate 92 /min [facility] Work Phone: 12-17-2021 19:30-0400 Respiratory rate 18 /min [facility] Work Phone: 12-17-2021 19:30-0400 SaO2% (BldA) [Mass fraction] 96 % [facility] Work Phone: 12-17-2021 19:30-0400 Systolic blood pressure 112 mm[Hg] [facility] Work Phone: Encounters Encounter Date Encounter Type Care Provider Facility Start: 09-13-2024 End: 09-13-2024 Patient encounter procedure Sravani Allen PA-C Work Phone: Orthopaedics Comment on above: Chronic pain of left knee (Primary Dx); Pseudogout; Primary osteoarthritis of left knee Start: 09-13-2024 End: 09-13-2024 ambulatory SRAVANI ALLEN Facility:[facility] Start: 07-22-2024 End: 07-22-2024 Emergency department patient visit DMITRI BOSTON Facility:[facility] Start: 06-11-2024 End: 06-11-2024 ambulatory SRAVANI ALLEN Facility:[facility] Start: 06-11-2024 End: 06-11-2024 Patient encounter procedure Sravani Allen PA-C Work Phone: Orthopaedics Comment on above: Chronic pain of left knee (Primary Dx); Pseudogout Start: 05-28-2024 End: 05-28-2024 ambulatory CASSANDRA SULLIVAN Facility:[facility] Start: 05-28-2024 End: 05-28-2024 Patient encounter procedure Cassandra Sullivan DO Work Phone: Orthopaedics Comment on above: Chronic pain of left knee (Primary Dx); Pseudogout Start: 05-20-2024 End: 05-20-2024 Office outpatient new 30 minutes Megan Leroy PA-C Work Phone: [facility] Comment on above: Viral URI (Primary D x); Sore throat; Pharyngitis, unspecified etiology; Dysfunction of both eustachian tubes Start: 02-27-2024 End: 02-27-2024 ambulatory CASSANDRA SULLIVAN Facility:[facility] Start: 02-27-2024 End: 02-27-2024 Patient encounter procedure Cassandra Argueta Laurie DO Work Phone: Orthopaedics Comment on above: Chronic pain of left knee (Primary Dx); Pseudogout Start: 10-31-2023 End: 10-31-2023 Patient encounter procedure Cassandra Argueta Laurie DO Work Phone: Orthopaedics Comment on above: Chronic pain of left knee (Primary Dx); Pseudogout Start: 10-31-2023 End: 10-31-2023 ambulatory DMITRI BOSTON Facility:[facility] Start: 10-31-2023 End: 10-31-2023 Subsequent hospital visit by physician [facility] Work Phone: Radiology Comment on above: Left knee pain, unsp ecified chronicity [M25.562] Start: 10-21-2023 Orders Only Cassandra Argueta Wilbert conklin DO Work Phone: Orthopaedics Comment on above: Left knee pain, unsp ecified chronicity (Primary Dx) Start: 03-19-2023 End: 03-19-2023 Patient encounter procedure [facility] Specimen Work Phone: Start: 03-19-2023 End: 03-20-2023 ambulatory Dmitri [place] CAKE STRIPPER Facility:[facility] Start: 03-01-2022 Refill Rohit light MD Work Phone: Ophthalmology Comment on above: Refill Request Start: 02-15-2022 End: 02-15-2022 Patient encounter procedure Matilde Aiken OD Work Phone: Ophthalmology Comment on above: Dry eye syndrome, bi lateral (Primary Dx); Meibomian gland dysfunction (MGD) of upper and lower lids of both eyes; Combined form of senile cataract of both eyes; Floaters, bilateral Start: 12-17-2021 End: 12-17-2021 ambulatory [facility] Work Phone: Start: 12-17-2021 End: 12-17-2021 Patient encounter procedure [facility], Specimen Start: 07-20-2018 End: 07-21-2018 Patient encounter procedure BENNETT Danielle [facility] Start: 07-17-2018 End: 07-17-2018 Patient encounter procedure BENNETT Santos [facility] Start: 07-06-2018 End: 07-07-2018 Patient encounter procedure BENNETT Santos [facility] Start: 06-26-2018 End: 06-26-2018 Patient encounter procedure BENNETT Danielle [facility] Start: 06-19-2018 End: 06-19-2018 Patient encounter procedure BENNETT Danielle [facility] Start: 05-29-2018 End: 05-29-2018 Patient encounter procedure BENNETT Santos [facility] Start: 05-19-2018 End: 05-19-2018 Patient encounter procedure BENNETT Danielle [facility] Start: 05-13-2018 End: 05-13-2018 Patient encounter procedure BENNETT Santos [facility] Start: 05-08-2018 End: 05-08-2018 Patient encounter procedure BENNETT Danielle [facility] Start: 04-28-2018 End: 04-28-2018 Patient encounter procedure BENNETT Danielle [facility] Start: 04-24-2018 End: 04-24-2018 Patient encounter procedure BENNETT Santos [facility] Start: 04-17-2018 End: 04-17-2018 Patient encounter procedure BENNETT Santos [facility] Start: 03-20-2018 End: 03-20-2018 Patient encounter procedure BENNETT Santos [facility] Start: 03-09-2018 End: 03-09-2018 Patient encounter procedure BENNETT Santos [facility] Start: 03-03-2018 End: 03-03-2018 Patient encounter procedure BENNETT Santos [facility] Start: 02-23-2018 End: 02-23-2018 Patient encounter procedure BENNETT Santos [facility] Start: 02-20-2018 End: 02-20-2018 Patient encounter procedure BENNETT Santos [facility] Start: 02-13-2018 End: 02-13-2018 Patient encounter procedure BENNETT Santos [facility] Start: 02-09-2018 End: 02-09-2018 Patient encounter procedure BENNETT Santos [facility] Start: 01-26-2018 End: 01-26-2018 Patient encounter [facility] Start: 01-19-2018 End: 01-19-2018 Patient encounter procedure BENNETT MAIN [facility] Start: 01-16-2018 End: 01-16-2018 Patient encounter procedure BENNETT Santos [facility] Procedures Date Procedure Procedure Detail Performing Clinician Start: 09-13-2024 Arthrocentesis aspir &/inj major jt/bursa w/o us Sravani Allen PA-C Work Phone: Start: 06-11-2024 Arthrocentesis aspir &/inj major jt/bursa w/o us Sravani Allen PA-C Work Phone: Start: 05-28-2024 Arthrocentesis aspir &/inj major jt/bursa w/o us Cassandra Sullivan DO Work Phone: Start: 05-20-2024 Iaadiadoo streptococ cus group a Megan Leroy PA-C Work Phone: Start: 02-27-2024 Arthrocentesis aspir &/inj major jt/bursa w/o us Cassandra Sullivan DO Work Phone: Start: 10-31-2023 Cell count misc body fluids w/differential count Cassandra Sullivan DO Work Phone: Start: 10-31-2023 SYNOVIAL FL,CRYSTAL ID/STAFF REV Cassandra Sullivan DO Work Phone: Start: 10-31-2023 SYNOVIAL FLUID MANUAL DIFF Cassandra Sullivan DO Work Phone: Start: 10-31-2023 Arthrocentesis aspir &/inj major jt/bursa w/o us Cassandra Sullivan DO Work Phone: Start: 10-31-2023 Radiologic exam knee complete 4/more views Sravani Allen PA-C Work Phone: Start: 04-17-2020 Follow-up visit Plan of Treatment Date Care Activity Detail Author Start: 2036 RSV High Risk: (Elde rly (60+) or Population) (1 - 1-dose 75+ series) RSV High Risk: (Elderly (60+) or Population) (1 - 1-dose 75+ series) [facility] Start: 11-06-2028 DTaP/Tdap/Td Vaccine s (2 - Td or Tdap) DTaP/Tdap/Td Vaccines (2 - Td or Tdap) [facility] Start: 11-06-2028 Urine microalbumin profile [facility] Start: 07-23-2027 Diabetes Screening [facility] Start: 03-18-2026 Diabetes Screening Diabetes Screenin [facility] Start: 12-17-2024 End: 12-17-2024 Patient encounter procedure 12/17/2024 8:00 AM EDT Office Visit Orthopaedics [address] [address] Sravani Allen PA-C [address] [place] [address] Left knee CSI (Last CSI 09/13/2024) Orthopaedics Comment on above: Left knee CSI (Last CSI 09/13/2024) Start: 12-06-2024 Influenza vaccination Influenz a Vaccine (Season Ended) [facility] Start: 09-10-2024 End: 09-10-2024 Patient encounter procedure 09/10/2024 8:00 AM EDT Office Visit Orthopaedics [address] [address] Sravani Allen PA-C [address] [place] [address] left knee cortisone inj/aspiration Orthopaedics Comment on above: left knee cortisone inj/aspiration Start: 06-11-2024 End: 06-11-2024 Patient encounter procedure 06/11/2024 7:45 AM EST Office Visit Orthopaedics [address] [address] Sravani Allen PA-C [address] [place] [address] left knee cortisone inj Orthopaedics Comment on above: left knee cortisone inj Start: 05-28-2024 End: 05-28-2024 Patient encounter procedure 05/28/2024 9:00 AM EST Office Visit Orthopaedics [address] [address] Cassandra Sullivan DO [address] [place], [place] [address] left knee cortisone inj Orthopaedics Comment on above: left knee cortisone inj Start: 02-27-2024 End: 02-27-2024 Patient encounter procedure 02/27/2024 9:30 AM EST Office Visit Orthopaedics [address] [address] Cassandra Sullivan DO [address] [place] [address] left knee cortisone inj Orthopaedics Comment on above: left knee cortisone inj Start: 12-07-2023 COVID-19 Vaccine ( season) COVID-19 Vaccine ( season) [facility] Start: 12-07-2023 Influenza vaccination Influenza Vacc ine (#1) [facility] Start: 10-31-2023 End: 10-31-2023 Patient encounter procedure Radiology Comment on above: left knee pain Start: 04-07-2023 Behavioral Health Screening Behavioral Health Screening [facility] Start: 12-06-2022 Covid-19 Vaccine ( season) Covid-19 Vaccine ( season) [facility] Start: 12-06-2021 Influenza vaccination INFLUENZA (#1) [facility] Start: 2021 RSV Vaccine (1 - 1-d ose 60+ series) RSV Vaccine (1 - 1-dose 60+ series) [facility] Start: 2021 RSV Vaccine (1 - Ris k 60-74 years 1-dose series) RSV Vaccine (1 - Risk 60-74 years 1-dose series) [facility] Start: 04-07-2021 DEPRESSION ASSESSMENT DEPRESSION ASS ESSMENT [facility] Start: 01-22-2021 DIABETES SCREEN DIABETES SCREEN [facility] Start: 2016 PROSTATE CANCER SCREENING DISCUSSION PROSTATE CANCER SCREENING DISCUSSION [facility] Start: 2016 Prostate specific antigen measurement Prostate Cancer Screening Discussion [facility] Start: 10-23-2011 Pneumococcal vaccination Pneum ococcal Vaccine (1 of 1 - PCV) [facility] Start: 10-23-2011 Shingrix Vaccine (1 of 2) Shingrix Vaccine (1 of 2) [facility] Start: 10-23-2011 Zoster Vaccines (1 of 2) Zoste r Vaccines (1 of 2) [facility] Start: 2006 COLOGUARD (FIT-DNA) COLOGUARD (FIT-D NA) [facility] Start: 2006 Colonoscopy COLONOSCOPY [facility] Start: 2006 COLORECTAL CANCER SCREENING COLORECTAL CANCER SCREENING [facility] Start: [address] COLONOGRAPHY [facility] Start: 2006 FECAL OCCULT BLOOD FECAL OCCULT BLOO D [facility] Start: 2006 Prostate specific antigen measurement Prostate Cancer Screening Discussion [facility] Start: 2006 Screening for malign ant neoplasm of colon [facility] Start: 2006 SIGMOIDOSCOPY SIGMOIDOSCOPY [facility] Start: 1996 Lipid panel Lipid Screening [place] Start: 1996 LIPID SCREEN LIPID SCREEN [facility] Start: 1980 Pneumococcal Vaccine : 50+ (1 of 2 - PCV) Pneumococcal Vaccine: 50+ (1 of 2 - PCV) [facility] Start: 1980 SHINGRIX VACCINE (1 of 2) SHINGRIX VACCINE (1 of 2) [facility] Start: 10-23-1979 ANNUAL PCP TEAM DEVELOPMENT SPECIALIST JACIEL DISEASE VISIT ANNUAL PCP TEAM CHRONIC DISEASE VISIT [facility] Start: 10-23-1979 Anxiety Screening Anxiety Screening [facility] Start: 10-23-1979 BP CONTROLLED (<130/80) BP CONTROLLE D (<130/80) [facility] Start: 10-23-1979 Depression Screening Depression Scre ening [facility] Start: 10-23-1979 HEPATITIS C SCREENING HEPATITIS C [facility] Start: 10-23-1979 Hepatitis C screening Hepatitis C [facility] Start: 10-23-1979 HIV SCREENING HIV SCREENING [facility] Start: 10-23-1979 HIV screening HIV Screening [facility] Start: 10-23-1967 PNEUMOCOCCAL (1 - PCV) PNEUMOCOCCAL (1 - PCV) [facility] Start: 10-23-1967 Pneumococcal vaccination Pneum ococcal Vaccine (1 of 2 - PCV) [facility] Start: 1966 Covid-19 Vaccine (#1) Covid-19 Vacci ne (#1) [facility] Start: 1962 MMR Vaccines (1 of 1 - Standard series) MMR Vaccines (1 of 1 - Standard series) [facility] Start: 04-24-1962 COVID-19 VACCINE (#1) COVID-19 VACCI NE (#1) [facility] Start: 1961 HIV screening HIV Screening [facility] Start: 1961 Lipid panel Lipid Panel [facility] Start: 1961 Screening for malign ant neoplasm of colon [facility] Start: 1961 Yearly Adult Physical Yearly Adult P hysical [facility] 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 Work Phone: SYNOVIAL FLUID, CHASTITY BRITTANIE ID/PATHOLOGIST INTERPRETATION SYNOVIAL FLUID, CRYSTAL ID/PATHOLOGIST INTERPRETATION Lab Routine Chronic pain of left knee 10/31/2023 8:35 AM EDT [facility] End: 11-19-2024 XR Knee - left 4 Views XR KNEE GENERAL 4V AP BOTH/PA BOTH/LAT/MERC LEFT Radiology Routine Left knee pain, unspecified chronicity 1 Occurrences starting 10/21/2023 until 11/19/2024 [facility] Work Phone: Comment on above: 1 Occurrences starti ng 10/21/2023 until 11/19/2024 [facility] Immunizations Immunization Date Immunization Notes Care Provider Alec xiong 11-06-2018 tetanus toxoid, redu bri diphtheria toxoid, and acellular pertussis vaccine, adsorbed Matilde Gavinomelody OD Work Phone: [facility] Payers Date Payer Category Payer Blue Cross Blue Shie ld Managed Care [facility] Member Subscriber Plan / Payer (Effective 2024-Present) Name: Grey Alonzo Relation to Subscriber: Self Name: Grey Alonzo Payer ID: [id number] (NAIC) Type: Not on file Address: [place] [id number] [place] [id number] 2024 Unknown [id number] 2023 Self-pay [id number] 2022 Blue Cross Blue Shield [id number] 2022 Unknown [id number] 2017 Unknown [id number] Unknown [facility] [id number] Unknown [id number] Social History Date Type Detail [facility] Work Phone: Start: 1960 Sex Assigned At Male [facility] Start: 02-23-2015 End: 10-31-2023 Tobacco smoking status NHIS Never smoked tobacco [facility] Start: 02-23-2015 End: 10-31-2023 Tobacco use and exposure Former smokeless tobacco user [facility] End: 02-23-2014 History of tobacco use User of smokeless tobacco [facility] Start: 02-15-2022 End: 09-13-2024 Alcohol intake Current non-drinker of alcohol (finding) [facility] Start: 1960 Sex Assigned At Not on file [facility] Start: 02-05-2022 End: 02-15-2022 Exposure to SARS-CoV-2 (event) Not sure [facility] Start: 03-18-2023 End: 10-31-2023 History of Social function [facility] Start: 03-18-2023 End: 10-31-2023 Tobacco use panel [facility] PHQ2 Score 0 [facility] History of tobacco use Passive smoker [facility] Work Phone: Start: 05-20-2024 Tobacco use and exposure Smokeless tobacco non-user [facility] Work Phone: Start: 05-20-2024 Alcoholic beverage intake Defer [facility] Work Phone: Start: 05-10-2024 End: 05-20-2024 Exposure to SARS-CoV-2 (event) Unable to assess [facility] Medical Equipment Procedure Code Equipment Code Equipment Origin al Text Equipment Identifier Dates [place] Lupine Wood ture Arthroscopic Soft Tissue Shoulder - [id number] Start: 01-26-2018 Comment on above: Description: SUPER Q UICKANCHOR PLUS [place] Lupine Wood ture Arthroscopic Soft Tissue Shoulder - [id number] Start: 01-26-2018 Comment on above: Description: SUPER Q UICKANCHOR PLUS Clinical Notes 02-15-2022 to 09-13-2024 Sravani Allen PA-C - 09/13/2024 8:36 AM Sravani Fields PA-C - 06/11/2024 8:11 AM Cassandra Desouza DO - 05/28/2024 9:01 AM Dannie Leroy PA-C - 05/20/2024 8:55 AM EST Note Date & Type Note Facility 09-13-2024 Note HNO ID: [id number] Author: SRAVANI ALLEN PA-C Service: ? Author Type: Physician Director Mobile Type: Progress Notes Filed: 09/13/2024 08:38 Note Text: Mr. Grey Alonzo presents today for left knee corticosteroid injection. He has osteoarthritis and has been treated with injections in the past. Large Joint Arthro/Inj: L knee joint 09/13/2024 8:37 AM The procedure site was prepped in the usual sterile fashion. Site: L knee joint Aspirate: 45 mL clear and serous Medications: 12 mg betamethasone acetate-betamethasone sodium phosphate 6 mg/mL Anesthetics: 3 mL lidocaine (PF) 10 mg/mL (1 %) Outcome: Tolerated well, no immediate complications Post-injection instructions were reviewed with the patient and the patient voiced understanding of these instructions. Informed Consent Consent Obtained: Verbal [place] Protocol A moment to CARE was completed. SIGN IN Personnel directly involved with the procedure wore the appropriate PPE. Special Equipment: N/A Patient/Surrogate Stated/Verified: Patient name, Date of , Relevant allergies and Intended procedure TIME OUT Relevant labs, photos, and/or imaging studies have been reviewed. Consent documented and matches the intended procedure. Correct side/site marked and visible. Medications required for procedure verified. No fire risk assessment and interventions applicable. No implant(s) inserted. SIGN OUT No specimen collected. Sravani Allen PA-C [facility] 09-13-2024 History of Present illness Narrative Associated Order(s): Large Joint Arthro/Inj: L knee joint Post-Procedure Diagnose(s): Pseudogout; Primary osteoarthritis of left knee; Chronic pain of left knee Mr. Grey Alonzo presents today for left knee corticosteroid injection. He has osteoarthritis and has been treated with injections in the past. Large Joint Arthro/Inj: L knee joint 09/13/2024 8:37 AM The procedure site was prepped in the usual sterile fashion. Site: L knee joint Aspirate: 45 mL clear and serous Medications: 12 mg betamethasone acetate-betamethasone sodium phosphate 6 mg/mL Anesthetics: 3 mL lidocaine (PF) 10 mg/mL (1 %) Outcome: Tolerated well, no immediate complications Post-injection instructions were reviewed with the patient and the patient voiced understanding of these instructions. Informed Consent Consent Obtained: Verbal [place] Protocol A moment to CARE was completed. SIGN IN Personnel directly involved with the procedure wore the appropriate PPE. Special Equipment: N/A Patient/Surrogate Stated/Verified: Patient name, Date of , Relevant allergies and Intended procedure TIME OUT Relevant labs, photos, and/or imaging studies have been reviewed. Consent documented and matches the intended procedure. Correct side/site marked and visible. Medications required for procedure verified. No fire risk assessment and interventions applicable. No implant(s) inserted. SIGN OUT No specimen collected. Sravani Allen PA-C documented in this encounter [facility] 07-22-2024 Note HNO ID: [id number] Author: KING MERCADO RT([place]) Service: Radiology Author Type: Technologist Type: Progress Notes Filed: 07/22/2024 04:08 Note Text: Radiology Service Progress Note PATIENT NAME: Grey Alozno DATE OF SERVICE: July 22, 2024 TIME: 4:08 AM PATIENT IDENTITY VERIFICATION COMPLETED USING TWO (2) IDENTIFIERS: Name and Date of confirmed by patient verbally. FALL SCREENING: Has the patient had 2 falls in the last year or 1 fall with injury or currently using an Ambulatory Assistive Device (Walker, Cane, Wheelchair, Crutches, etc.)? Emergency Room Patient: Screened in ED PATIENT GENDER DATA: Assigned male at PATIENT RELEVANT IMPLANT DATA REVIEWED: Not Applicable PATIENT PRESENTS WITH AN IMPLANTABLE OR ATTACHED ELEMENTARY ASSISTANT PRINCIPAL: No RADIOLOGY DEPARTMENT: General X-ray: Exam(s) Completed: Chest X-Ray PERIPHERAL IV DATA: Not applicable SIGNED BY: RT Rodolfo([place]) July 22, 2024 4:08 AM [facility] 06-11-2024 Note HNO ID: [id number] Author: SRAVANI ALLEN PA-C Service: ? Author Type: Physician Director Mobile Type: Progress Notes Filed: 06/11/2024 08:14 Note Text: Mr. Grey Alonzo presents today for left knee aspiration and corticosteroid injection. Today he rates his pain a 4 on a scale of 0 to 10. His last injection was 02/27/2024 and his last aspiration was 05/28/2024. Large Joint Arthro/Inj: L knee joint 06/11/2024 8:14 AM The procedure site was prepped in the usual sterile fashion. Site: L knee joint Aspirate: 38 mL clear and serous Medications: 12 mg betamethasone acetate-betamethasone sodium phosphate 6 mg/mL Anesthetics: 3 mL lidocaine (PF) 10 mg/mL (1 %) Outcome: Tolerated well, no immediate complications Post-injection instructions were reviewed with the patient and the patient voiced understanding of these instructions. Informed Consent Consent Obtained: Verbal [place] Protocol A moment to CARE was completed. SIGN IN Personnel directly involved with the procedure wore the appropriate PPE. Special Equipment: N/A Patient/Surrogate Stated/Verified: Patient name, Date of , Relevant allergies and Intended procedure TIME OUT Relevant labs, photos, and/or imaging studies have been reviewed. Consent documented and matches the intended procedure. Correct side/site marked and visible. Medications required for procedure verified. No fire risk assessment and interventions applicable. No implant(s) inserted. Sravani Allen PA-C [facility] 06-11-2024 History of Present illness Narrative Associated Order(s): Large Joint Arthro/Inj: L knee joint Post-Procedure Diagnose(s): Pseudogout; Chronic pain of left knee Mr. Grey Alonzo presents today for left knee aspiration and corticosteroid injection. Today he rates his pain a 4 on a scale of 0 to 10. His last injection was 02/27/2024 and his last aspiration was 05/28/2024. Large Joint Arthro/Inj: L knee joint 06/11/2024 8:14 AM The procedure site was prepped in the usual sterile fashion. Site: L knee joint Aspirate: 38 mL clear and serous Medications: 12 mg betamethasone acetate-betamethasone sodium phosphate 6 mg/mL Anesthetics: 3 mL lidocaine (PF) 10 mg/mL (1 %) Outcome: Tolerated well, no immediate complications Post-injection instructions were reviewed with the patient and the patient voiced understanding of these instructions. Informed Consent Consent Obtained: Verbal [place] Protocol A moment to CARE was completed. SIGN IN Personnel directly involved with the procedure wore the appropriate PPE. Special Equipment: N/A Patient/Surrogate Stated/Verified: Patient name, Date of , Relevant allergies and Intended procedure TIME OUT Relevant labs, photos, and/or imaging studies have been reviewed. Consent documented and matches the intended procedure. Correct side/site marked and visible. Medications required for procedure verified. No fire risk assessment and interventions applicable. No implant(s) inserted. Sravani Allen PA-C documented in this encounter [facility] 05-28-2024 Note HNO ID: [id number] Author: CASSANDRA SULLIVAN, DO Service: ? Author Type: Physician Type: Progress Notes Filed: 05/28/2024 09:32 Note Text: Follow Up Visit Chief Complaint Grey Alonzo is a 63 year old male who presents today for follow up office visit. Patient presents with: Left Knee - Follow Up, Knee Pain History of Present Illness PAIN EVALUATION 05/24/2024 1028 Pain Level: 4 Pain Location: Knee-Left Description: Aching;Tightness Frequency: Continuous Intervention/Comfort measure: Medication;Splinting HPI: Grey Alonzo is a 63 year old male for a follow up visit left knee pain. Patient received a cortisone injection at last office visit. He states that he has noticed improvement in pain since. Still some swelling and minimal pains. Patient recently on prednisone taper, last dose was this past Friday. Pain history is noted as above. Denies calf pain, numbness, tingling, fever, chills or other constitutional symptoms. Is there any overall improvement in your condition? Yes, with injection Any new injury, since being seen last: No REVIEW OF SYMPTOMS: Patient did not have, and does not currently have, any weight loss, malaise, fever, chills, headache, chest pain, chest pressure, palpitations, cough, shortness of breath, orthopnea, paroxsymal nocturnal dyspnea, nausea, vomiting, diarrhea, constipation, melena, hematochezia, urinary difficulties, prolonged bleeding, easily bruising, heat or cold intolerance, new onset joint pain or swelling, new onset extremity weakness or numbness, new onset auditory or visual disturbances, lightheadedness, dizziness, partial loss of consciousness or full loss of consciousness. Current Outpatient Medications Medication Sig RINVOQ 15 mg tablet 1 tablet Orally Once a day for 30 days metoprolol succinate ER (TOPROL XL) 50 mg 24 hr tablet TAKE 1 TABLET (50 MG) ORALLY DAILY cyanocobalamin (VITAMIN B-12) 1,000 mcg tab 1 tab(s) orally once a day for 30 day(s) cholecalciferol (VITAMIN D3) 400 unit tab as directed orally once a day for 30 day(s) Ascorbic Acid 1,000 mg tablet 1 tab(s) orally once a day for 30 day(s) XIIDRA 5 % ophthalmic drops INSTILL 1 DROP IN BOTH EYES TWICE DAILY HUMIRA PEN 40 mg/0.8 mL sulfaSALAzine EC (AZULFIDINE EN) 500 mg EC tablet 2 TAB(S) ORALLY 2 TIMES A DAY 30 DAYS methotrexate 2.5 mg tablet folic acid 1 mg tablet chlorthalidone (HYGROTON) 25 mg tablet Take 25 mg by mouth once daily. cyclobenzaprine (FLEXERIL) 10 mg tablet Take 1 tablet by mouth every 8 hours as needed. (Patient not taking: Reported on 10/31/2023) lisinopril (ZESTRIL, PRINIVIL) 10 mg tablet Take 10 mg by mouth once daily. (Patient not taking: Reported on 10/31/2023) No current facility-administered medications for this visit. Physical Exam Vitals: There were no vitals taken for this visit. Psych: Pleasant, good affect and mood General Appearance: Well appearing, alert, in no acute distress, well-hydrated, well nourished.. Skin: Skin color, texture, turgor normal, no suspicious rashes or lesions. Peripheral Pulses: Normal. Neurologic: Gait normal. Reflexes normal and symmetric. Sensation grossly intact.. Lymph Nodes: No cervical lymphadenopathy, No supraclavicular lymphadenopathy, No axillary lymphadenopathy., and No inguinal lymphadenopathy.. Respiratory: No recent pulmonary infection, hemoptysis, chronic cough, or shortness of breath at rest Rheumatologic: Joint deformities: left knee pain Ortho Exam Assessment and Plan Radiographs: No imaging to review. Impression: Encounter Diagnosis ICD-10-CM 1. Chronic pain of left knee M25.562 G89.29 2. Pseudogout M11.20 Today, in detail, through a thorough evaluation, we discussed possible etiologies of pain and our plans for further diagnostic and therapeutic interventions. We discussed strategies for decreasing pain and improving strength, stability and motion. Patient's questions were answered in detailed. Patient verbalizes understanding and agrees with the treatment plan as discussed. Left knee aspiration today only Discussed recent illness/bronchitis/ etc and feeling better but diff to work outside in cold weather as affects lungs, etc Follow up in 2-3 weeks for left knee aspiration/steroid injection with Caryn LEARY as just recently finished oral steroids, not horrendous knee pain today and mostly swelling so aspiration and defer injection for now Patient aware and in agreement of plan. All questions answered. Large Joint Arthro/Inj: L knee joint 05/28/2024 9:30 AM The procedure site was prepped in the usual sterile fashion. Site: L knee joint Aspirate: 35 mL clear and yellow Outcome: Tolerated well, no immediate complications Post-injection instructions were reviewed with the patient and the patient voiced understanding of these instructions. Informed Consent Consent Obtained: Verbal [place] Protocol A moment to CARE was comple (more content not included)... [facility] 05-28-2024 History of Present illness Narrative Associated Order(s): Large Joint Arthro/Inj: L knee joint Post-Procedure Diagnose(s): Pseudogout; Chronic pain of left knee Images from the original note were not included. Follow Up Visit Chief Complaint Grey Alonzo is a 63 year old male who presents today for follow up office visit. Patient presents with: Left Knee - Follow Up, Knee Pain History of Present Illness PAIN EVALUATION 05/24/2024 1028 Pain Level: 4 Pain Location: Knee-Left Description: Aching;Tightness Frequency: Continuous Intervention/Comfort measure: Medication;Splinting HPI: Grey Alonzo is a 63 year old male for a follow up visit left knee pain. Patient received a cortisone injection at last office visit. He states that he has noticed improvement in pain since. Still some swelling and minimal pains. Patient recently on prednisone taper, last dose was this past Friday. Pain history is noted as above. Denies calf pain, numbness, tingling, fever, chills or other constitutional symptoms. Is there any overall improvement in your condition? Yes, with injection Any new injury, since being seen last: No REVIEW OF SYMPTOMS: Patient did not have, and does not currently have, any weight loss, malaise, fever, chills, headache, chest pain, chest pressure, palpitations, cough, shortness of breath, orthopnea, paroxsymal nocturnal dyspnea, nausea, vomiting, diarrhea, constipation, melena, hematochezia, urinary difficulties, prolonged bleeding, easily bruising, heat or cold intolerance, new onset joint pain or swelling, new onset extremity weakness or numbness, new onset auditory or visual disturbances, lightheadedness, dizziness, partial loss of consciousness or full loss of consciousness. Current Outpatient Medications Medication Sig RINVOQ 15 mg tablet 1 tablet Orally Once a day for 30 days metoprolol succinate ER (TOPROL XL) 50 mg 24 hr tablet TAKE 1 TABLET (50 MG) ORALLY DAILY cyanocobalamin (VITAMIN B-12) 1,000 mcg tab 1 tab(s) orally once a day for 30 day(s) cholecalciferol (VITAMIN D3) 400 unit tab as directed orally once a day for 30 day(s) Ascorbic Acid 1,000 mg tablet 1 tab(s) orally once a day for 30 day(s) XIIDRA 5 % ophthalmic drops INSTILL 1 DROP IN BOTH EYES TWICE DAILY HUMIRA PEN 40 mg/0.8 mL sulfaSALAzine EC (AZULFIDINE EN) 500 mg EC tablet 2 TAB(S) ORALLY 2 TIMES A DAY 30 DAYS methotrexate 2.5 mg tablet folic acid 1 mg tablet chlorthalidone (HYGROTON) 25 mg tablet Take 25 mg by mouth once daily. cyclobenzaprine (FLEXERIL) 10 mg tablet Take 1 tablet by mouth every 8 hours as needed. (Patient not taking: Reported on 10/31/2023) lisinopril (ZESTRIL, PRINIVIL) 10 mg tablet Take 10 mg by mouth once daily. (Patient not taking: Reported on 10/31/2023) No current facility-administered medications for this visit. Physical Exam Vitals: There were no vitals taken for this visit. Psych: Pleasant, good affect and mood General Appearance: Well appearing, alert, in no acute distress, well-hydrated, well nourished.. Skin: Skin color, texture, turgor normal, no suspicious rashes or lesions. Peripheral Pulses: Normal. Neurologic: Gait normal. Reflexes normal and symmetric. Sensation grossly intact.. Lymph Nodes: No cervical lymphadenopathy, No supraclavicular lymphadenopathy, No axillary lymphadenopathy., and No inguinal lymphadenopathy.. Respiratory: No recent pulmonary infection, hemoptysis, chronic cough, or shortness of breath at rest Rheumatologic: Joint deformities: left knee pain Ortho Exam Assessment and Plan Radiographs: No imaging to review. Impression: Encounter Diagnosis ICD-10-CM 1. Chronic pain of left knee M25.562 G89.29 2. Pseudogout M11.20 Today, in detail, through a thorough evaluation, we discussed possible etiologies of pain and our plans for further diagnostic and therapeutic interventions. We discussed strategies for decreasing pain and improving strength, stability and motion. Patient's questions were answered in detailed. Patient verbalizes understanding and agrees with the treatment plan as discussed. Left knee aspiration today only Discussed recent illness/bronchitis/ etc and feeling better but diff to work outside in cold weather as affects lungs, etc Follow up in 2-3 weeks for left knee aspiration/steroid injection with Caryn LEARY as just recently finished oral steroids, not horrendous knee pain today and mostly swelling so aspiration and defer injection for now Patient aware and in agreement of plan. All questions answered. Large Joint Arthro/Inj: L knee joint 05/28/2024 9:30 AM The procedure site was prepped in the usual sterile fashion. Site: L knee joint Aspirate: 35 mL clear and yellow Outcome: Tolerated well, no immediate complications Post-injection instructions were reviewed with the patient and the patient voiced understanding of these instructions. Informed Consent Consent Obtained: Verbal [place] Protocol A moment to CARE was completed. SIGN IN Personnel directly involved with the procedure wore the appropriate PPE. Special Equipment: Yes Patient/Surrogate Stated/Verified: Patient name, Date of , Relevant allergies and Intended procedure TIME OUT Relevant labs, photos, and/or imaging studies have been reviewed. Intended patient and procedure match the source document(s). Consent documented and matches the intended procedure. Correct side/site marked and visible. Medications required for procedure verified. Fire risk assessed and interventions discussed. No implant(s) inserted. SIGN OUT All instruments, equipment, possible retained foreign bodies accounted for. Cassandra Sullivan D.O. M.P.H. documented in this encounter [facility] 05-20-2024 History of Present illness Narrative Subjective Patient ID: Grey Alonzo is a 63 y.o. male. They present today with a chief complaint of Sore Throat, Earache, and Cough. History of Present Illness Pt reports had cold 2 wks ago and went to see a [employer]IP[employer] at a local urgent care. He was treated with Tamiflu, zpak and steroid. He said he started feeling better and noticed throat pain 1.5 wks ago and ear pressure, drainage. Sore Throat Associated symptoms include congestion, coughing and ear pain. Pertinent negatives include no abdominal pain, diarrhea, ear discharge, shortness of breath or vomiting. Earache Associated symptoms include coughing, rhinorrhea and a sore throat. Pertinent negatives include no abdominal pain, diarrhea, ear discharge, rash or vomiting. Cough Associated symptoms include ear pain, rhinorrhea and a sore throat. Pertinent negatives include no chest pain, chills, eye redness, fever, rash or shortness of breath. Past Medical History Allergies as of 05/20/2024 (No Known Allergies) (Not in a hospital admission) History reviewed. No pertinent past medical history. History reviewed. No pertinent surgical history. reports that he has never smoked. He has been exposed to tobacco smoke. He has never used smokeless tobacco. Alcohol use questions deferred to the physician. Drug use questions deferred to the physician. Review of Systems Review of Systems Constitutional: Negative for chills, fatigue and fever. HENT: Positive for congestion, ear pain, rhinorrhea and sore throat. Negative for ear discharge, sinus pain and sneezing. Eyes: Negative for pain, discharge, redness and itching. Respiratory: Positive for cough. Negative for chest tightness and shortness of breath. Cardiovascular: Negative for chest pain. Gastrointestinal: Negative for abdominal pain, diarrhea, nausea and vomiting. Musculoskeletal: Negative for arthralgias and joint swelling. Skin: Negative for rash. Objective Vitals: 05/20/24 0855 BP: (!) 127/91 BP Location: Right arm Patient Position: Sitting BP Cuff Size: Large adult Pulse: 89 Resp: 18 Temp: 36.6 C (97.9 F) TempSrc: Oral SpO2: 95% Weight: 112 kg (247 lb 12.8 oz) Height: 1.753 m (5' 9) No LMP for male patient. Physical Exam Constitutional: Appearance: Normal appearance. HENT: Head: Normocephalic and atraumatic. Right Ear: Tympanic membrane, ear canal and external ear normal. Left Ear: Tympanic membrane, ear canal and external ear normal. Nose: Congestion and rhinorrhea present. Mouth/Throat: Pharynx: No oropharyngeal exudate or posterior oropharyngeal erythema. Cardiovascular: Rate and Rhythm: Normal rate and regular rhythm. Heart sounds: No murmur heard. Pulmonary: Effort: Pulmonary effort is normal. No respiratory distress. Breath sounds: No stridor. No wheezing, rhonchi or rales. Skin: General: Skin is warm and dry. Neurological: Mental Status: He is alert and oriented to person, place, and time. Psychiatric: Mood and Affect: Mood normal. Procedures Point of Care Test & Imaging Results from this visit Results for orders placed or performed in visit on 05/20/24 POCT rapid strep A manually resulted Result Value Ref Range POC Rapid Strep Negative Negative No results found. Diagnostic study results (if any) were reviewed by Megan Leroy PA-C. Assessment/Plan Allergies, medications, history, and pertinent labs/EKGs/Imaging reviewed by Megan Leroy PA-C. Medical Decision Making Strep test negative No signs of acute ear infection Suspicious for viral syndrome/post nasal drip/eustachian tube dysfunction Will treat with short course of steroid but educated side effects with oral steroid tx since he is on tx for RA Orders and Diagnoses Diagnoses and all orders for this visit: Viral URI Sore throat - POCT rapid strep A manually resulted Pharyngitis, unspecified etiology - methylPREDNISolone (Medrol Dospak) 4 mg tablets; Follow schedule on package instructions Dysfunction of both eustachian tubes - methylPREDNISolone (Medrol Dospak) 4 mg tablets; Follow schedule on package instructions Medical Admin Record Patient disposition: Home Electronically signed by Megan Leroy PA-C 9:33 AM documented in this encounter [facility] Work Phone: 05-20-2024 Instructions Megan Leroy PA-C - 05/20/2024 8:55 AM EST Take medication as instructed Continue sinus wash/Flonase, salt water gargle F/U with PCP if no improvement documented in this encounter [facility] Work Phone: 02-27-2024 Note HNO ID: [id number] Author: CASSANDRA SULLIVAN, DO Service: ? Author Type: Physician Type: Progress Notes Filed: 02/27/2024 11:25 Note Text: Follow Up Visit Chief Complaint Grey Alonzo is a 63 year old male who presents today for follow up office visit. Patient presents with: Left Knee - Follow Up, Knee Pain History of Present Illness PAIN EVALUATION 02/27/2024 0933 Pain Level: 5 Pain Location: Knee-Left Description: Sore;Aching;Throbbing Duration Amount of Time: 8 Duration Units: Months Frequency: Continuous Intervention/Comfort measure: -- cortisone injection HPI: Grey Alonzo is a 63 year old male for a follow up visit left knee pain. Patient had a cortisone injection in October that gave about 3-4 weeks of relief. He continues to have moderate constant pains in the knee. He is taking Aleve for pain. Pain history is noted as above. Denies calf pain, numbness, tingling, fever, chills or other constitutional symptoms. Is there any overall improvement in your condition? No Any new injury, since being seen last: No REVIEW OF SYMPTOMS: Patient did not have, and does not currently have, any weight loss, malaise, fever, chills, headache, chest pain, chest pressure, palpitations, cough, shortness of breath, orthopnea, paroxsymal nocturnal dyspnea, nausea, vomiting, diarrhea, constipation, melena, hematochezia, urinary difficulties, prolonged bleeding, easily bruising, heat or cold intolerance, new onset joint pain or swelling, new onset extremity weakness or numbness, new onset auditory or visual disturbances, lightheadedness, dizziness, partial loss of consciousness or full loss of consciousness. Current Outpatient Medications Medication Sig RINVOQ 15 mg tablet 1 tablet Orally Once a day for 30 days metoprolol succinate ER (TOPROL XL) 50 mg 24 hr tablet TAKE 1 TABLET (50 MG) ORALLY DAILY cyanocobalamin (VITAMIN B-12) 1,000 mcg tab 1 tab(s) orally once a day for 30 day(s) cholecalciferol (VITAMIN D3) 400 unit tab as directed orally once a day for 30 day(s) Ascorbic Acid 1,000 mg tablet 1 tab(s) orally once a day for 30 day(s) XIIDRA 5 % ophthalmic drops INSTILL 1 DROP IN BOTH EYES TWICE DAILY HUMIRA PEN 40 mg/0.8 mL sulfaSALAzine EC (AZULFIDINE EN) 500 mg EC tablet 2 TAB(S) ORALLY 2 TIMES A DAY 30 DAYS methotrexate 2.5 mg tablet folic acid 1 mg tablet chlorthalidone (HYGROTON) 25 mg tablet Take 25 mg by mouth once daily. cyclobenzaprine (FLEXERIL) 10 mg tablet Take 1 tablet by mouth every 8 hours as needed. (Patient not taking: Reported on 10/31/2023) lisinopril (ZESTRIL, PRINIVIL) 10 mg tablet Take 10 mg by mouth once daily. (Patient not taking: Reported on 10/31/2023) No current facility-administered medications for this visit. Physical Exam Vitals: There were no vitals taken for this visit. Psych: Pleasant, good affect and mood General Appearance: Well appearing, alert, in no acute distress, well-hydrated, well nourished.. Skin: Skin color, texture, turgor normal, no suspicious rashes or lesions. Peripheral Pulses: Normal. Neurologic: Gait normal. Reflexes normal and symmetric. Sensation grossly intact.. Lymph Nodes: No cervical lymphadenopathy, No supraclavicular lymphadenopathy, No axillary lymphadenopathy., and No inguinal lymphadenopathy.. Respiratory: No recent pulmonary infection, hemoptysis, chronic cough, or shortness of breath at rest Rheumatologic: Joint deformities: left knee pain Right Knee Exam Right knee exam is normal. Muscle Strength The patient has normal right knee strength. Tenderness The patient is experiencing no tenderness. Range of Motion Extension: normal Flexion: normal Tests Ted: Anterior - negative Posterior - negative Drawer: Anterior - negative Posterior - negative Other Erythema: absent Sensation: normal Pulse: present Swelling: none Left Knee Exam Tenderness The patient is experiencing tenderness in the medial joint line and lateral joint line. Range of Motion Extension: normal Flexion: normal Tests Ted: Anterior - negative Posterior - negative Drawer: Anterior - negative Posterior - negative Other Erythema: absent Sensation: normal Pulse: present Swelling: moderate Comments: Neg homans bilaterally Assessment and Plan Radiographs: I have independently reviewed films and my findings are the same. and I have reviewed the images with the patient and family. Impression: Encounter Diagnosis ICD-10-CM 1. Chronic pain of left knee M25.562 G89.29 2. Pseudogout M11.20 Today, in detail, through a thorough evaluation, we discussed possible etiologies of pain and our plans for further diagnostic and therapeutic interventions. We discussed strategies for decreasing pain and improving strength, stability and motion. Patient's questions were answered in detailed. Patient verbalizes understanding and agrees with the treatment plan as discuss (more content not included)... [facility] 02-27-2024 History of Present illness Narrative Associated Order(s): Large Joint Arthro/Inj: L knee joint Post-Procedure Diagnose(s): Pseudogout; Chronic pain of left knee Images from the original note were not included. Follow Up Visit Chief Complaint Grey Alonzo is a 63 year old male who presents today for follow up office visit. Patient presents with: Left Knee - Follow Up, Knee Pain History of Present Illness PAIN EVALUATION 02/27/2024 0933 Pain Level: 5 Pain Location: Knee-Left Description: Sore;Aching;Throbbing Duration Amount of Time: 8 Duration Units: Months Frequency: Continuous Intervention/Comfort measure: -- cortisone injection HPI: Grey Alonzo is a 63 year old male for a follow up visit left knee pain. Patient had a cortisone injection in October that gave about 3-4 weeks of relief. He continues to have moderate constant pains in the knee. He is taking Aleve for pain. Pain history is noted as above. Denies calf pain, numbness, tingling, fever, chills or other constitutional symptoms. Is there any overall improvement in your condition? No Any new injury, since being seen last: No REVIEW OF SYMPTOMS: Patient did not have, and does not currently have, any weight loss, malaise, fever, chills, headache, chest pain, chest pressure, palpitations, cough, shortness of breath, orthopnea, paroxsymal nocturnal dyspnea, nausea, vomiting, diarrhea, constipation, melena, hematochezia, urinary difficulties, prolonged bleeding, easily bruising, heat or cold intolerance, new onset joint pain or swelling, new onset extremity weakness or numbness, new onset auditory or visual disturbances, lightheadedness, dizziness, partial loss of consciousness or full loss of consciousness. Current Outpatient Medications Medication Sig RINVOQ 15 mg tablet 1 tablet Orally Once a day for 30 days metoprolol succinate ER (TOPROL XL) 50 mg 24 hr tablet TAKE 1 TABLET (50 MG) ORALLY DAILY cyanocobalamin (VITAMIN B-12) 1,000 mcg tab 1 tab(s) orally once a day for 30 day(s) cholecalciferol (VITAMIN D3) 400 unit tab as directed orally once a day for 30 day(s) Ascorbic Acid 1,000 mg tablet 1 tab(s) orally once a day for 30 day(s) XIIDRA 5 % ophthalmic drops INSTILL 1 DROP IN BOTH EYES TWICE DAILY HUMIRA PEN 40 mg/0.8 mL sulfaSALAzine EC (AZULFIDINE EN) 500 mg EC tablet 2 TAB(S) ORALLY 2 TIMES A DAY 30 DAYS methotrexate 2.5 mg tablet folic acid 1 mg tablet chlorthalidone (HYGROTON) 25 mg tablet Take 25 mg by mouth once daily. cyclobenzaprine (FLEXERIL) 10 mg tablet Take 1 tablet by mouth every 8 hours as needed. (Patient not taking: Reported on 10/31/2023) lisinopril (ZESTRIL, PRINIVIL) 10 mg tablet Take 10 mg by mouth once daily. (Patient not taking: Reported on 10/31/2023) No current facility-administered medications for this visit. Physical Exam Vitals: There were no vitals taken for this visit. Psych: Pleasant, good affect and mood General Appearance: Well appearing, alert, in no acute distress, well-hydrated, well nourished.. Skin: Skin color, texture, turgor normal, no suspicious rashes or lesions. Peripheral Pulses: Normal. Neurologic: Gait normal. Reflexes normal and symmetric. Sensation grossly intact.. Lymph Nodes: No cervical lymphadenopathy, No supraclavicular lymphadenopathy, No axillary lymphadenopathy., and No inguinal lymphadenopathy.. Respiratory: No recent pulmonary infection, hemoptysis, chronic cough, or shortness of breath at rest Rheumatologic: Joint deformities: left knee pain Right Knee Exam Right knee exam is normal. Muscle Strength The patient has normal right knee strength. Tenderness The patient is experiencing no tenderness. Range of Motion Extension: normal Flexion: normal Tests Ted: Anterior - negative Posterior - negative Drawer: Anterior - negative Posterior - negative Other Erythema: absent Sensation: normal Pulse: present Swelling: none Left Knee Exam Tenderness The patient is experiencing tenderness in the medial joint line and lateral joint line. Range of Motion Extension: normal Flexion: normal Tests Ted: Anterior - negative Posterior - negative Drawer: Anterior - negative Posterior - negative Other Erythema: absent Sensation: normal Pulse: present Swelling: moderate Comments: Neg homans bilaterally Assessment and Plan Radiographs: I have independently reviewed films and my findings are the same. and I have reviewed the images with the patient and family. Impression: Encounter Diagnosis ICD-10-CM 1. Chronic pain of left knee M25.562 G89.29 2. Pseudogout M11.20 Today, in detail, through a thorough evaluation, we discussed possible etiologies of pain and our plans for further diagnostic and therapeutic interventions. We discussed strategies for decreasing pain and improving strength, stability and motion. Patient's questions were answered in detailed. Patient verbalizes understanding and agrees with the treatment plan as discussed. Options for treatment are: Do nothing Nsaids- rx or otc Topical pain meds- voltaren or lidocaine Injections- PRP, Steroid, or Gel: risks and benefits given for each MRI if limited oa and meniscus tear suspected Physical Therapy Bracing Arthroscopy Mediterranean Diet/ turmeric/ low carb Weight loss if necessary Discussed options for treatment for OA Decreased weight, increased strength, core strengthening, hamstring strengthening Antiinflammatory diet Glucosamine meds indications and length of time discussed Patient aware and in agreement of plan. All questions answered. Total joint replacement if pain and/or arthritis worsens and not relieved with above measures Large Joint Arthro/Inj: L knee joint Informed Consent Consent Obtained: Verbal [place] Protocol A moment to CARE was completed. SIGN IN Personnel directly involved with the procedure wore the appropriate PPE. Special Equipment: Yes Patient/Surrogate Stated/Verified: Patient name, Date of , Relevant allergies and Intended procedure TIME OUT Intended patient and procedure match the source document(s). Consent documented and matches the intended procedure. Relevant labs, photos, and/or imaging studies have been reviewed. Correct side/site marked and visible. Medications required for procedure verified. Fire risk assessed and interventions discussed. No implant(s) inserted. 02/27/2024 11:24 AM The procedure site was prepped in the usual sterile fashion. Site: L knee joint Aspirate: 40 mL clear and yellow Medications: 80 mg triamcinolone acetonide 40 mg/mL Anesthetics: 8 mL BUPivacaine (PF) 0.5 % (5 mg/mL) Outcome: Tolerated well, no immediate complications Post-injection instructions were reviewed with the patient and the patient voiced understanding of these instructions. SIGN OUT All instruments, equipment, possible retained foreign bodies accounted for. Injection 10/30 Pseudogout Brace at home Discussed tka or injection or pt, not candidate for surgical arthroscopy d/t psuedo and oa Cassandra Sullivan D.O. M.P.H. documented in this encounter [facility] 10-31-2023 Note HNO ID: [id number] Author: CASSANDRA SULLIVAN DO Service: ? Author Type: Physician Type: Progress Notes Filed: 10/31/2023 08:42 Note Text: Large Joint Arthro/Inj: L knee joint Informed Consent Consent Obtained: Verbal [place] Protocol A moment to CARE was completed. SIGN IN Sign in communication not applicable due to emergent procedure. Personnel directly involved with the procedure wore the appropriate PPE. Special Equipment: N/A Patient/Surrogate Stated/Verified: Patient name, Date of , Relevant allergies and Intended procedure TIME OUT Intended patient and procedure match the source document(s). Relevant labs, photos, and/or imaging studies have been reviewed. Correct side/site marked and visible. Medications required for procedure verified. No fire risk assessment and interventions applicable. No implant(s) inserted. 10/31/2023 8:21 AM The procedure site was prepped in the usual sterile fashion. Site: L knee joint Medications: 80 mg triamcinolone acetonide 40 mg/mL Anesthetics: 8 mL BUPivacaine (PF) 0.5 % (5 mg/mL) Outcome: Tolerated well, no immediate complications Post-injection instructions were reviewed with the patient and the patient voiced understanding of these instructions. SIGN OUT All instruments, equipment, possible retained foreign bodies accounted for. Reason for Visit/Chief Complaint Grey Alonzo is a 63 year old male who presents today for a new evaluation of following complaint: Patient presents with: Left Knee - New, Knee Pain, Swelling History of Present Illness: PAIN EVALUATION 10/30/2023 1800 Pain Level: 7 Pain Location: Knee-Left Description: Stiffness;Throbbing;Tightness Duration Units: Months Frequency: Continuous Intervention/Comfort measure: Medication;Cold;Heat HPI: Grey Alonzo is a 63 year old male presenting today with left knee pain. Patient states that he has been having knee pain for about 7-8 weeks now. He states he just woke up one morning and was experiencing medial knee pain. He does complain of some pain on the lateral aspect of his knee too. Pain history is noted as above. Denies calf pain, numbness, tingling, fever, chills or other constitutional symptoms. Previous Treatments: Ice: Yes Heat: Yes Brace: No NSAIDs: Yes, Aleve Injections: No Surgeries: No Physical Therapy: No Review of Systems: Patient did not have, and does not currently have, any weight loss, malaise, fever, chills, headache, chest pain, chest pressure, palpitations, cough, shortness of breath, orthopnea, paroxsymal nocturnal dyspnea, nausea, vomiting, diarrhea, constipation, melena, hematochezia, urinary difficulties, prolonged bleeding, easily bruising, heat or cold intolerance, new onset joint pain or swelling, new onset extremity weakness or numbness, new onset auditory or visual disturbances, lightheadedness, dizziness, partial loss of consciousness or full loss of consciousness. Current Outpatient Medications on File Prior to Visit Medication Sig RINVOQ 15 mg tablet 1 tablet Orally Once a day for 30 days metoprolol succinate ER (TOPROL XL) 50 mg 24 hr tablet TAKE 1 TABLET (50 MG) ORALLY DAILY cyanocobalamin (VITAMIN B-12) 1,000 mcg tab 1 tab(s) orally once a day for 30 day(s) cholecalciferol (VITAMIN D3) 400 unit tab as directed orally once a day for 30 day(s) Ascorbic Acid 1,000 mg tablet 1 tab(s) orally once a day for 30 day(s) XIIDRA 5 % ophthalmic drops INSTILL 1 DROP IN BOTH EYES TWICE DAILY HUMIRA PEN 40 mg/0.8 mL sulfaSALAzine EC (AZULFIDINE EN) 500 mg EC tablet 2 TAB(S) ORALLY 2 TIMES A DAY 30 DAYS methotrexate 2.5 mg tablet folic acid 1 mg tablet chlorthalidone (HYGROTON) 25 mg tablet Take 25 mg by mouth once daily. cyclobenzaprine (FLEXERIL) 10 mg tablet Take 1 tablet by mouth every 8 hours as needed. (Patient not taking: Reported on 10/31/2023) lisinopril (ZESTRIL, PRINIVIL) 10 mg tablet Take 10 mg by mouth once daily. (Patient not taking: Reported on 10/31/2023) No current facility-administered medications on file prior to visit. ALLERGIES No Known Allergies Physical Exam: Vitals: There were no vitals taken for this visit. Psych: Pleasant, good affect and mood General Appearance: Well appearing, alert, in no acute distress, well-hydrated, well nourished.. Skin: Skin color, texture, turgor normal, no suspicious rashes or lesions. Peripheral Pulses: Normal. Neurologic: Gait normal. Reflexes normal and symmetric. Sensation grossly intact.. Lymph Nodes: No cervical lymphadenopathy, No supraclavicular lymphadenopathy, No axillary lymphadenopathy., and No inguinal lymphadenopathy.. Respiratory: No recent pulmonary infection, hemoptysis, chronic cough, or shortness of breath at rest Rheumatologic: Joint deformities: left knee pain Ortho Exam Imaging: Last XR Knee - Impression Only XR KNEE GENERAL 4V AP BOTH/PA BOTH/LAT/MERC LEFT Exam End: 10/31/2023 7:47 (more content not included)... [facility] 10-31-2023 History of Present illness Narrative Associated Order(s): Large Joint Arthro/Inj: L knee joint Post-Procedure Diagnose(s): Pseudogout; Chronic pain of left knee Images from the original note were not included. Large Joint Arthro/Inj: L knee joint Informed Consent Consent Obtained: Verbal [place] Protocol A moment to CARE was completed. SIGN IN Sign in communication not applicable due to emergent procedure. Personnel directly involved with the procedure wore the appropriate PPE. Special Equipment: N/A Patient/Surrogate Stated/Verified: Patient name, Date of , Relevant allergies and Intended procedure TIME OUT Intended patient and procedure match the source document(s). Relevant labs, photos, and/or imaging studies have been reviewed. Correct side/site marked and visible. Medications required for procedure verified. No fire risk assessment and interventions applicable. No implant(s) inserted. 10/31/2023 8:21 AM The procedure site was prepped in the usual sterile fashion. Site: L knee joint Medications: 80 mg triamcinolone acetonide 40 mg/mL Anesthetics: 8 mL BUPivacaine (PF) 0.5 % (5 mg/mL) Outcome: Tolerated well, no immediate complications Post-injection instructions were reviewed with the patient and the patient voiced understanding of these instructions. SIGN OUT All instruments, equipment, possible retained foreign bodies accounted for. Reason for Visit/Chief Complaint Grey Alonzo is a 63 year old male who presents today for a new evaluation of following complaint: Patient presents with: Left Knee - New, Knee Pain, Swelling History of Present Illness: PAIN EVALUATION 10/30/2023 1800 Pain Level: 7 Pain Location: Knee-Left Description: Stiffness;Throbbing;Tightness Duration Units: Months Frequency: Continuous Intervention/Comfort measure: Medication;Cold;Heat HPI: Grey Alonzo is a 63 year old male presenting today with left knee pain. Patient states that he has been having knee pain for about 7-8 weeks now. He states he just woke up one morning and was experiencing medial knee pain. He does complain of some pain on the lateral aspect of his knee too. Pain history is noted as above. Denies calf pain, numbness, tingling, fever, chills or other constitutional symptoms. Previous Treatments: Ice: Yes Heat: Yes Brace: No NSAIDs: Yes, Aleve Injections: No Surgeries: No Physical Therapy: No Review of Systems: Patient did not have, and does not currently have, any weight loss, malaise, fever, chills, headache, chest pain, chest pressure, palpitations, cough, shortness of breath, orthopnea, paroxsymal nocturnal dyspnea, nausea, vomiting, diarrhea, constipation, melena, hematochezia, urinary difficulties, prolonged bleeding, easily bruising, heat or cold intolerance, new onset joint pain or swelling, new onset extremity weakness or numbness, new onset auditory or visual disturbances, lightheadedness, dizziness, partial loss of consciousness or full loss of consciousness. Current Outpatient Medications on File Prior to Visit Medication Sig RINVOQ 15 mg tablet 1 tablet Orally Once a day for 30 days metoprolol succinate ER (TOPROL XL) 50 mg 24 hr tablet TAKE 1 TABLET (50 MG) ORALLY DAILY cyanocobalamin (VITAMIN B-12) 1,000 mcg tab 1 tab(s) orally once a day for 30 day(s) cholecalciferol (VITAMIN D3) 400 unit tab as directed orally once a day for 30 day(s) Ascorbic Acid 1,000 mg tablet 1 tab(s) orally once a day for 30 day(s) XIIDRA 5 % ophthalmic drops INSTILL 1 DROP IN BOTH EYES TWICE DAILY HUMIRA PEN 40 mg/0.8 mL sulfaSALAzine EC (AZULFIDINE EN) 500 mg EC tablet 2 TAB(S) ORALLY 2 TIMES A DAY 30 DAYS methotrexate 2.5 mg tablet folic acid 1 mg tablet chlorthalidone (HYGROTON) 25 mg tablet Take 25 mg by mouth once daily. cyclobenzaprine (FLEXERIL) 10 mg tablet Take 1 tablet by mouth every 8 hours as needed. (Patient not taking: Reported on 10/31/2023) lisinopril (ZESTRIL, PRINIVIL) 10 mg tablet Take 10 mg by mouth once daily. (Patient not taking: Reported on 10/31/2023) No current facility-administered medications on file prior to visit. ALLERGIES No Known Allergies Physical Exam: Vitals: There were no vitals taken for this visit. Psych: Pleasant, good affect and mood General Appearance: Well appearing, alert, in no acute distress, well-hydrated, well nourished.. Skin: Skin color, texture, turgor normal, no suspicious rashes or lesions. Peripheral Pulses: Normal. Neurologic: Gait normal. Reflexes normal and symmetric. Sensation grossly intact.. Lymph Nodes: No cervical lymphadenopathy, No supraclavicular lymphadenopathy, No axillary lymphadenopathy., and No inguinal lymphadenopathy.. Respiratory: No recent pulmonary infection, hemoptysis, chronic cough, or shortness of breath at rest Rheumatologic: Joint deformities: left knee pain Ortho Exam Imaging: Last XR Knee - Impression Only XR KNEE GENERAL 4V AP BOTH/PA BOTH/LAT/MERC LEFT Exam End: 10/31/2023 7:47 AM (In process) Assessment and Plan: Impression: Encounter Diagnosis ICD-10-CM 1. Chronic pain of left knee M25.562 SYNOVIAL FLUID, ROUTINE G89.29 2. Pseudogout M11.20 Plan: Today, in detail, through a thorough evaluation, we discussed possible etiologies of pain and our plans for further diagnostic and therapeutic interventions. We discussed strategies for decreasing pain and improving strength, stability and motion. Patient's questions were answered in detailed. Patient verbalizes understanding and agrees with the treatment plan as discussed. Discussed with patient possible options for treatment. Patient elected proceed with injection. Patient told not to submerge the injected area for 24 hours in a hot tub, or bath, injection may take 2 weeks for improvement to be noticed, follow-up in 2 -6 weeks if symptoms do not resolve. All questions answered patient agreement of plan. Apply ice Limit activities as discussed Rest Do not submerge limb in water for 24 hours Cont current meds Watch sugars/decrease carbs Call if warm/hot/red Discussed with patient that if the injection does not work after 2 to 4 weeks to come back for reevaluation. Discussed the next 3 days may feel worse before it feels better. Discussed if having continued pain to return. May get injection every 3 months Cassandra Sullivan D.O. M.P.H. documented in this encounter [facility] 10-31-2023 History of Present illness Narrative Radiology Service Progress Note PATIENT NAME: Grey Alonzo DATE OF SERVICE: October 31, 2023 TIME: 7:47 AM PATIENT IDENTITY VERIFICATION COMPLETED USING TWO (2) IDENTIFIERS: Name and Date of confirmed by patient verbally. FALL SCREENING: Has the patient had 2 falls in the last year or 1 fall with injury or currently using an Ambulatory Assistive Device (Walker, Cane, Wheelchair, Crutches, etc.)? No PATIENT GENDER DATA: Male PATIENT RELEVANT IMPLANT DATA REVIEWED: Not Applicable PATIENT PRESENTS WITH AN IMPLANTABLE OR ATTACHED ELEMENTARY ASSISTANT PRINCIPAL: No RADIOLOGY DEPARTMENT: General X-ray: Exam(s) Completed: Lower Extremity X-Ray(s): Knee, AP / Lat / Tunne / Merchant Left and Wt. Bearing PERIPHERAL IV DATA: Not applicable SIGNED BY: Latrell Barragan October 31, 2023 7:47 AM documented in this encounter [facility] 10-31-2023 Note HNO ID: [id number] Author: ELISE LOUIS Tech Service: ? Author Type: [employer] Supervisor Type: Progress Notes Filed: 10/31/2023 07:47 Note Text: Radiology Service Progress Note PATIENT NAME: Grey Alonzo DATE OF SERVICE: October 31, 2023 TIME: 7:47 AM PATIENT IDENTITY VERIFICATION COMPLETED USING TWO (2) IDENTIFIERS: Name and Date of confirmed by patient verbally. FALL SCREENING: Has the patient had 2 falls in the last year or 1 fall with injury or currently using an Ambulatory Assistive Device (Walker, Cane, Wheelchair, Crutches, etc.)? No PATIENT GENDER DATA: Male PATIENT RELEVANT IMPLANT DATA REVIEWED: Not Applicable PATIENT PRESENTS WITH AN IMPLANTABLE OR ATTACHED ELEMENTARY ASSISTANT PRINCIPAL: No RADIOLOGY DEPARTMENT: General X-ray: Exam(s) Completed: Lower Extremity X-Ray(s): Knee, AP / Lat / Tunne / Merchant Left and Wt. Bearing PERIPHERAL IV DATA: Not applicable SIGNED BY: Latrell Barragan October 31, 2023 7:47 AM [facility] 02-15-2022 Instructions Matilde Aiken, OD - 02/15/2022 1:54 PM EST ASSESSMENT/PLAN: 1. Dry eye syndrome, bilateral - ICD9: 375.15, ICD10: H04.123 (primary diagnosis) 2. Meibomian gland dysfunction (MGD) of upper and lower lids of both eyes - ICD9: 373.00, ICD10: H02.88A, H02.88B Current Ophthalmic Meds lifitegrast (XIIDRA) 5 % ophthalmic drops Use 1 Drop in both eyes twice daily. Continue to use the Systane Complete as needed. 3. Combined form of senile cataract of both eyes - ICD9: 366.19, ICD10: H25.813 Mild cataract in both eyes. Well tolerated at this time. Discussed possible future affect on daily activities to watch for. Monitor as instructed. 4. Floaters, bilateral - ICD9: 379.24, ICD10: H43.393 Vitreal floaters stable both eyes. Retinas flat and intact with no apparent retinal tear or traction. Discussed symptoms of retinal tear/detachment and if seen patient will return to clinic without delay. Return in one year for dilation for floaters, cataracts, and dry eyes documented in this encounter [facility] 02-15-2022 History of Present illness Narrative ASSESSMENT/PLAN: 1. Dry eye syndrome, bilateral - ICD9: 375.15, ICD10: H04.123 (primary diagnosis) 2. Meibomian gland dysfunction (MGD) of upper and lower lids of both eyes - ICD9: 373.00, ICD10: H02.88A, H02.88B Current Ophthalmic Meds lifitegrast (XIIDRA) 5 % ophthalmic drops Use 1 Drop in both eyes twice daily. Continue to use the Systane Complete as needed. 3. Combined form of senile cataract of both eyes - ICD9: 366.19, ICD10: H25.813 Mild cataract in both eyes. Well tolerated at this time. Discussed possible future affect on daily activities to watch for. Monitor as instructed. 4. Floaters, bilateral - ICD9: 379.24, ICD10: H43.393 Vitreal floaters stable both eyes. Retinas flat and intact with no apparent retinal tear or traction. Discussed symptoms of retinal tear/detachment and if seen patient will return to clinic without delay. Return in one year for dilation for floaters, cataracts, and dry eyes Matilde Aiken, OD I have confirmed and edited as necessary the relevant ophthalmic history, ROS, and the neuro exam findings as obtained by others. I have seen and examined this patient. 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 Floaters, bilateral [facility] Left [facility] pain, unspecified chronicity- [facility] Chronic pain of left knee- Primary Pain in joint, lower leg Pseudogout Other disorder of calcium metabolism [facility] Left knee pain, unspecified chronicity [facility] Chronic pain of left knee- Primary Pain in joint, lower leg Pseudogout Other disorder of calcium metabolism [facility] [facility]* Diagnosis Onset Date Resolution Status Musculoskeletal pain acute Musculoskeletal strain acute Psoriatic arthritis acute [facility] Work Phone: Evaluation note* Diagnosis Viral URI- Primary Acute upper respiratory infections of unspecified site Sore throat Acute pharyngitis Pharyngitis, unspecified etiology Dysfunction of both eustachian tubes documented in this encounter [facility] Work Phone: Evaluation note* Diagnosis Chronic pain of left knee- Primary Pain in joint, lower leg Pseudogout Other disorder of calcium metabolism [facility] Diagnosis Chronic pain of left knee- Primary Pain in joint, lower leg Pseudogout Other disorder of calcium metabolism [facility] Chronic pain of left knee- Primary Pain in joint, lower leg Pseudogout Other disorder of calcium metabolism Primary osteoarthritis of left knee Primary localized osteoarthrosis, lower leg documented in this encounter [facility] for referral (narrative)* Diagnostic Procedure Only (Routine) - New Request Specialty Diagnoses / Procedures Referred By Yobany rubin Referred To Contact XR IMAGING Diagnoses Left knee pain, unspecified chronicity Procedures XR KNEE GENERAL 4V AP BOTH/PA BOTH/LAT/MERC LEFT RADIOLOGIC EXAM KNEE COMPLETE 4/MORE VIEWS Sravani Allen PA-C [address] [place] [address] [place] [address] Referral ID Status Reason Start Date Expiration Date Visits Requested Visits Authorized [id number] New Request Auto-Generat ed Referral 10/21/2023 11/19/2024 1 1 [facility] for referral (narrative)* Diagnostic Procedure Only (Routine) - Closed Specialty Diagnoses / Procedures Referred By Yobany rubin Referred To Contact XR IMAGING Diagnoses Left knee pain, unspecified chronicity Procedures XR KNEE GENERAL 4V AP BOTH/PA BOTH/LAT/MERC LEFT RADIOLOGIC EXAM KNEE COMPLETE 4/MORE VIEWS Sravani Allen PA-C [address] [phone] [place] [address] Referral ID Status Reason Start Date Expiration Date V isits Requested Visits Authorized [id number] Closed Auto-Generate d Referral 10/21/2023 11/19/2024 1 [facility] Diagnostic Procedure Only (Routine) - Closed Specialty Diagnoses / Procedures Referred By Contac t Referred To Contact XR IMAGING Diagnoses Left knee pain, unspecified chronicity Procedures XR KNEE GENERAL 4V AP BOTH/PA BOTH/LAT/MERC LEFT RADIOLOGIC EXAM KNEE COMPLETE 4/MORE VIEWS Sravani Allen PA-C [address] [place] [address] [place] [address] Referral ID Status Reason Start Date Expiration Date V isits Requested Visits Authorized [id number] Closed Auto-Generate d Referral 10/21/2023 11/19/2024 1 1 [facility] Summary Purpose Family History Relationship Condition Age at Onset Recorded Date/T belen Not Specified Malignant neoplasm of throat Unknown Diabetes mellitus Unknown Congestive heart failure Unknown Cardiac disease Unknown Migraine headache Unknown Cardiac defibrillator in place Unknown Acute poliomyelitis Unknown Asthma Unknown father Malignant neoplasm of colon Unknown Advance Directives Documents on File Type Date Recorded Patient Flat Finisher Expl anation Advance Directive(s) 01/22/2018 9:15 AM Documents on File Type Date Recorded Patient Flat Finisher Expl anation Advance Directive(s) 01/22/2018 9:15 AM Chief Complaint and Reason for Visit Chief Complaint Kenalog shot & medre fills Reason for Visit Psoriatic arthritis Seasonal allergies Hypertension Chief Complaint Abdominal pain & Med refills Reason for Visit Musculoskeletal pain Musculoskeletal strain Psoriatic arthritis Medications Administered Section Active Administered Medications - up to 3 most recent administrations Medication Order MAR Action Action Date Dose Rate Site PHENYLephrine 2.5 % 1 Drop (AK-DILATE, SUDHA-SYNEPHRINE) 1 Drop, BOTH EYES, DIRECTED, Starting on Fri02/15/22 at 1300, Until 02/16/22 at 0059, Administer for dilation PROTECT FROM LIGHT Given 02/15/2022 1:00 PM EST 1 Drop proparacaine 0.5 % 1 Drop (ALCAINE) 1 Drop, BOTH EYES, DIRECTED, Starting on Fri02/15/22 at 1300, Until 02/16/22 at 0059, Administer for pneumo tonometry, tonopen tonometry, or pachymetry. In the event of a proparacaine shortage, administer tetracaine 0.5% ophthalmic drops 1 drop in the left eye as directed for pneumo tonometry, tonopen tonometry, or pachymetry Given 02/15/2022 1:00 PM EST 1 Drop tropicamide 1 % 1 Drop (MYDRIACYL) 1 Drop, BOTH EYES, DIRECTED, Starting on Fri02/15/22 at 1300, Until 02/16/22 at 0059, Administer for dilation Given 02/15/2022 1:00 PM EST 1 Drop Additional Source Comments (unrecognized sect ion and content) No Status Records FoundNo Status Records FoundNo Status Records FoundNo Status Records FoundNo Status Records FoundNo Status Records FoundNo Status Records Found INFORMATION SOURCE (unrecogn ized section and content) DATE CREATED AUTHOR 03/05/2018 [facility] DATE CREATED AUTHOR AUTHOR'S ORGANIZ ATION 07/21/2018 [facility] DATE CREATED AUTHOR AUTHOR'S ORGANIZ ATION 04/19/2020 [facility] DATE CREATED AUTHOR AUTHOR'S ORGANIZ ATION 04/19/2020 [employer] DATE CREATED AUTHOR AUTHOR'S ORGANIZ ATION 03/22/2023 [facility] DATE CREATED AUTHOR AUTHOR'S ORGANIZ ATION 07/24/2024 [facility] DATE CREATED AUTHOR AUTHOR'S ORGANIZ ATION 09/13/[address] [facility] Goals (unrecognized section and content) Goals may be documented in a n alternate sectionGoals may be documented in an alternate section Source Comments (unrecognize d section and content) In the event this informatio n is protected by the Federal Confidentiality of Alcohol and Drug Abuse Patient Records regulations: The Federal rules restrict any use of the information to criminally investigate or prosecute any alcohol or drug abuse patient.[facility] the event this information is protected by the Federal Confidentiality of Alcohol and Drug Abuse Patient Records regulations: The Federal rules restrict any use of the information to criminally investigate or prosecute any alcohol or drug abuse patient.[facility] the event this information is protected by the Federal Confidentiality of Alcohol and Drug Abuse Patient Records regulations: The Federal rules restrict any use of the information to criminally investigate or prosecute any alcohol or drug abuse patient.[facility] the event this information is protected by the Federal Confidentiality of Alcohol and Drug Abuse Patient Records regulations: The Federal rules restrict any use of the information to criminally investigate or prosecute any alcohol or drug abuse patient.[facility] the event this information is protected by the Federal Confidentiality of Alcohol and Drug Abuse Patient Records regulations: The Federal rules restrict any use of the information to criminally investigate or prosecute any alcohol or drug abuse patient.[facility] the event this information is protected by the Federal Confidentiality of Alcohol and Drug Abuse Patient Records regulations: The Federal rules restrict any use of the information to criminally investigate or prosecute any alcohol or drug abuse patient.[facility] the event this information is protected by the Federal Confidentiality of Alcohol and Drug Abuse Patient Records regulations: The Federal rules restrict any use of the information to criminally investigate or prosecute any alcohol or drug abuse patient.[facility] the event this information is protected by the Federal Confidentiality of Alcohol and Drug Abuse Patient Records regulations: The Federal rules restrict any use of the information to criminally investigate or prosecute any alcohol or drug abuse patient.[facility] the event this information is protected by the Federal Confidentiality of Alcohol and Drug Abuse Patient Records regulations: The Federal rules restrict any use of the information to criminally investigate or prosecute any alcohol or drug abuse patient.[facility] Reason for Visit (unrecogniz ed section and content) Reason Comments Dry Eye(s) Both Eyes Off and on Reason Comments Refill Request Reason Comments New Knee Pain Swelling Reason Comments Follow Up Knee Pain Reason Comments Sore Throat Earache Cough Reason Comments Established Patient Knee Pain Injections Reason Comments Established Patient Follow Up Care Teams (unrecognized sec tion and content) Fresh Work Wrapper Layer Relationship Specialty Start Date End Date Dmitri Boston, DIRECTOR CHILD.CATRACHITA PCP - General Family Medicine 07/18/20 Pcp, No 01/27/12 Fresh Work Wrapper Layer Relationship Specialty Start Date End Date Dmitri Boston APRN.CATRACHITA PCP - General Family Medicine 07/18/20 Pcp, No 01/27/12 Fresh Work Wrapper Layer Relationship Specialty Start Date End Date Dmitri Boston DIRECTOR CHILD.[employer]SI[employer] [address] [place], [place] [phone] PCP - General Family Medicine 07/18/20 Pcp, No, DIRECTOR CHILD 01/27/12 Fresh Work Wrapper Layer Relationship Specialty Start Date End Date Dmitri Boston APRN.[employer] [address] [place], [place] [phone] PCP - General Family Medicine 07/18/20 Pcp, No, DIRECTOR CHILD 01/27/12 Fresh Work Wrapper Layer Relationship Specialty Start Date End Date Dmitri Boston DIRECTOR CHILD.[employer] [address] [place], [place] [phone] PCP - General Family Medicine 07/18/20 Pcp, No, DIRECTOR CHILD 01/27/12 Fresh Work Wrapper Layer Relationship Specialty Start Date End Date Dmitri Boston DIRECTOR CHILD.[employer] [address] [place], [place] [phone] PCP - General Family Medicine 07/18/20 Orin Smith APRN 01/27/12 Team Status: Active Member Role Status Dates Dmitri Boston CAKE STRIPPER, CAKE STRIPPER-C Primary Care Provider Active Team Status: Inactive Member Role Status Dates Dmitri Boston CAKE STRIPPER, CAKE STRIPPER-C Primary Care Pr ovider, Attending Provider, Referring Provider Active Team Status: Inactive Member Role Status Dates Dmitri Boston CAKE STRIPPER, CAKE STRIPPER-C Primary Care Provider, Attend ing Provider Active Fresh Work Wrapper Layer Relationship Specialty Start Date End Date Dmitri Boston APRN-[employer] [address] After Hours Family Medicine [place], [place] [phone] PCP - General 04/17/20 Fresh Work Wrapper Layer Relationship Specialty Start Date End Date Dmitri Boston APRN.[employer] [address] [place], [place] [phone] PCP - General Family Medicine 07/18/20 Orin Smith APRN 01/27/12 Fresh Work Wrapper Layer Relationship Specialty Start Date End Date Dmitri Boston APRN.[employer] [address] [place], [place] [phone] PCP - General Family Medicine 07/18/20 Orin Smith DIRECTOR CHILD 01/27/12 Fresh Work Wrapper Layer Relationship Specialty Start Date End Date Dmitri Boston DIRECTOR CHILD.[employer] [address] [place], [place] [phone] PCP - General Family Medicine 07/18/20 Orin Smith APRN 01/27/12 FOR RECORDS PERTAINING TO PATIENTS WHO ARE OR HAVE BEEN ENROLLED IN A CHEMICAL DEPENDENCY/SUBSTANCEABUSE PROGRAM, SOME INFORMATION MAY BE OMITTED. This clinical summary was aggregated from multiple sources. Caution should be exercised in using it in the provision of clinical care. This summary normalizes information from multiple sources, and as a consequence, information in this document may materially change the coding, format and clinical context of patient data. In addition, data may be omitted in some cases. CLINICAL DECISIONS SHOULD BE BASED ON THE PRIMARY CLINICAL RECORDS. [facility] [employer] [facility] provides no warranty or guarantee of the accuracy or completeness of information in this document.
[2024-09-24 03:15] LABS: Absolute Lymphocyte Count 1.77 X10^3/uL (0.83-4.51); Absolute Neutrophil Count 5.7 X10^3/uL (2.0-7.7); Basophil# 0.02 X10^3/uL; Basophil% 0.2 % (0-1); Eosinophil# 0.13 X10^3/uL; Eosinophils% 1.5 % (0-5); Hematocrit 43.4 % (40-54); Hemoglobin 14.7 g/dL (13.0-16.5); Lymphocyte # 1.77 X10^3/ul (0.83-4.51); Lymphocyte % 20.5 % (19-41); Mean Corp Hgb Conc 33.9 g/dL (32-36); Mean Corpuscular Hgb 32.2 pg (27.0-32.0); Mean Platelet Vol. 9.8 fl (6.2-12.0); Monocyte# 0.94 X10^3/uL; Monocyte% 10.9 % (0-10); NRBC Flagged by Analyzer 0 % (0-5); Neutrophil # 5.73 X10^3/uL (2.7-7.7); Neutrophil % 66.4 % (47-70); Platelet Count 241 K/mm3 (150-450); RBC Distribution Width CV 14.3 % (11.6-14.6); RBC Distribution Width SD 48.4 fl (35.1-43.9); Red Blood Count 4.57 M/mm3 (4.6-6.2); White Blood Count 8.6 K/mm3 (4.4-11.0)
[2024-09-24 03:41] LABS: ALB/GLOB Ratio 1.6 RATIO (0.9-2.4); AST(SGOT) 44 U/L (<=37); Alanine Aminotransfer ALT/SGPT 37 U/L (<=46); Alkaline Phosphatase 77 U/L (40-129); Anion Gap 13 (5-15); BUN 24 mg/dL (4-19); BUN/Creat Ratio 23.9 RATIO (10-20); Calcium,Total 9.6 mg/dL (7.6-11.0); Carbon Dioxide 23.7 mmol/L (21.0-32.0); Chloride 101 mmol/L (98-108); Creatinine, Serum 0.98 mg/dL (0.70-1.20); EST Glomerular Filtration Rate 87 (>60); Globulin 2.5 g/dL (2.2-4.2); Glucose 138 mg/dL (70-99); Potassium 3.6 mmol/L (3.3-5.1); Protein, Total 6.6 g/dL (5.9-8.4); Sodium Level 138 mmol/L (133-145)
[2024-09-24 05:09] LABS: Cholesterol 255 mg/dL (<=200); High Density Lipoprotein 50 mg/dL; Low Density Lipoprotein Calc. 165 mg/dL; Triglycerides 204 mg/dL; Very Low Density Lipoprotein 41 mg/dL (5-40); cholesterol:hdl ratio screen 5.13
[2024-09-24 05:27] LABS: PSA,Total - Annual Screen 0.55 ng/mL (0.02-4.00)
== END | disposition home or self-care (01) ==
PROVIDERS: PCP Nurse Practitioner; Visit Provider Nurse Practitioner
DX: I10 Essential (primary) hypertension (principal); L40.50 Arthropathic psoriasis, unspecified; Z12.5 Encounter for screening for malignant neoplasm of prostate
CPT/HCPCS: 80053; 80061; 84153; 84443; 85025; G0103